=== PATIENT | male | born 1950 | race Caucasian/White ===

== ENCOUNTER 2017-03-27 16:22 | Outpatient (CLI) | payer MEDICARE, OTHER ==
--- NOTE | 2017-03-27 19:19 | MRI Report ---
EXAM: LEFT KNEE MRI WITHOUT CONTRAST EXAM DATE: 03/27/2017 06:14 PM. CLINICAL HISTORY: Left knee pain. COMPARISON: None. TECHNIQUE: Multiplanar, multisequence T1-weighted and fluid-sensitive sequences of the knee without c ontrast. Other: None. FINDINGS: Bones: Small foci of increased T2 signal seen subchondral lateral tibial plateau and also subchondral medial femoral condyle.. Marginal osteophytosis at the medial aspect of the patellofemoral joint. Articular Cartilage: Broad areas of multifocal grade 3-4 chondromalacia on both sides of the medial c ompartment. Lateral compartment also shows some grade 3-4, chondromalacia as well. Patellofemoral jaime nt shows some grade 1-2 chondromalacia at the trochlear groove. Medial Meniscus: Medial meniscus is truncated medially in the midportion. On the posterior aspect, th ere appears to be a focal fragment, which is flipped into the intercondylar notch. It is not a bucket -handle tear. Please see series 501 image 14, series 801 image 19. Lateral Meniscus: The lateral meniscus is intact. Cruciate Ligaments: The anterior and posterior cruciate ligaments are intact. Collateral Ligaments: Some edema around the MCL otherwise intact, LCL is normal. Tendons: The quadriceps, patellar, semimembranosus, and popliteus tendons are unremarkable. Musculature: No edema or fatty atrophy. Other: Trace joint effusion. Moderate multilobular popliteal cyst. No loose bodies. retinacula are i ntact, medial retinacula is somewhat swollen. No focal gaps. Subcutaneous soft tissue swelling and ed taylor seen anterior medially.. IMPRESSION: 1. Some foci of abnormal increased T2 signal subchondral lateral tibial plateau and subchondral media l femoral condyle, adjacent focal areas of grade 3-4 chondromalacia on both sides of the medial janelle rtment and some grade 3-4 chondromalacia on both sides of the lateral compartment. Patellofemoral jaime nt shows some grade 1-2 chondromalacia. 2. Medial meniscus is truncated in the midportion, posterior aspect appears to show a focal fragment flipped into the posterior intercondylar notch. This is not a bucket-handle tear. 3. Lateral meniscus, cruciates, and collaterals appear unremarkable. 4. Trace joint effusion. Moderate multilobular popliteal cyst. No loose bodies. Some subcutaneous sof t tissue swelling and edema anteromedially. [facility] MUSCULOSKELETAL RADIOLOGY SECTION Referring Provider Line: [phone] SITE ID: [id number]
== END 2017-03-27 16:23 | disposition home or self-care (01) ==
LOC: DI 16:22
PROVIDERS: ATTEND Orthopaedic Surgery
DX: M94.262 Chondromalacia, left knee (principal); M23.304 Other meniscus derangements, unspecified medial meniscus, left knee; M71.22 Synovial cyst of popliteal space [Baker], left knee; M25.462 Effusion, left knee

== ENCOUNTER 2017-04-20 10:30 | Outpatient (CLI) | payer MEDICARE, OTHER ==
[2017-04-20 10:46] LABS: BASOPHILS # (AUTO) 0.1 10^3/uL (0.0-0.1); BASOPHILS % (AUTO) 0.7 %; EOSINOPHILS # (AUTO) 0.7 10^3/uL (0.0-0.7); EOSINOPHILS % (AUTO) 8.6 %; HGB - HEMOGLOBIN 19.2 g/dL (14.0-18.0); LYMPHOCYTES # (AUTO) 1.6 10^3/uL (1.5-3.5); LYMPHOCYTES % (AUTO) 19.4 %; MEAN CORPUSCULAR HEMOGLOBIN 29.8 pg (27.0-31.0); MEAN CORPUSCULAR HGB CONC 34.2 g/dL (32.0-36.0); MEAN PLATELET VOLUME 8.7 fL (7.4-11.4); MONOCYTES # (AUTO) 0.7 10^3/uL (0.0-1.0); MONOCYTES % (AUTO) 8.9 %; NEUTROPHILS % (AUTO) 62.4 %; NUCLEATED RED BLOOD CELLS AUTO 0.2 /100WBC; RED BLOOD COUNT 6.43 10^6/uL (4.70-6.10); RED CELL DISTRIBUTION WIDTH 13.9 % (12.0-15.0); UNCORRECTED WHITE BLOOD COUNT 8.1 x10^3/uL; WHITE BLOOD COUNT 8.1 x10^3/uL (4.8-10.8)
== END 2017-04-20 10:31 | disposition home or self-care (01) ==
LOC: LAB 10:30
PROVIDERS: ATTEND Orthopaedic Surgery
DX: M17.12 Unilateral primary osteoarthritis, left knee (principal)
CPT/HCPCS: 36415; 85025; 87640

== ENCOUNTER 2017-04-28 07:59 | Inpatient (IN) | payer MEDICARE, OTHER ==
[~2017-04-28 07:59] MED LIST: ceFAZolin 2 GM/50 ML 50 ML IV ONE
[2017-04-28] MEDS ORDERED: LACTATED RINGERS 1,000 ML IV ONE ×3 (08:59→13:10)
[2017-04-28] MEDS ORDERED: MORPHINE PF 5 MG/10 ML AMP EP ONE (11:00)
[2017-04-28] MEDS ORDERED: MIDAZOLAM 2 MG/2 ML VIAL IVP ONE (11:00)
[2017-04-28] MEDS ORDERED: ACETAMINOPHEN 1,000 MG/100 ML 100 ML IV ONE (11:00)
[2017-04-28] MEDS ORDERED: ONDANSETRON 4 MG/2 ML VIAL IVP ONE (11:00)
[2017-04-28] MEDS ORDERED: KETOROLAC 30 MG/ML VIAL IVP ONE (11:00)
[2017-04-28] MEDS ORDERED: fentaNYL 100 MCG/2 ML VIAL IVP ONE (11:00)
[2017-04-28] MEDS ORDERED: PROPOFOL 200 MG/20 ML VIAL IVP ONE (11:00)
[2017-04-28] MEDS ORDERED: DEXAMETHASONE 4 MG/ML VIAL IVP ONE (11:00)
[2017-04-28] MEDS ORDERED: KETOROLAC 15 MG/ML VIAL IVP ONE (11:10)
[2017-04-28] MEDS ORDERED: MORPHINE PF 5 MG/10 ML AMP SUBQ ONE (11:10)
[2017-04-28] MEDS ORDERED: ROPIVACAINE 0.5% PF 20 ML AMPULE SUBQ ONE (11:10)
[2017-04-28] MEDS ORDERED: BUPIVACAINE 0.5% PF 30 ML VIAL SUBQ ONE (11:11)
[2017-04-28] MEDS ORDERED: EPINEPHrine 1 MG/ML AMP IVP ONE (11:11)
[2017-04-28] MEDS ORDERED: ZOLPIDEM 5 MG TABLET PO PRN (12:33)
[2017-04-28] MEDS ORDERED: [UNRECOGNIZED DRUG - OTHER] TOP PRN (12:33)
[2017-04-28] MEDS ORDERED: ACYCLOVIR TOP PRN (12:33)
[2017-04-28] MEDS ORDERED: CETIRIZINE 10 MG TABLET PO PRN (12:33)
[2017-04-28] MEDS ORDERED: ALUMINUM CHLORIDE TP PRN (12:33)
--- NOTE | 2017-04-28 12:33 | OPERATIVE REPORT ---
Operative Report - General Admit Date: 04/28/17 Procedure Date: 04/28/17 Planned Procedure: Left TKA Pre-Op Diagnosis: DJD Left knee Procedure Performed: Left TKA Post Op Diagnosis: same - Procedure Note Primary Surgeon: Zoila Anesthesia Provider: Caio Anesthesia Technique: Spinal Estimated Blood Loss (mL): 25 Drain/Tube Type: Hemovac
[2017-04-28] MEDS ORDERED: ONDANSETRON 4 MG/2 ML VIAL IVP PRN (12:35)
--- NOTE | 2017-04-28 14:23 | OPERATIVE REPORT ---
DATE OF SURGERY: 04/28/2017 00:00:00 PREOPERATIVE DIAGNOSIS: Left knee degenerative arthritis. POSTOPERATIVE DIAGNOSIS: Left knee degenerative arthritis. NAME OF PROCEDURE: Left total knee replacement arthroplasty. SURGEON: Stuart Cummings MD ANESTHESIA: Spinal by David Kearney. INDICATIONS FOR SURGERY: The patient is a 67-year-old male with progressive severe osteoarthritis of his knee. He has failed nonoperative management over a long period of time and has unremitting knee p ain not responsive to care. FINDINGS AT SURGERY: The patient's knee exam under anesthesia was 3 degrees to 120 degrees with good stability. At open surgery, he had osteophytes, effusion, areas of bare, exposed bone on both condyle s of the femur and mainly in the medial tibial compartment, the patient had some shredding of posteri or horns of the medial meniscus. DESCRIPTION OF OPERATIVE PROCEDURE: The patient was taken to the operating room, was given a spinal a nesthetic in a supine position, after which a tourniquet was placed on his thigh and his leg was ster ilely prepped and draped in standard fashion. Under tourniquet pressure of 300 mmHg and after adequat e timeout a medial incision was made on the left knee and a medial parapatellar incision. This approa ch was accomplished and the knee was able to be flexed with the patella off to the side. A rongeur wa s used to remove osteophytes and to resect the ACL and the anterior horns of the menisci were excised . With retractors in place, the intramedullary guide jeremy was placed stabilizing the distal femoral cu tting block on the femur. The cut was made, after which the distal femoral sizing was performed, sizi ng to a 10 and the appropriate 4 in 1 block obtained and inserted and the cuts made. Posterior osteop hytes on the femur were removed at this stage, including the posterior horns of the menisci. The tibi al external guide tower was applied and the cutting block at the appropriate height and slope for whi ch a proximal tibial cut was made and the bone surface sized for a tibial baseplate for a size G, the femur having sized to a 10. A trial reduction was performed and a 14 mm height poly seems to restore stability of the knee and medial and lateral planes and anterior and posterior. The patella was rese cted down to accomplish a medialized 35 mm diameter patellar for 9 mm thickness to restore anatomy. A slight lateral release was performed. The trial components were removed, and the knee was prepared f or cementing of implants utilizing Palacos with gentamicin for cementing and first cementing in the n atural tibia cemented 5-degree stemmed, size C implant followed by the size 10 cruciate retaining Per rashard femur and then inserting the 14 mm high medial congruent poly and finally inserting the 35 mm di ameter polyethylene all poly patella. Excess cement was removed. Cement was allowed to harden. A drai n was placed superior lateral. The knee was flushed thoroughly and then closed in sequential fashion, first with FiberWire closure of the medial retinaculum and 0 and 2-0 Vicryl of the subcutaneous tiss ues and Monocryl, 3-0 closure of the skin. Sterile dressings were applied. The patient was transporte d from the OR table to hospital bed and taken to recovery room in stable condition. ESTIMATED BLOOD LOSS: Minimal. COMPLICATIONS: None. SPONGE AND NEEDLE COUNTS: Correct. JOB #: [id number] EXT JOB #:[id number]
[2017-04-28] MEDS: ceFAZolin 2 GM/50 ML 50 ML IV SCH ×2 (15:19→23:59)
[2017-04-28] MEDS: SODIUM CHLORIDE FLUSH 0.9% 10 ML SYRINGE IVP SCH ×2 (15:19→21:02)
[2017-04-28] MEDS: SODIUM CHLORIDE 0.45% 1,000 ML IV SCH (15:19)
--- NOTE | 2017-04-28 18:15 | XRAY Report ---
TWO VIEW LEFT KNEE: 04/28/2017 CLINICAL INDICATION: Postop. Frontal and lateral views of the left knee demonstrate a knee replacement in place. Suprapatellar dr walden is seen. Subcutaneous gas is present. There is no evidence of acute fracture or immediate hardw are complication. IMPRESSION: EXPECTED POSTOPERATIVE APPEARANCE OF LEFT KNEE REPLACEMENT. 13:9:29 JOB #: [id number] EXT JOB #:[id number]
[2017-04-28] MEDS ORDERED: MORPHINE 2 MG/ML CARPUJECT IVP PRN (20:02)
[2017-04-28] MEDS ORDERED: oxyCODONE 5 MG TABLET PO PRN (20:04)
[2017-04-28] MEDS: ACETAMINOPHEN 325 MG TABLET PO PRN (21:00)
[2017-04-28] MEDS ORDERED: TRIAMCINOLONE 0.1% CREAM 15 GM TUBE TOP PRN (21:00)
[2017-04-28] MEDS: oxyCODONE 5 MG TABLET PO PRN (21:01)
[2017-04-29 05:44] LABS: HCT - HEMATOCRIT 44.8 % (42.0-52.0); HGB - HEMOGLOBIN 15.2 g/dL (14.0-18.0)
[2017-04-29 05:49] LABS: CALCIUM 7.8 mg/dL (8.5-10.3); CREATININE 1.2 mg/dL (0.6-1.2)
[2017-04-29] MEDS: oxyCODONE 5 MG TABLET PO PRN ×4 (06:54→19:34)
[2017-04-29] MEDS: SODIUM CHLORIDE FLUSH 0.9% 10 ML SYRINGE IVP SCH ×3 (06:59→20:09)
--- NOTE | 2017-04-29 07:43 | PROVIDER PROGRESS NOTE ---
Subjective - General Admit Date: 04/28/17 Procedure Date: 04/28/17 Post Op Days: 1 Procedure Performed: Left Total KNee Arthroplasty - Review of Systems Wound/Incisions: positive: Healing well Objective - Patient Data Reviewed Vital Signs: Yes Vital Signs: Vital Signs x48h Temp Pulse Resp BP Pulse Ox 04/29/17 06:48 36.8 C 71 18 114/60 96 04/29/17 00:58 37.0 C 78 18 116/65 94 Intake & Output: Intake and Output Totals x24h 04/27/17 04/28/17 04/29/17 23:59 23:59 23:59 Intake Total 3018 1000 Output Total 850 635 Balance 2168 365 - Lab Results Lab Results: 04/29/17 04:58 04/29/17 04:58 Other Lab Results: Lab Results x24hrs 04/29/17 04/29/17 Range/Units 04:58 04:58 Hgb 15.2 (14.0-18.0) g/dL Hct 44.8 (42.0-52.0) % Sodium 138 (135-145) mmol/L Potassium 4.0 (3.5-5.0) mmol/L Chloride 103 (101-111) mmol/L Carbon Dioxide 30 (21-32) mmol/L Anion Gap 5.0 L (6-13) BUN 18 (6-20) mg/dL Creatinine 1.2 (0.6-1.2) mg/dL Estimated GFR (MDRD) 60 L (>89) Glucose 119 H (70-100) mg/dL Calcium 7.8 L (8.5-10.3) mg/dL - Imaging Results Radiology Imaging: positive: EMP read indepedently - Current Medications Current Medications: Current Medications Generic Name Dose Route Start Last Admin Trade Name Freq PRN Reason Stop Dose Admin Acetaminophen 650 - 975 mg 04/28/17 12:35 04/28/17 21:00 Tylenol PO 650 mg Q4HR PRN Administration PAIN Sodium Chloride 1,000 mls @ 100 mls/hr 04/28/17 13:00 04/29/17 00:00 Normal Saline 0.45% IV 100 mls/hr .Q10H RASHAUN Administration Non-Formulary Medication 100 mg 04/29/17 09:00 04/29/17 07:38 Testosterone Cypionate [Depo-Testosterone] IM 04/29/17 09:01 Not Given UD [facility] Oxycodone HCl 10 mg 04/28/17 20:05 04/29/17 06:54 Roxicodone PO 10 mg Q4HR PRN Administration PAIN Sodium Chloride 10 ml 04/28/17 14:00 04/29/17 06:59 Normal Saline Flush 0.9% IVP Not Given Q8HR RASHAUN Impression/Plan - Problem List Problem List: POD #1
[2017-04-29] MEDS: THYROID 60 MG TABLET PO SCH (08:39)
[2017-04-29] MEDS: LISINOPRIL 20 MG TABLET PO SCH (08:39)
[2017-04-29] MEDS: OMEGA-3 ACID ETHYL ESTERS 1 GM CAPSULE PO SCH (08:39)
[2017-04-29] MEDS: PRAZOSIN 1 MG CAPSULE PO SCH (08:40)
[2017-04-29] MEDS ORDERED: SILDENAFIL CITRATE 100 MG PO PRN (09:00)
[2017-04-29] MEDS ORDERED: TESTOSTERONE CYPIONATE 100 MG IM SCH (09:00)
[2017-04-29] MEDS: SODIUM CHLORIDE 0.45% 1,000 ML IV SCH ×3 (11:01→23:01)
[2017-04-29] MEDS: ACETAMINOPHEN 325 MG TABLET PO PRN ×2 (12:14→20:56)
[2017-04-29] MEDS: MORPHINE 2 MG/ML SYRINGE IVP PRN ×3 (13:03→20:56)
[2017-04-29] MEDS: SODIUM CHLORIDE FLUSH 0.9% 10 ML SYRINGE IVP PRN (21:08)
[2017-04-29] MEDS: HYDROmorphone 1 MG/ML SYRINGE IVP PRN (23:04)
[2017-04-30] MEDS: HYDROmorphone 1 MG/ML SYRINGE IVP PRN ×7 (01:19→19:04)
[2017-04-30] MEDS: SODIUM CHLORIDE 0.45% 1,000 ML IV SCH ×2 (05:01→09:02)
[2017-04-30] MEDS: SODIUM CHLORIDE FLUSH 0.9% 10 ML SYRINGE IVP SCH ×3 (05:02→20:57)
[2017-04-30] MEDS: HYDROmorphone 2 MG TABLET PO PRN ×2 (05:53→11:36)
--- NOTE | 2017-04-30 07:51 | PROVIDER PROGRESS NOTE ---
Subjective - General Admit Date: 04/28/17 Procedure Date: 04/28/17 Post Op Days: 2 Procedure Performed: Left Total KNee Arthroplasty - Review of Systems Wound/Incisions: positive: Healing well General: positive: Fatigue Musculoskeletal: positive: Joint pain Objective - Patient Data Reviewed Vital Signs: Yes Vital Signs: Vital Signs x48h Temp Pulse Resp BP Pulse Ox 04/30/17 04:00 36.9 C 80 16 143/70 H 92 04/30/17 00:00 38.1 C H 79 16 138/61 H 96 Intake & Output: Intake and Output Totals x24h 04/28/17 04/29/17 04/30/17 23:59 23:59 23:59 Intake Total 3018 1760 693 Output Total 156 0243 3195 Balance 2168 -275 -782 - Lab Results Lab Results: 04/29/17 04:58 04/29/17 04:58 - Current Medications Current Medications: Current Medications Generic Name Dose Route Start Last Admin Trade Name Freq PRN Reason Stop Dose Admin Acetaminophen 650 - 975 mg 04/28/17 12:35 04/29/17 20:56 Tylenol PO 975 mg Q4HR PRN Administration PAIN Hydromorphone HCl 1 mg 04/29/17 21:47 04/30/17 07:41 Dilaudid Inj IVP 1 mg Q2HR PRN Administration moderate pain/Breakthrough black Hydromorphone HCl 2 mg 04/29/17 21:44 04/30/17 05:53 Dilaudid PO 2 mg Q6HR PRN Administration Severe Pain/Breakthrough pain Sodium Chloride 1,000 mls @ 100 mls/hr 04/28/17 13:00 04/30/17 05:01 Normal Saline 0.45% IV Not Given .Q10H RASHAUN Lisinopril 20 mg 04/29/17 09:00 04/29/17 08:39 Zestril PO 20 mg DAILY RASHAUN Administration [id number] Ethyl Esters 1 gm 04/29/17 09:00 04/29/17 08:39 Lovaza PO 1 gm DAILY RASHAUN Administration Oxycodone HCl 10 mg 04/28/17 20:05 04/29/17 19:34 Roxicodone PO 10 mg Q4HR PRN Administration PAIN Prazosin HCl 5 mg 04/29/17 09:00 04/29/17 08:40 Minipress PO 5 mg DAILY RASHAUN Administration Sodium Chloride 10 ml 04/28/17 12:35 04/29/17 21:08 Normal Saline Flush 0.9% IVP 10 ml PRN PRN Administration NEEDED PER PROVIDER ORDERS Sodium Chloride 10 ml 04/28/17 14:00 04/30/17 05:02 Normal Saline Flush 0.9% IVP Not Given Q8HR RASHAUN Thyroid 30 mg 04/29/17 09:00 04/29/17 08:39 [place] Thyroid PO 30 mg DAILY RASHAUN Administration - Physical Exam Wound/Incisions: positive: Dressing dry and intact Extremities: positive: Joint swelling Neurologic/Psychiatric: positive: Motor nml, Sensation nml, Mood/affect nml Impression/Plan - Problem List Problem List: POD#2 Continue with PT. Aim for D/C tomorrow
[2017-04-30] MEDS ORDERED: DOCUSATE SODIUM 250 MG CAPSULE PO SCH (09:00)
[2017-04-30] MEDS ORDERED: SENNA 8.6 MG TABLET PO SCH (09:00)
[2017-04-30] MEDS: PRAZOSIN 1 MG CAPSULE PO SCH (09:03)
[2017-04-30] MEDS: OMEGA-3 ACID ETHYL ESTERS 1 GM CAPSULE PO SCH (09:04)
[2017-04-30] MEDS: LISINOPRIL 20 MG TABLET PO SCH (09:04)
[2017-04-30] MEDS: POLYETHYLENE GLYCOL 3350 17 GM PACKET PO SCH (09:06)
[2017-04-30] MEDS: ENOXAPARIN 40 MG/0.4 ML SYRINGE SUBQ SCH ×2 (09:07→09:08)
[2017-04-30] MEDS: THYROID 60 MG TABLET PO SCH (10:58)
[2017-04-30] MEDS: ACETAMINOPHEN 325 MG TABLET PO PRN ×2 (11:36→15:56)
[2017-04-30] MEDS: SODIUM CHLORIDE FLUSH 0.9% 10 ML SYRINGE IVP PRN (19:04)
[2017-04-30] MEDS ORDERED: PRAZOSIN 1 MG CAPSULE PO SCH (21:00)
[2017-05-01] MEDS: SODIUM CHLORIDE FLUSH 0.9% 10 ML SYRINGE IVP PRN (00:25)
[2017-05-01] MEDS: HYDROmorphone 1 MG/ML SYRINGE IVP PRN (00:25)
[2017-05-01] MEDS: SODIUM CHLORIDE 0.45% 1,000 ML IV SCH (01:32)
[2017-05-01] MEDS ORDERED: MAGNESIUM HYDROXIDE 2,400 MG/30 ML UDC PO SCH (04:00)
[2017-05-01] MEDS: HYDROmorphone 2 MG TABLET PO PRN (05:57)
[2017-05-01] MEDS: SODIUM CHLORIDE FLUSH 0.9% 10 ML SYRINGE IVP SCH (05:59)
[2017-05-01] MEDS ORDERED: SENNA 8.6 MG TABLET PO SCH (06:00)
[2017-05-01 06:05] VITALS: BP 119/57
[2017-05-01 06:07] LABS: HCT - HEMATOCRIT 41.3 % (42.0-52.0); MEAN CORPUSCULAR HEMOGLOBIN 29.9 pg (27.0-31.0); MEAN CORPUSCULAR VOLUME 87.9 fL (80.0-94.0); MEAN PLATELET VOLUME 8.7 fL (7.4-11.4); RED BLOOD COUNT 4.69 10^6/uL (4.70-6.10); RED CELL DISTRIBUTION WIDTH 13.8 % (12.0-15.0); WHITE BLOOD COUNT 11.1 x10^3/uL (4.8-10.8)
[2017-05-01] MEDS: ACETAMINOPHEN 325 MG TABLET PO PRN (06:08)
--- NOTE | 2017-05-01 06:28 | Discharge Plan ---
Discharge Plan Disposition: 01 Home, Self Care Condition: Good Prescriptions: HYDROmorphone [Dilaudid] 2 mg PO Q4H PRN #40 tablet PRN Reason: Severe Pain/Breakthrough pain Enoxaparin [Lovenox] 40 mg SUBQ DAILY #10 syringe Senna [Senokot] 8.6 - 17.2 mg PO TID #30 tablet Walker 1 each MC DAILY #1 each Diet: Regular Activity Restrictions: Wt Bearing as Tolerated Shower Restrictions: Yes (cover left knee) Driving Restrictions: Yes (no driving) Assistance Devices: Walker Weight Bearing: Full Weight Follow-Up Care: Outpatient Rehab - PT No Smoking: If you smoke, Please STOP! Call for help. Follow-up with: Gilmar Morales DO [Primary Care Provider] - Stuart Cummings MD [Provider Admit Priv/Credential] -
--- NOTE | 2017-05-01 06:44 | PROVIDER PROGRESS NOTE ---
Subjective - General Admit Date: 04/28/17 Procedure Date: 04/28/17 Post Op Days: 3 Procedure Performed: Left Total KNee Arthroplasty - Review of Systems Wound/Incisions: positive: Dressing dry and intact General: positive: Fever (low grade fevers at night (38)) Musculoskeletal: positive: Joint pain Objective - Patient Data Reviewed Vital Signs: Yes Vital Signs: Vital Signs x48h Temp Pulse Resp BP Pulse Ox 05/01/17 06:12 38.0 C H 84 18 119/57 L 95 04/30/17 23:00 37.0 C 77 20 128/61 93 Intake & Output: Intake and Output Totals x24h 04/29/17 04/30/17 05/01/17 23:59 23:59 23:59 Intake Total 1760 2256 Output Total 2036 0351 800 Balance -575 -2259 -800 - Lab Results Lab Results: 05/01/17 05:38 04/29/17 04:58 Other Lab Results: Lab Results x24hrs 05/01/17 Range/Units 05:38 WBC 11.1 H (4.8-10.8) x10^3/uL RBC 4.69 L (4.70-6.10) 10^6/uL Hgb 14.0 (14.0-18.0) g/dL Hct 41.3 L (42.0-52.0) % MCV 87.9 (80.0-94.0) fL MCH 29.9 (27.0-31.0) pg MCHC 34.0 (32.0-36.0) g/dL RDW 13.8 (12.0-15.0) % Plt Count 144 (130-450) 10^3/uL MPV 8.7 (7.4-11.4) fL - Current Medications Current Medications: Current Medications Generic Name Dose Route Start Last Admin Trade Name Freq PRN Reason Stop Dose Admin Acetaminophen 650 - 975 mg 04/28/17 12:35 05/01/17 06:08 Tylenol PO 975 mg Q4HR PRN Administration PAIN Cetirizine HCl 5 mg 04/28/17 12:33 04/30/17 20:59 Zyrtec PO 5 mg DAILY PRN Administration Allergy Symptoms Enoxaparin Sodium 40 mg 04/30/17 08:00 04/30/17 09:08 Lovenox SUBQ 40 mg DAILY RASHAUN Administration Hydromorphone HCl 1 mg 04/29/17 21:47 05/01/17 00:25 Dilaudid Inj IVP 1 mg Q2HR PRN Administration moderate pain/Breakthrough black Hydromorphone HCl 2 mg 04/29/17 21:44 05/01/17 05:57 Dilaudid PO 2 mg Q6HR PRN Administration Severe Pain/Breakthrough pain Sodium Chloride 1,000 mls @ 100 mls/hr 04/28/17 13:00 05/01/17 01:32 Normal Saline 0.45% IV Not Given .Q10H RASHAUN Lisinopril 20 mg 04/29/17 09:00 04/30/17 09:04 Zestril PO 20 mg DAILY RASHAUN Administration [id number] Ethyl Esters 1 gm 04/29/17 09:00 04/30/17 09:04 Lovaza PO 1 gm DAILY RASHAUN Administration Oxycodone HCl 10 mg 04/28/17 20:05 04/29/17 19:34 Roxicodone PO 10 mg Q4HR PRN Administration PAIN Polyethylene Glycol 17 gm 04/30/17 09:00 04/30/17 09:06 Miralax PO 17 gm DAILY RASHAUN Administration Prazosin HCl 5 mg 04/30/17 21:00 04/30/17 20:59 Minipress PO 5 mg QPM RASHAUN Administration Senna 8.6 - 17.2 mg 05/01/17 06:00 05/01/17 06:01 Senokot PO 17.2 mg TID RASHAUN Administration Sodium Chloride 10 ml 04/28/17 12:35 05/01/17 00:25 Normal Saline Flush 0.9% IVP 10 ml PRN PRN Administration NEEDED PER PROVIDER ORDERS Sodium Chloride 10 ml 04/28/17 14:00 05/01/17 05:59 Normal Saline Flush 0.9% IVP 10 ml Q8HR RASHAUN Administration Thyroid 30 mg 04/29/17 09:00 04/30/17 10:58 [place] Thyroid PO 30 mg DAILY RASHAUN Administration Zolpidem Tartrate 2.5 mg 04/28/17 12:33 04/30/17 20:58 Ambien PO 2.5 mg HS PRN Administration Restlessness - Physical Exam Wound/Incisions: positive: Dressing dry and intact General Appearance: positive: No acute distress Extremities: positive: Joint swelling Neurologic/Psychiatric: positive: Motor nml, Sensation nml, Mood/affect nml Impression/Plan - Problem List Problem List: POD #3 pt is moving well and reasonably comfortable with PO pain meds. mild low grade fever at night. Plan to continue with meds. d/c to home, f/u next wk in clinic.
[2017-05-01] MEDS ORDERED: DOCUSATE SODIUM 250 MG CAPSULE PO SCH (09:00)
[2017-05-01] MEDS: LISINOPRIL 20 MG TABLET PO SCH (09:08)
[2017-05-01] MEDS: THYROID 60 MG TABLET PO SCH (09:08)
[2017-05-01] MEDS: OMEGA-3 ACID ETHYL ESTERS 1 GM CAPSULE PO SCH (09:09)
[2017-05-01] MEDS: ENOXAPARIN 40 MG/0.4 ML SYRINGE SUBQ SCH (09:09)
[2017-05-01] MEDS: POLYETHYLENE GLYCOL 3350 17 GM PACKET PO SCH (09:09)
--- NOTE | 2017-05-07 13:09 | DISCHARGE SUMMARY ---
DATE OF ADMISSION: 04/28/2017 DATE OF DISCHARGE: 05/01/2017 ADMISSION DIAGNOSIS: Left knee osteoarthritis. OPERATIVE PROCEDURE: Was 04/28/2017, a left total knee replacement arthroplasty. REASON FOR ADMISSION: This is a 67-year-old male with progressive severe osteoarthritis of his left k nee with increasing inability to control pain and loss of function. Recommendation was for elective t otal knee replacement arthroplasty. The patient's prior medical history is delineated in his admit no brittney. HOSPITAL COURSE: The patient was admitted. The patient underwent total knee arthroplasty, which was w ell tolerated. In the postoperative period, he was placed on the med/surg floor where he received sta ndard postoperative care after total knee replacement, including IV antibiotics, DVT prophylaxis, ear ly physical therapy and pain control. The patient did well in the following days and by 05/01/2017 hsieh d an uneventful wound healing, was tolerating p.o. pain medication and was ambulatory safely utilizin g a front-wheeled walker. At this point, he was discharged home and would have office followup in [address] [place] DISCHARGE MEDICATION To be his regular home medications, as well as 1. Dilaudid for pain. 2. Lovenox to be given as an injection for a 10 day period. JOB #: [id number] EXT JOB #:[id number]
== END 2017-05-01 10:00 | disposition home or self-care (01) | DRG 470 ==
LOC: MS3 07:59
PROVIDERS: ADMIT Orthopaedic Surgery; ATTEND Orthopaedic Surgery
PROC: 0SRD0J9 Replacement of Left Knee Joint with Synthetic Substitute, Cemented, Open Approach (ICD-10-PCS; principal; 2017-04-28 10:15)
DX: M17.12 Unilateral primary osteoarthritis, left knee (principal); G89.29 Other chronic pain; M54.9 Dorsalgia, unspecified; F32.9 Major depressive disorder, single episode, unspecified; E03.9 Hypothyroidism, unspecified; G47.30 Sleep apnea, unspecified; Z79.82 Long term (current) use of aspirin; Z79.899 Other long term (current) drug therapy
CPT/HCPCS: 36415; 80048; 85014; 85018

== ENCOUNTER 2017-05-06 14:41 | Outpatient (CLI) | payer MEDICARE, OTHER ==
--- NOTE | 2017-05-06 16:49 | Ultrasound Report ---
LEFT LEG VENOUS DUPLEX: 05/06/2017 CLINICAL INDICATION: Postop left knee replacement, pain. TECHNIQUE: Real-time sonographic vascular imaging was performed by the loan broker through the left l ower extremity utilizing both color flow and Doppler spectral analysis. Multiple corporate sales representative stati c images were saved for review. FINDINGS: A left lower extremity venous sonogram is performed revealing the common femoral, superfici al femoral, profunda femoris, and popliteal veins to be adequately visualized without intraluminal de fects. There is normal venous compression, augmentation, phasicity, and spontaneity of venous flow. I n the calf, the visualized more cephalad portions of posterior tibial and peroneal veins are grossly compressible, without filling defects. IMPRESSION: NO EVIDENCE OF DEEP VENOUS THROMBOSIS. JOB #: [id number] EXT JOB #:[id number]
== END 2017-05-06 14:42 | disposition home or self-care (01) ==
LOC: DI 14:41
PROVIDERS: ATTEND Orthopaedic Surgery
DX: M79.662 Pain in left lower leg (principal)

== ENCOUNTER 2017-05-09 16:26 | Emergency (ER) | payer MEDICARE, OTHER ==
[2017-05-09 16:43] VITALS: BP 144/80
--- NOTE | 2017-05-09 16:53 | ED Physician Documentation ---
PD HPI ABD PAIN - Stated complaint Stated Complaint: CONSTIPATED - Chief complaint Chief Complaint: Abd Pain - History obtained from History obtained from: Patient - History of Present Illness Timing - onset: Enter time PD PAST MEDICAL HISTORY - Past Medical History Past Medical History: Yes Cardiovascular: Hypertension Respiratory: Pneumonia Endocrine/Autoimmune: HyPOthyroidism GI: None : Benign prostate hypertrophy HEENT: Chronic vision loss, Chronic hearing loss, Other Psych: Post traumatic stress disorder, Other Musculoskeletal: Osteoarthritis Derm: Other - Past Surgical History Past Surgical History: Yes General: Other Ortho: Arthroscopic surgery HEENT: Tonsil/Adenoidectomy, Other - Present Medications Home Medications: Ambulatory Orders Medication Instructions Recorded Confirmed Cetirizine HCl [Zyrtec] 5 mg PO DAILY PRN 09/07/14 04/28/17 Lisinopril 20 mg PO DAILY 08/07/15 04/28/17 Thyroid,Pork [[place] Thyroid] 30 mg PO DAILY 08/07/15 04/28/17 Prazosin HCl 5 mg PO DAILY 04/20/17 04/28/17 Zolpidem [Ambien] 2.5 mg PO HS PRN 04/20/17 04/28/17 Acetaminophen [Tylenol] 650 - 975 mg PO Q4HR PRN #0 tablet 05/01/17 Enoxaparin [Lovenox] 40 mg SUBQ DAILY #10 syringe 05/01/17 HYDROmorphone [Dilaudid] 2 mg PO Q4H PRN #40 tablet 05/01/17 [place]-3 Acid Ethyl Esters [Lovaza] 1 gm PO DAILY capsule 05/01/17 Senna [Senokot] 8.6 - 17.2 mg PO TID #30 tablet 05/01/17 Walker 1 each MC DAILY #1 each 05/01/17 - Allergies Allergies/Adverse Reactions: Allergies Allergy/AdvReac Type Severity Reaction Status Date / Time amoxicillin trihydrate * AdvReac Unknown Verified 04/20/17 11:04 [From Augmentin] potassium clavulanate * AdvReac Unknown Verified 08/07/15 09:46 [From Augmentin] - Social History Does the pt smoke?: No Smoking Status: Never smoker Does the pt drink ETOH?: No Does the pt have substance abuse?: No - Immunizations Immunizations are current?: Yes - POLST Patient has POLST: No Results - Vitals Vitals: Vital Signs - 24 hr 05/09/17 16:38 Temperature 35.8 C L Heart Rate 101 H Respiratory 22 Rate Blood Pressure 144/80 H O2 Saturation 97 Oxygen O2 Source Room air
[2017-05-09] MEDS ORDERED: LORazepam 2 MG/ML SYRINGE IM STA (17:02)
--- NOTE | 2017-05-09 17:04 | ED Physician Documentation ---
PD HPI ABD PAIN - Stated complaint Stated Complaint: CONSTIPATED - Chief complaint Chief Complaint: Abd Pain - History obtained from History obtained from: Patient, Family - History of Present Illness Timing - onset: Other (He left the hospital about 8 days ago after left total knee replacement and has not had a bowel movt since, now has severe abdominal cramping despite taking laxatives.) Review of Systems Constitutional: denies: Fever, Chills GI: denies: Nausea, Vomiting, Diarrhea : denies: Dysuria, Frequency PD PAST MEDICAL HISTORY - Past Medical History Past Medical History: Yes Cardiovascular: Hypertension Respiratory: Pneumonia Endocrine/Autoimmune: HyPOthyroidism GI: None : Benign prostate hypertrophy HEENT: Chronic vision loss, Chronic hearing loss, Other Psych: Post traumatic stress disorder, Other Musculoskeletal: Osteoarthritis Derm: Other - Past Surgical History Past Surgical History: Yes General: Other Ortho: Arthroscopic surgery HEENT: Tonsil/Adenoidectomy, Other - Present Medications Home Medications: Ambulatory Orders Medication Instructions Recorded Confirmed Cetirizine HCl [Zyrtec] 5 mg PO DAILY PRN 09/07/14 04/28/17 Lisinopril 20 mg PO DAILY 08/07/15 04/28/17 Thyroid,Pork [[place] Thyroid] 30 mg PO DAILY 08/07/15 04/28/17 Prazosin HCl 5 mg PO DAILY 04/20/17 04/28/17 Zolpidem [Ambien] 2.5 mg PO HS PRN 04/20/17 04/28/17 Acetaminophen [Tylenol] 650 - 975 mg PO Q4HR PRN #0 tablet 05/01/17 Enoxaparin [Lovenox] 40 mg SUBQ DAILY #10 syringe 05/01/17 HYDROmorphone [Dilaudid] 2 mg PO Q4H PRN #40 tablet 05/01/17 [place]-3 Acid Ethyl Esters [Lovaza] 1 gm PO DAILY capsule 05/01/17 Senna [Senokot] 8.6 - 17.2 mg PO TID #30 tablet 05/01/17 Walker 1 each MC DAILY #1 each 05/01/17 Lorazepam [Ativan] 1 mg PO TID PRN #5 tablet 05/09/17 - Allergies Allergies/Adverse Reactions: Allergies Allergy/AdvReac Type Severity Reaction Status Date / Time amoxicillin trihydrate * AdvReac Unknown Verified 04/20/17 11:04 [From Augmentin] potassium clavulanate * AdvReac Unknown Verified 08/07/15 09:46 [From Augmentin] - Social History Does the pt smoke?: No Smoking Status: Never smoker Does the pt drink ETOH?: No Does the pt have substance abuse?: No - Immunizations Immunizations are current?: Yes - POLST Patient has POLST: No PD ED PE NORMAL - Vitals Vital signs reviewed: Yes - General General: Alert and oriented X 3, Other (Writhing in pain) - Abdomen Abdomen: Normal bowel sounds, Soft, Other (Mild lower abdominal tenderness) - Rectal Rectal: Other (Severe fecal impaction, an enema was placed and there was some disimpaction during the initial was in a lot of pain.) - Neuro Neuro: Alert and oriented X 3, Normal speech Results - Vitals Vitals: Vital Signs - 24 hr 05/09/17 16:38 Temperature 35.8 C L Heart Rate 101 H Respiratory 22 Rate Blood Pressure 144/80 H O2 Saturation 97 Oxygen O2 Source Room air PD MEDICAL DECISION MAKING - ED course ED course: After some manual disimpaction and a shot of Ativan and an enema he had a very large bowel movement and felt much better. Departure - Departure Disposition: 01 Home, Self Care Clinical Impression: Fecal impaction Condition: Critical Instructions: ED Impaction Fecal Treated Prescriptions: Lorazepam [Ativan] 1 mg PO TID PRN #5 tablet PRN Reason: Anxiety Comments: Continue the laxatives and drink plenty of liquids. As much as possible try to avoid the narcotic pain medication. Your blood pressure was elevated today on check into the emergency department. This does not mean that you have hypertension, it is a common phenomenon to come to the emergency department and have elevated blood pressure. I recommend that she see your primary care physician within the week to have it rechecked when you are feeling better.
[2017-05-09] MEDS ORDERED: LORazepam 2 MG/ML SYRINGE ONE (17:10)
[2017-05-09] MEDS ORDERED: MAGNESIUM CITRATE 296 ML BOTTLE PO STA ×2 (17:31→17:47)
[2017-05-09] MEDS ORDERED: MAGNESIUM CITRATE 296 ML BOTTLE ONE (17:47)
== END 2017-05-09 17:50 | disposition home or self-care (01) ==
LOC: ED 16:26
DX: K56.41 Fecal impaction (principal); I10 Essential (primary) hypertension; Z96.652 Presence of left artificial knee joint
CPT/HCPCS: 99283; A9270; J2060

== ENCOUNTER 2017-05-13 10:58 | Inpatient (IN) | payer MEDICARE, OTHER ==
[2017-05-13] MEDS ORDERED: SODIUM CHLORIDE 0.9% 1,000 ML IV ONE (11:50)
[2017-05-13] MEDS ORDERED: HYDROmorphone 1 MG/ML SYRINGE IVP STA ×2 (11:50→14:51)
[2017-05-13] MEDS ORDERED: ONDANSETRON 4 MG/2 ML VIAL IVP STA (11:50)
[2017-05-13 12:09] LABS: BASOPHILS % (AUTO) 0.2 %; EOSINOPHILS # (AUTO) 0.2 10^3/uL (0.0-0.7); EOSINOPHILS % (AUTO) 0.8 %; HCT - HEMATOCRIT 38.7 % (42.0-52.0); HGB - HEMOGLOBIN 13.1 g/dL (14.0-18.0); LYMPHOCYTES # (AUTO) 0.7 10^3/uL (1.5-3.5); LYMPHOCYTES % (AUTO) 3.9 %; MEAN CORPUSCULAR HGB CONC 33.8 g/dL (32.0-36.0); MEAN CORPUSCULAR VOLUME 85.9 fL (80.0-94.0); MEAN PLATELET VOLUME 8.5 fL (7.4-11.4); MONOCYTES # (AUTO) 1.1 10^3/uL (0.0-1.0); MONOCYTES % (AUTO) 5.7 %; NEUTROPHILS # (AUTO) 16.9 10^3/uL (1.5-6.6); NEUTROPHILS % (AUTO) 89.4 %; NUCLEATED RED BLOOD CELLS AUTO 0.1 /100WBC; RED BLOOD COUNT 4.51 10^6/uL (4.70-6.10); RED CELL DISTRIBUTION WIDTH 13.8 % (12.0-15.0); UNCORRECTED WHITE BLOOD COUNT 18.8 x10^3/uL; WHITE BLOOD COUNT 18.8 x10^3/uL (4.8-10.8)
[2017-05-13] MEDS ORDERED: HYDROmorphone 1 MG/ML SYRINGE ONE ×2 (12:21→15:02)
[2017-05-13] MEDS ORDERED: ONDANSETRON 4 MG/2 ML VIAL ONE (12:22)
--- NOTE | 2017-05-13 12:27 | ED Physician Documentation ---
History of Present Illness - Stated complaint Stated Complaint: ABD PX - Chief complaint Chief Complaint: Abd Pain - Additonal information Additional information: hx from pt 67 male s/p L total knee Apr 28 had post op constipation, seen in ED, had an enema felt better now having severe abd pain again no BM, seen in ortho office, low grade fever appeared ill and sent to ED also very SOA, denies CP, hx polycythemia vera and only got/took lovenox for 6/ ecommended 10 days post op arrives hypotensive tachypneic hypoxic ortho saw pt today and feels knee is healing well s infection Review of Systems Constitutional: reports: Fever, Chills Cardiac: denies: Chest pain / pressure Respiratory: reports: Dyspnea. denies: Cough GI: reports: Abdominal Pain, Constipation. denies: Diarrhea : denies: Dysuria Musculoskeletal: reports: Joint pain (post op L knee) Neurologic: reports: Generalized weakness Endocrine: denies: Easy bruising / bleeding (has polycythemia vera) Immunocompromised: denies: Immunocompromised PD PAST MEDICAL HISTORY - Past Medical History Past Medical History: Yes Cardiovascular: Hypertension Respiratory: Pneumonia Endocrine/Autoimmune: HyPOthyroidism GI: None : Benign prostate hypertrophy HEENT: Chronic vision loss, Chronic hearing loss, Other Psych: Post traumatic stress disorder, Other Musculoskeletal: Osteoarthritis Derm: Other - Past Surgical History Past Surgical History: Yes General: Other Ortho: Arthroscopic surgery HEENT: Tonsil/Adenoidectomy, Other - Present Medications Home Medications: Ambulatory Orders Medication Instructions Recorded Confirmed Cetirizine HCl [Zyrtec] 5 mg PO DAILY PRN 09/07/14 05/13/17 Lisinopril 20 mg PO DAILY 08/07/15 05/13/17 Thyroid,Pork [[place] Thyroid] 30 mg PO DAILY 08/07/15 05/13/17 Prazosin HCl 5 mg PO DAILY 04/20/17 05/13/17 Zolpidem [Ambien] 2.5 mg PO HS PRN 04/20/17 05/13/17 Acetaminophen [Tylenol] 650 - 975 mg PO Q4HR PRN #0 tablet 05/01/17 05/13/17 HYDROmorphone [Dilaudid] 2 mg PO Q4H PRN #40 tablet 05/01/17 05/13/17 [place]-3 Acid Ethyl Esters [Lovaza] 1 gm PO DAILY capsule 05/01/17 05/13/17 Senna [Senokot] 8.6 - 17.2 mg PO TID #30 tablet 05/01/17 05/13/17 Lorazepam [Ativan] 1 mg PO TID PRN #5 tablet 05/09/17 05/13/17 - Allergies Allergies/Adverse Reactions: Allergies Allergy/AdvReac Type Severity Reaction Status Date / Time amoxicillin trihydrate * AdvReac Unknown Verified 05/13/17 11:39 [From Augmentin] potassium clavulanate * AdvReac Unknown Verified 05/13/17 11:39 [From Augmentin] - Social History Does the pt smoke?: No Smoking Status: Never smoker Does the pt drink ETOH?: No Does the pt have substance abuse?: No - Immunizations Immunizations are current?: Yes - POLST Patient has POLST: No PD ED PE NORMAL - Vitals Vital signs reviewed: Yes - General General: Alert and oriented X 3 - HEENT HEENT: PERRL - Neck Neck: Supple, no meningeal sign - Cardiac Cardiac: RRR - Respiratory Respiratory: No respiratory distress, Clear bilaterally - Abdomen Abdomen: Soft, Other (severe diffuse TTP primaruily RUQ and suprapubic with some right sided distension) - Male Male : Referral Nurse present (nurse Tammi), Other (no hernia) - Rectal Rectal: Other ([employer] nurse Tammi, no mass, no impaction, occult blood neg QC passed) - Derm Derm: Other (warm to touch) - Extremities Extremities: Other (knee with mod edema, no sig erythema or warmth, fresh dressing applied by ortho and pt states ortho does not want it touched) Results - Vitals Vitals: Vital Signs - 24 hr 05/13/17 05/13/17 05/13/17 11:07 11:25 12:00 Temperature 37.1 C Heart Rate 102 H 88 90 Respiratory 20 20 20 Rate Blood Pressure 112/66 85/56 L 111/54 L O2 Saturation 97 92 93 05/13/17 05/13/17 12:22 13:50 Temperature 36.9 C Heart Rate 94 94 Respiratory 20 18 Rate Blood Pressure 110/55 L 100/64 O2 Saturation 94 95 Oxygen O2 Source Room air Oxygen Flow Rate 3 - EKG (time done) 1159 Rate: Rate (enter#) (92) Rhythm: NSR [place]: RAD Ischemia: Q waves (inferior). No: ST elevation c/w ischemia - Labs Labs: Laboratory Tests 05/13/17 05/13/17 05/13/17 11:30 11:30 11:30 WBC 18.8 H RBC 4.51 L Hgb 13.1 L Hct 38.7 L MCV 85.9 MCH 29.0 MCHC 33.8 RDW 13.8 Plt Count 420 MPV 8.5 Neut # 16.9 H Lymph # 0.7 L [place] # 1.1 H Eos # 0.2 Baso # 0.0 Absolute Nucleated RBC 0.01 Nucleated RBCs 0.1 Sodium 128 L Potassium 4.3 Chloride 89 L Carbon Dioxide 22 Anion Gap 17.0 H BUN 117 H* Creatinine 8.8 H* Estimated GFR (MDRD) 6 L Glucose 153 H Lactic Acid Calcium 8.1 L Magnesium Total Bilirubin 1.0 AST 39 ALT 35 Alkaline Phosphatase 54 Troponin I 0.07 Total Protein 7.2 Albumin 3.7 Globulin 3.5 Albumin/Globulin Ratio 1.1 Lipase 16 L Urine Color Urine Clarity Urine pH Ur Specific [place] Urine Protein Urine Glucose (UA) Urine Ketones Urine Occult Blood Urine Nitrite Urine Bilirubin Urine Urobilinogen Ur Leukocyte Esterase Ur Microscopic Review Urine Culture Comments 05/13/17 05/13/17 05/13/17 11:30 12:45 14:52 WBC RBC Hgb Hct MCV MCH MCHC RDW Plt Count MPV Neut # Lymph # [place] # Eos # Baso # Absolute Nucleated RBC Nucleated RBCs Sodium Potassium Chloride Carbon Dioxide Anion Gap BUN Creatinine Estimated GFR (MDRD) Glucose Lactic Acid 0.8 Calcium Magnesium 3.8 H Total Bilirubin AST ALT Alkaline Phosphatase Troponin I Total Protein Albumin Globulin Albumin/Globulin Ratio Lipase Urine Color DARK YELLOW Urine Clarity CLEAR Urine pH 5.5 Ur Specific [place] 1.025 Urine Protein NEGATIVE Urine Glucose (UA) NEGATIVE Urine Ketones NEGATIVE Urine Occult Blood NEGATIVE Urine Nitrite NEGATIVE Urine Bilirubin NEGATIVE Urine Urobilinogen 0.2 (NORMAL) Ur Leukocyte Esterase NEGATIVE Ur Microscopic Review NOT INDICATED Urine Culture Comments NOT INDICATED - Rads (name of study) CTPA Radiology: See rad report (poor contrast timing but pt has a R PE (verbal report , fax states titi PE), atelectasis) CT AP with IV con Radiology: See rad report (distended bladder and titi hydro R > L with stranding , no stones, dilated colon no transition ? ileus, gallstones s evidence of acute zoraida, no perf obstruction, AAA etc) PD MEDICAL DECISION MAKING - ED course ED course: pt had a nl creat 1.2 on 04/19 so ordered CTPA then creat came back > 8 so cancelled CTPA and changed to non con but the CT was done as an angio after all - poor contrast bolus timing but does show titi PE - gave lovenox no acute process seen on CT except distended bladder and titi hydro (which would explain lower abd pain and ARF) will place grijalva need admit if making urine and ARF is due to urinary retention (needed a grijalva post op and has been wearing a depends since then and not urinating normally) GFR should improved with drainage and hydration, if making urine and nl K feel pt can be admitted to [facility] but will d/w hospitalist stephanie as pt has now received IV contrast for CTA ( and then CT AP with residual contrast after CTPA) hospitalist agrees with plan for admit Departure - Departure Disposition: 66 [facility] DC/Xfer Clinical Impression: Urinary retention Pulmonary emboli Qualifiers: Pulmonary embolism type: other Chronicity: acute Acute cor pulmonale presence: without acute cor pulmonale Qualified Code(s): I26.99 - Other pulmonary embolism without acute cor pulmonale Hypotension Qualifiers: Hypotension type: other hypotension type Qualified Code(s): I95.89 - Other hypotension Acute renal failure Qualifiers: Acute renal failure type: unspecified Qualified Code(s): N17.9 - Acute kidney failure, unspecified Condition: Serious Discharge Date/Time: 05/13/17 15:39
[2017-05-13 12:36] LABS: ALBUMIN/GLOBULIN RATIO 1.1 (1.0-2.2); CALCIUM 8.1 mg/dL (8.5-10.3); POTASSIUM 4.3 mmol/L (3.5-5.0); TOTAL PROTEIN 7.2 g/dL (6.7-8.2)
[2017-05-13 12:41] LABS: CREATININE 8.8 mg/dL (0.6-1.2)
[2017-05-13] MEDS ORDERED: ENOXAPARIN 100 MG/ML SYRINGE SUBQ STA (12:43)
[2017-05-13] MEDS ORDERED: ENOXAPARIN 100 MG/ML SYRINGE SUBQ ONE (12:57)
[2017-05-13] MEDS ORDERED: LORazepam 2 MG/ML SYRINGE IVP STA (14:51)
[2017-05-13] MEDS ORDERED: ONDANSETRON ODT 4 MG TABLET TL PRN (15:03)
[2017-05-13] MEDS ORDERED: LORazepam 2 MG/ML SYRINGE ONE (15:03)
[2017-05-13] MEDS ORDERED: LIDOCAINE 2% URO-JET 5 ML SYRINGE UR ONE (15:03)
[2017-05-13] MEDS ORDERED: HYDROcod/ACETAM 5/325 MG TABLET PO PRN (15:03)
[2017-05-13] MEDS ORDERED: SODIUM CHLORIDE FLUSH 0.9% 10 ML SYRINGE IVP PRN (15:03)
--- NOTE | 2017-05-13 15:12 | HISTORY & PHYSICAL EXAMINATION ---
Chief Complaint - Chief Complaint Chief Complaint: short of breath, no BM and general weakness malaise History of Present Illness - Admitted From Admitted From:: ER - History Obtained From Records Reviewed: yes History obtained from: patient Exam Limitations: none - History of Present Illness HPI Comment/Other: Patient is a 67 year old male who presented to Dr Cummings office for follow up for post total knee replacement of left knee. Patient was feeling sick and thought he may have an infection when he presented at Dr Mcnulty office. Dr Cummings sent patient to the ER for further evaluation. Patient was seen in the [place] [id number], a creatinine of 8.8 and BUN of greater than 100. patient had not had a BM for a couple days. He had difficulty with urination and had severe abdominal pain and distention. He had fever and chills and was tachycardic. He had not had symptoms like this before and his pain was 9/10. He was pale and diaphoretic. He considers his symptoms to be severe. While in the ER a grijalva was placed and the patient had output of 2 liters dark yellow urine. A urinalysis was sent for analysis and no UTI present. He was febrile at home with chills. He took his usual pain medications for the pain. He has mild chest pain and shortness of breath. He admits to nausea and some vomiting. He had a CTA in the ER that showed a PE. Patient had a CTA per the ER provider even though his creatinine was 8.8. The ER provider did try to cancel this after learning of the kidney function. Patient was given several boluses of IVF NS for aggressive hydration. He has been admitted with urinary obstruction with bilateral hydronephrosis and acute kidney injury secondary to sepsis Review of Systems - Constitutional Constitutional: reports: Fatigue, Fever, Chills, Malaise, Weakness, Poor appetite - Cardiovascular Cariovascular: reports: Lightheadedness, Exertional dyspnea - Respiratory Respiratory: reports: SOB at rest, SOB with exertion - Gastrointestinal Gastrointestinal: reports: Abdominal pain, Abdominal distention, Constipation, Bloating - Genitourinary Genitourinary: reports: Hematuria, Other (unable to void) - Musculoskeletal Musculoskeletal: reports: Muscle pain, Muscle aches - Neurological Neurological: reports: General weakness, Dizziness - All Other Systems All Other Systems: reports: Reviewed and negative History - Past Medical History Cardiovascular: reports: Hypertension Respiratory: reports: Pneumonia Endocrine/Autoimmune: reports: HyPOthyroidism GI: reports: GERD : reports: Benign prostate hypertrophy HEENT: reports: Chronic vision loss, Chronic hearing loss, Other Psych: reports: Post traumatic stress disorder, Other Musculoskeletal: reports: Osteoarthritis Derm: reports: Other MRSA Hx?: No Other Past Medical History: low testosterone levels - Past Surgical History General: reports: Other Ortho: reports: Arthroscopic surgery HEENT: reports: Tonsil/Adenoidectomy, Other - Family & Social History Family History: Mother: (parents unknown ), Father: Family History Comment/Other: patient states his parents abadoned him when he was young and he grew up with his grandmother in [place] Living arrangement: At home Living Situation: With spouse/s.o. - Substance History Use: Uses substance without health or social issues: Alcohol Abuse: Recurrent use of substance despite neg consequences: NONE Dependence: Experiences withdrawal or developed tolerances: NONE - POLST Patient has POLST: No POLST Status: Full Code Meds/Allgy - Home Medications Home Medications: Ambulatory Orders Medication Instructions Recorded Confirmed Cetirizine HCl [Zyrtec] 5 mg PO DAILY PRN 09/07/14 05/13/17 Lisinopril 20 mg PO DAILY 08/07/15 05/13/17 Thyroid,Pork [[place] Thyroid] 30 mg PO DAILY 08/07/15 05/13/17 Prazosin HCl 5 mg PO DAILY 04/20/17 05/13/17 Zolpidem [Ambien] 2.5 mg PO HS PRN 04/20/17 05/13/17 Acetaminophen [Tylenol] 650 - 975 mg PO Q4HR PRN #0 tablet 05/01/17 05/13/17 HYDROmorphone [Dilaudid] 2 mg PO Q4H PRN #40 tablet 05/01/17 05/13/17 [place]-3 Acid Ethyl Esters [Lovaza] 1 gm PO DAILY capsule 05/01/17 05/13/17 Lorazepam [Ativan] 1 mg PO TID PRN #5 tablet 05/09/17 05/13/17 Aspirin [Aspir-Low] 81 mg PO DAILY 05/13/17 05/13/17 Celecoxib [Celecoxib] 200 mg PO DAILY 05/13/17 05/13/17 Testosterone Cypionate 200 mg IM UD 05/13/17 05/13/17 [Depo-Testosterone] - Allergies Allergies/Adverse Reactions: Allergies Allergy/AdvReac Type Severity Reaction Status Date / Time amoxicillin trihydrate * AdvReac Unknown Verified 05/13/17 11:39 [From Augmentin] potassium clavulanate * AdvReac Unknown Verified 05/13/17 11:39 [From Augmentin] Exam - Vital Signs Reviewed Vital Signs: Yes Vital Signs: Vital Signs x48h Temp Pulse Resp BP Pulse Ox 05/13/17 13:50 36.9 C 94 18 100/64 95 05/13/17 12:22 94 20 110/55 L 94 05/13/17 12:00 90 20 111/54 L 93 05/13/17 11:25 88 20 85/56 L 92 05/13/17 11:07 37.1 C 102 H 20 112/66 97 - Physical Exam General Appearance: positive: No acute distress, Alert Eyes Bilateral: positive: Normal inspection, PERRL, EOMI ENT: positive: ENT inspection nml, Pharynx nml, No signs of dehydration Neck: positive: Nml inspection, Thyroid nml, No JVD, Trachea midline Respiratory: positive: Chest non-tender, No respiratory distress, Breath sounds nml Cardiovascular: positive: Regular rate & rhythm, No murmur, No gallop Peripheral Pulses: positive: 2+ Abdomen: positive: Tenderness, Guarding, Other (distention and pain with palpation to pelvic region. grijalva draining blood tinged urine). negative: Hepatomegaly, Splenomegaly Back: positive: Nml inspection, CVA tenderness (R), CVA tenderness (L) Skin: positive: Color nml, No rash, Warm, Dry Extremities: positive: Non-tender, Full ROM, No pedal edema, Pedal edema, Other (left knee with post total knee sx) Neurologic/Psychiatric: positive: Oriented x3, CN's nml (2-12), Motor nml, Sensation nml, Mood/affect nml Conclusion/Plan - Problem List (1) Sepsis with acute organ dysfunction Conclusion/Plan: acute. with acute kidney injury from bilateral hydronephrosis. IVF for aggressive hydration and grijalva to gravity with 2 liters output at this time. Tylenol for fever. blood cultures obtained and urine culture ordered. continue with IV pain medications. ultrasound of the bladder ordered. continue on flomax. continue to monitor kidney function and CBC daily with morning labs (2) Pulmonary embolism without acute cor pulmonale Conclusion/Plan: acute. Patient has bilateral pulmonary embolism after left total knee arthroplasty started on Lovenox 100mg. supplemental oxygen 2 liters NC with RT support Qualifiers: Pulmonary embolism type: septic Chronicity: acute Qualified Code(s): I26.90 - Septic pulmonary embolism without acute cor pulmonale (3) Acute kidney injury (nontraumatic) Conclusion/Plan: acute with bilateral hydronephorsis with perinephric stranding. grijalva to gravity and repeat kidney function testing and monitor output (4) Hypermagnesemia Conclusion/Plan: continue to hydrate patient with NS and recheck electrolytes with morning labs (5) S/P left knee arthroscopy Conclusion/Plan: acute. Dr Cummings and Nate on consult and saw patient in office and sent to the ER. No formal consult in place but have seen patient to monitor for left knee replacement. will continue with physical therapy as scheduled from knee replacement - Lab Results Lab results reviewed: Yes Fish Bones: 05/16/17 05:23 05/16/17 05:23 Other Lab Results: Abnormal Lab Results 05/13/17 05/13/17 11:30 11:30 WBC 18.8 x10^3/uL H x10^3/uL (4.8-10.8) RBC 4.51 10^6/uL L 10^6/uL (4.70-6.10) Hgb 13.1 g/dL L g/dL (14.0-18.0) Hct 38.7 % L % (42.0-52.0) Neut # 16.9 10^3/uL H 10^3/uL (1.5-6.6) Lymph # 0.7 10^3/uL L 10^3/uL (1.5-3.5) [place] # 1.1 10^3/uL H 10^3/uL (0.0-1.0) Sodium 128 mmol/L L mmol/L (135-145) Chloride 89 mmol/L L mmol/L (101-111) Anion Gap 17.0 H (6-13) BUN 117 mg/dL H* mg/dL (6-20) Creatinine 8.8 mg/dL H* mg/dL (0.6-1.2) Estimated GFR (MDRD) 6 L (>89) Glucose 153 mg/dL H mg/dL (70-100) Calcium 8.1 mg/dL L mg/dL (8.5-10.3) Lipase 16 U/L L U/L (22-51) - Diagnostic Imaging Results Diagnostic Imaging Results: positive: Prelim report reviewed Diagnostic Imaging Results Comments: CT of Abdomen and Pelvis showed bilateral hydronephrosis and possible ileus - EKG Results EKG Interpreted Independently: No EKG Comparison: Unchanged from prior EKG EKG Findings: sinus rate and rhythm Issues/Core Measures - Anticipated LOS Anticipated Stay Length: 2 or more midnights - Issues Hospital Issues and Management Plan: Time spent with patient at admission was 45 minutes for planning and assessment. - DVT/VTE - Prophylaxis VTE/DVT Device ordered at admit?: Yes VTE/DVT Prophylaxis med ordered at admit?: Yes - Stroke - Rehab Assessment Rehab services assessment to be ordered?: No - AMI - Statin at Admit Aspirin Prescribed on Admit: No
[2017-05-13 15:28] LABS: BILIRUBIN,URINE NEGATIVE (NEGATIVE); PH,URINE 5.5 PH (5.0-7.5)
[2017-05-13 15:37] LABS: UA CHARGE (STRIP ONLY) YES; UR CULTURE IF IND NOT INDICATED
[2017-05-13] MEDS ORDERED: HYDROmorphone 1 MG/ML SYRINGE IVP ONE (16:30)
[2017-05-13] MEDS: SODIUM CHLORIDE 0.9% 1,000 ML IV SCH ×2 (16:59→20:35)
[2017-05-13] MEDS: PANTOPRAZOLE 40 MG TABLET PO SCH (17:13)
[2017-05-13] MEDS: SODIUM CHLORIDE FLUSH 0.9% 10 ML SYRINGE IVP SCH (17:15)
[2017-05-13 17:26] LABS: TROPONIN I 0.09 ng/mL (<0.49)
[2017-05-13 17:28] LABS: CREATINE KINASE MB 11.5 ng/mL (0.6-6.3)
[2017-05-13 17:42] LABS: CALCIUM 7.5 mg/dL (8.5-10.3); MAGNESIUM 3.6 mg/dL (1.7-2.8); PHOSPHORUS 6.5 mg/dL (2.5-4.6); POTASSIUM 4.2 mmol/L (3.5-5.0); TOTAL PROTEIN 6.5 g/dL (6.7-8.2)
[2017-05-13] MEDS ORDERED: SODIUM CHLORIDE 0.9% 500 ML IV ONE (17:55)
[2017-05-13 18:03] LABS: FREE T3 2.71 pg/mL (2.5-3.9)
[2017-05-13 18:04] LABS: CREATININE 7.3 mg/dL (0.6-1.2)
[2017-05-13 18:21] LABS: THYROID STIMULATING HORMONE 1.27 uIU/mL (0.34-5.60)
[2017-05-13 18:30] LABS: INR 1.2 (0.8-1.2)
[2017-05-13] MEDS ORDERED: BISACODYL 10 MG SUPP PR PRN (19:15)
[2017-05-13] MEDS ORDERED: LORazepam 2 MG/ML VIAL IVP PRN (19:16)
[2017-05-13] MEDS ORDERED: HYDROmorphone 1 MG/ML SYRINGE IVP PRN (19:16)
[2017-05-13] MEDS: TAMSULOSIN 0.4 MG CAPSULE PO SCH (20:25)
[2017-05-13] MEDS: GABAPENTIN 300 MG CAPSULE PO SCH (20:25)
[2017-05-13 23:10] LABS: TROPONIN I 0.07 ng/mL (<0.49)
[2017-05-13 23:12] LABS: CREATINE KINASE MB 9.6 ng/mL (0.6-6.3)
[2017-05-14] MEDS: SODIUM CHLORIDE FLUSH 0.9% 10 ML SYRINGE IVP SCH ×3 (05:38→21:41)
[2017-05-14] MEDS: PANTOPRAZOLE 40 MG TABLET PO SCH (05:43)
[2017-05-14] MEDS: SENNA 8.6 MG TABLET PO SCH ×3 (05:43→21:40)
[2017-05-14] MEDS ORDERED: SENNA 8.6 MG TABLET ONE (05:46)
[2017-05-14] MEDS: SODIUM CHLORIDE 0.9% 1,000 ML IV SCH ×4 (05:47→22:41)
[2017-05-14 06:00] LABS: BASOPHILS # (AUTO) 0.1 10^3/uL (0.0-0.1); BASOPHILS % (AUTO) 0.9 %; EOSINOPHILS # (AUTO) 0.5 10^3/uL (0.0-0.7); EOSINOPHILS % (AUTO) 4.2 %; HCT - HEMATOCRIT 38.2 % (42.0-52.0); HGB - HEMOGLOBIN 12.7 g/dL (14.0-18.0); LYMPHOCYTES % (AUTO) 8.7 %; MEAN CORPUSCULAR HEMOGLOBIN 29.1 pg (27.0-31.0); MEAN CORPUSCULAR HGB CONC 33.3 g/dL (32.0-36.0); MEAN CORPUSCULAR VOLUME 87.3 fL (80.0-94.0); MEAN PLATELET VOLUME 8.3 fL (7.4-11.4); MONOCYTES # (AUTO) 0.8 10^3/uL (0.0-1.0); MONOCYTES % (AUTO) 6.8 %; NEUTROPHILS % (AUTO) 79.4 %; RED BLOOD COUNT 4.37 10^6/uL (4.70-6.10); RED CELL DISTRIBUTION WIDTH 13.9 % (12.0-15.0); UNCORRECTED WHITE BLOOD COUNT 11.4 x10^3/uL; WHITE BLOOD COUNT 11.4 x10^3/uL (4.8-10.8)
[2017-05-14 06:06] LABS: ALBUMIN/GLOBULIN RATIO 0.9 (1.0-2.2); BILIRUBIN,TOTAL 1.4 mg/dL (0.2-1.0); CALCIUM 7.8 mg/dL (8.5-10.3); CREATININE 3.2 mg/dL (0.6-1.2); POTASSIUM 4.4 mmol/L (3.5-5.0); TOTAL PROTEIN 6.4 g/dL (6.7-8.2)
[2017-05-14] MEDS ORDERED: LORazepam 2 MG/ML SYRINGE IVP PRN (06:58)
--- NOTE | 2017-05-14 08:36 | PROVIDER PROGRESS NOTE ---
Assessment/Plan - Problem List (1) Pulmonary embolism without acute cor pulmonale Qualifiers: Chronicity: acute Assessment/Plan: acute. patient is receiving Lovenox SQ renal dosage. his kidney function is improving and he should now be on BID. He will need to continue on outpatient anticoagulation therapy probably with coumadin or xarelto. He is on supplemental oxygen NC with RT asssistance as needed. monitor kidney function and for SOB (2) Acute kidney injury (nontraumatic) Assessment/Plan: acute but improving. Creatinine today has improved to 3.3 from 8.[address] draining yellow urine. he has good output. He continues to receive IVF NS at 250ml/hr and will continue to monitor kidney function with daily lab draws and avoid nephrotoxic medications (3) Urinary retention Assessment/Plan: improving with grijalva in place. patient does have enlarged prostate and will continue on flomax. will need to have referral to urologist outpatient. (4) Hyperphosphatemia Assessment/Plan: improving. continue with IVF and monitor levels with daily lab draws. was 6.5 (5) Hypermagnesemia Assessment/Plan: improving. now at 3.3 from 4.8. patient is still receiving IVF for hydration and will continue to monitor with daily lab draws - Current Meds Current Meds: Current Medications Generic Name Dose Route Start Last Admin Trade Name Freq PRN Reason Stop Dose Admin Bisacodyl 10 mg 05/13/17 19:15 05/13/17 20:33 Dulcolax Supp [place] 10 mg DAILY PRN Administration Constipation Gabapentin 300 mg 05/13/17 21:00 05/13/17 20:25 Neurontin PO 300 mg QPM RASHAUN Administration Hydromorphone HCl 1 mg 05/13/17 19:16 05/13/17 23:46 Dilaudid Inj IVP 1 mg Q2HR PRN Administration PAIN Sodium Chloride 1,000 mls @ 100 mls/hr 05/13/17 16:00 05/14/17 05:47 Normal Saline 0.9% IV 100 mls/hr .Q10H RASHAUN Administration Pantoprazole Sodium 40 mg 05/13/17 16:00 05/14/17 05:43 Protonix PO 40 mg QDAC RASHAUN Administration Senna 8.6 - 17.2 mg 05/14/17 06:00 05/14/17 05:43 Senokot PO 8.6 mg TID RASHAUN Administration Sodium Chloride 10 ml 05/13/17 22:00 05/14/17 05:38 Normal Saline Flush 0.9% IVP Not Given Q8HR RASHAUN Tamsulosin HCl 0.4 mg 05/13/17 19:19 05/13/17 20:25 Flomax PO 0.4 mg DAILY RASHAUN Administration - Lab Result Lab results reviewed: Yes Fish Bone Diagrams: 05/14/17 05:15 05/14/17 05:15 Other Lab Results: Abnormal Lab Results 05/13/17 05/13/17 05/13/17 11:30 11:30 11:30 WBC 18.8 x10^3/uL H x10^3/uL (4.8-10.8) RBC 4.51 10^6/uL L 10^6/uL (4.70-6.10) Hgb 13.1 g/dL L g/dL (14.0-18.0) Hct 38.7 % L % (42.0-52.0) Neut # 16.9 10^3/uL H 10^3/uL (1.5-6.6) Lymph # 0.7 10^3/uL L 10^3/uL (1.5-3.5) [place] # 1.1 10^3/uL H 10^3/uL (0.0-1.0) PT Sodium 128 mmol/L L mmol/L (135-145) Chloride 89 mmol/L L mmol/L (101-111) Carbon Dioxide Anion Gap 17.0 H (6-13) BUN 117 mg/dL H* mg/dL (6-20) Creatinine 8.8 mg/dL H* mg/dL (0.6-1.2) Estimated GFR (MDRD) 6 L (>89) Glucose 153 mg/dL H mg/dL (70-100) Calcium 8.1 mg/dL L mg/dL (8.5-10.3) Phosphorus Magnesium 3.8 mg/dL H mg/dL (1.7-2.8) Total Bilirubin Total Creatine Kinase CK-MB (CK-2) Total Protein Albumin Albumin/Globulin Ratio Lipase 16 U/L L U/L (22-51) Total Testosterone 05/13/17 05/13/17 05/13/17 11:34 16:55 16:55 WBC RBC Hgb Hct Neut # Lymph # [place] # PT 14.0 secs H secs (9.9-12.6) Sodium 128 mmol/L L mmol/L (135-145) Chloride 95 mmol/L L mmol/L (101-111) Carbon Dioxide 20 mmol/L L mmol/L (21-32) Anion Gap BUN 113 mg/dL H* mg/dL (6-20) Creatinine 7.3 mg/dL H* mg/dL (0.6-1.2) Estimated GFR (MDRD) 8 L (>89) Glucose 168 mg/dL H mg/dL (70-100) Calcium 7.5 mg/dL L mg/dL (8.5-10.3) Phosphorus 6.5 mg/dL H mg/dL (2.5-4.6) Magnesium 3.6 mg/dL H mg/dL (1.7-2.8) Total Bilirubin Total Creatine Kinase 387 IU/L H IU/L (22-269) CK-MB (CK-2) Total Protein 6.5 g/dL L g/dL (6.7-8.2) Albumin Albumin/Globulin Ratio Lipase Total Testosterone 05/13/17 05/13/17 05/13/17 16:55 16:55 22:45 WBC RBC Hgb Hct Neut # Lymph # [place] # PT Sodium Chloride Carbon Dioxide Anion Gap BUN Creatinine Estimated GFR (MDRD) Glucose Calcium Phosphorus Magnesium Total Bilirubin Total Creatine Kinase 371 IU/L H IU/L (22-269) CK-MB (CK-2) 11.5 ng/mL H ng/mL (0.6-6.3) Total Protein Albumin Albumin/Globulin Ratio Lipase Total Testosterone 271 ng/dL L ng/dL (350-720) 05/13/17 05/14/17 05/14/17 22:45 05:15 05:15 WBC 11.4 x10^3/uL H x10^3/uL (4.8-10.8) RBC 4.37 10^6/uL L 10^6/uL (4.70-6.10) Hgb 12.7 g/dL L g/dL (14.0-18.0) Hct 38.2 % L % (42.0-52.0) Neut # 9.0 10^3/uL H 10^3/uL (1.5-6.6) Lymph # 1.0 10^3/uL L 10^3/uL (1.5-3.5) [place] # PT Sodium Chloride Carbon Dioxide Anion Gap BUN 77 mg/dL H mg/dL (6-20) Creatinine 3.2 mg/dL H mg/dL (0.6-1.2) Estimated GFR (MDRD) 19 L (>89) Glucose 106 mg/dL H mg/dL (70-100) Calcium 7.8 mg/dL L mg/dL (8.5-10.3) Phosphorus Magnesium Total Bilirubin 1.4 mg/dL H mg/dL (0.2-1.0) Total Creatine Kinase CK-MB (CK-2) 9.6 ng/mL H ng/mL (0.6-6.3) Total Protein 6.4 g/dL L g/dL (6.7-8.2) Albumin 3.1 g/dL L g/dL (3.2-5.5) Albumin/Globulin Ratio 0.9 L (1.0-2.2) Lipase Total Testosterone - EKG Results EKG Interpreted Independently: Yes EKG Comparison: Unchanged from prior EKG (Patient will need another 24-48 hours inpatient for treatment due to needing additional IV medications and further diagnostics) - Diagnostic Imaging Results Diagnostic Imaging Results: Final report reviewed - Additional Planning Condition/Complexity: Improved My Orders: My Active Orders 05/13/17 17:55 Enema [RC] .ONCE 05/13/17 19:15 Bisacodyl Supp [Dulcolax Supp] 10 mg [place] DAILY PRN 05/13/17 19:16 HYDROmorphone INJ [Dilaudid Inj] 1 mg IVP Q2HR PRN 05/13/17 19:19 Tamsulosin [Flomax] 0.4 mg PO DAILY 05/13/17 21:00 Gabapentin [Neurontin] 300 mg PO QPM 05/14/17 PHOSPHORUS [CHEM] Stat 05/14/17 06:00 Senna [Senokot] 8.6 - 17.2 mg PO TID 05/14/17 06:58 LORazepam INJ [Ativan Inj] 1 mg IVP Q2H PRN 05/14/17 08:31 CK- CREATINE KINASE [CHEM] Stat MAGNESIUM [CHEM] Stat 05/14/17 09:00 Docusate Sodium 250Mg Capsule [Colace 250Mg Capsule] 250 - 500 mg PO DAILY Enoxaparin [Lovenox] 100 mg SUBQ DAILY [place]-3 Acid Ethyl Esters [Lovaza] 1 gm PO DAILY Thyroid [[place] Thyroid] 30 mg PO DAILY 05/14/17 Breakfast Clear Liquid Diet [DIET] 05/15/17 05:00 CBC - COMP BLD CT W/AUTO DIFF [HEME] DAILYLAB CMP [COMPREHENSIVE METABOLIC PANEL] [CHEM] DAILYLAB Consult/Specialty: OT, PT, Surgery Plan Discussed with:: Patient, Spouse Time Spent: 31-60 minutes Subjective - Subjective Patient Reports: Feeling Better, Resting Comfortably, No Complaints, Constipation (resolving. patient had large BM last night. he feels better and not as bloated today.) Nursing Reports: No Complaints Objective Vital Signs: Vital Signs - 24 hr 05/13/17 05/13/17 05/13/17 15:19 15:56 20:03 Temperature 36.5 C 36.9 C Heart Rate 81 Heart Rate [ 89 85 Brachial] Respiratory 18 16 20 Rate Blood Pressure 111/59 L Blood Pressure 118/59 L [Left Brachial artery] Blood Pressure 123/57 L [Right Brachial artery] O2 Saturation 92 95 94 05/13/17 05/14/17 05/14/17 23:30 04:34 07:43 Temperature 36.9 C 36.8 C 36.6 C Heart Rate Heart Rate [ 78 82 83 Brachial] Respiratory 18 20 17 Rate Blood Pressure Blood Pressure 138/69 H [Left Brachial artery] Blood Pressure 113/50 L 128/63 [Right Brachial artery] O2 Saturation 93 92 95 Oxygen O2 Source Nasal cannula I&O (Last 24 Hrs): Intake and Output Totals x24h 05/12/17 05/13/17 05/14/17 23:59 23:59 23:59 Intake Total 1036 910 Output Total 4100 2950 Balance -3064 -2040 General: Alert, Oriented x3, Cooperative HEENT: Atraumatic, PERRLA, EOMI, Mucous membr. moist/pink Neck: Supple, No JVD, No thyromegaly Lymphatic: no adenopathy Neuro: Alert, Disoriented, CN 2-12 Grossly Intact, Oriented Times 3 Cardiovascular: Regular rate, Normal S1, Normal S2, No murmurs Respiratory: Chest non-tender, No respiratory distress, Breath sounds nml Abdomen: Normal bowel sounds, Soft, No hepatospenomegaly, No masses Genitourinary: Normal Inspection Extremities: No clubbing, No cyanosis, No edema, No tenderness/swelling Skin: No rashes, No breakdown, No significant lesion - Results Results: Laboratory Results WBC 11.4 x10^3/uL (4.8-10.8) H 05/14/17 05:15 RBC 4.37 10^6/uL (4.70-6.10) L 05/14/17 05:15 Hgb 12.7 g/dL (14.0-18.0) L 05/14/17 05:15 Hct 38.2 % (42.0-52.0) L 05/14/17 05:15 MCV 87.3 fL (80.0-94.0) 05/14/17 05:15 MCH 29.1 pg (27.0-31.0) 05/14/17 05:15 MCHC 33.3 g/dL (32.0-36.0) 05/14/17 05:15 RDW 13.9 % (12.0-15.0) 05/14/17 05:15 Plt Count 365 10^3/uL (130-450) 05/14/17 05:15 MPV 8.3 fL (7.4-11.4) 05/14/17 05:15 Neut # 9.0 10^3/uL (1.5-6.6) H 05/14/17 05:15 Lymph # 1.0 10^3/uL (1.5-3.5) L 05/14/17 05:15 [place] # 0.8 10^3/uL (0.0-1.0) 05/14/17 05:15 Eos # 0.5 10^3/uL (0.0-0.7) 05/14/17 05:15 Baso # 0.1 10^3/uL (0.0-0.1) 05/14/17 05:15 Absolute Nucleated RBC 0.00 x10^3/uL 05/14/17 05:15 Nucleated RBCs 0.0 /100WBC 05/14/17 05:15 PT 14.0 secs (9.9-12.6) H 05/13/17 11:34 INR 1.2 (0.8-1.2) 05/13/17 11:34 Sodium 137 mmol/L (135-145) 05/14/17 05:15 Potassium 4.4 mmol/L (3.5-5.0) 05/14/17 05:15 Chloride 106 mmol/L (101-111) 05/14/17 05:15 Carbon Dioxide 23 mmol/L (21-32) 05/14/17 05:15 Anion Gap 8.0 (6-13) 05/14/17 05:15 BUN 77 mg/dL (6-20) H 05/14/17 05:15 Creatinine 3.2 mg/dL (0.6-1.2) H 05/14/17 05:15 Estimated GFR (MDRD) 19 (>89) L 05/14/17 05:15 Glucose 106 mg/dL (70-100) H 05/14/17 05:15 Lactic Acid 0.8 mmol/L (0.5-2.2) 05/13/17 12:45 Calcium 7.8 mg/dL (8.5-10.3) L 05/14/17 05:15 Phosphorus 6.5 mg/dL (2.5-4.6) H 05/13/17 16:55 Magnesium 3.6 mg/dL (1.7-2.8) H 05/13/17 16:55 Total Bilirubin 1.4 mg/dL (0.2-1.0) H 05/14/17 05:15 AST 35 IU/L (10-42) 05/14/17 05:15 ALT 33 IU/L (10-60) 05/14/17 05:15 Alkaline Phosphatase 46 IU/L (42-121) 05/14/17 05:15 Total Creatine Kinase 371 IU/L (22-269) H 05/13/17 22:45 CK-MB (CK-2) 9.6 ng/mL (0.6-6.3) H 05/13/17 22:45 Troponin I 0.07 ng/mL (<0.49) 05/13/17 22:45 Total Protein 6.4 g/dL (6.7-8.2) L 05/14/17 05:15 Albumin 3.1 g/dL (3.2-5.5) L 05/14/17 05:15 Globulin 3.3 g/dL (2.1-4.2) 05/14/17 05:15 Albumin/Globulin Ratio 0.9 (1.0-2.2) L 05/14/17 05:15 Lipase 16 U/L (22-51) L 05/13/17 11:30 TSH 1.27 uIU/mL (0.34-5.60) 05/13/17 16:55 Free T4 0.85 ng/dL (0.58-1.64) 05/13/17 16:55 Free T3 pg/mL 2.71 pg/mL (2.5-3.9) 05/13/17 16:55 Total Testosterone 271 ng/dL (350-720) L 05/13/17 16:55 Urine Color DARK YELLOW 05/13/17 14:52 Urine Clarity CLEAR (CLEAR) 05/13/17 14:52 Urine pH 5.5 PH (5.0-7.5) 05/13/17 14:52 Ur Specific [place] 1.025 (1.002-1.030) 05/13/17 14:52 Urine Protein NEGATIVE mg/dL (NEGATIVE) 05/13/17 14:52 Urine Glucose (UA) NEGATIVE mg/dL (NEGATIVE) 05/13/17 14:52 Urine Ketones NEGATIVE mg/dL (NEGATIVE) 05/13/17 14:52 Urine Occult Blood NEGATIVE (NEGATIVE) 05/13/17 14:52 Urine Nitrite NEGATIVE (NEGATIVE) 05/13/17 14:52 Urine Bilirubin NEGATIVE (NEGATIVE) 05/13/17 14:52 Urine Urobilinogen 0.2 (NORMAL) E.U./dL (NORMAL) 05/13/17 14:52 Ur Leukocyte Esterase NEGATIVE (NEGATIVE) 05/13/17 14:52 Ur Microscopic Review NOT INDICATED 05/13/17 14:52 Urine Culture Comments NOT INDICATED 05/13/17 14:52 - Procedures Procedures: Procedures REPLACE OF L KNEE JT WITH SYNTH SUB, CEMENT, OPEN APPROACH (04/28/17)
[2017-05-14] MEDS ORDERED: ENOXAPARIN 100 MG/ML SYRINGE SUBQ SCH (09:00)
[2017-05-14 09:26] LABS: MAGNESIUM 3.3 mg/dL (1.7-2.8)
--- NOTE | 2017-05-14 09:53 | CT Report ---
CT ABDOMEN AND PELVIS WITHOUT CONTRAST: 05/13/2017 CLINICAL INDICATION: Abdominal pain, fever, postop. TECHNIQUE: Axial CT images of the abdomen and pelvis were inadvertently obtained with 100 mL Isovue- [address] is available for comparison. FINDINGS: ABDOMEN: The liver, spleen, pancreas and adrenal glands appear unremarkable. There is moderate bila teral hydronephrosis and hydroureter, with left perinephric and periureteric stranding. No renal daja culi are appreciated. Cholelithiasis is present. There is moderate dilatation of the colon, without evidence of small bowel dilatation, likely representing postoperative ileus. No free intraperitonea l gas or fluid is seen. No abdominal adenopathy is appreciated. Trace right paracolic fluid is note d. PELVIS: The urinary bladder is distended. No pelvic adenopathy or free fluid is seen. No definite colonic mass is identified. Osseous structures demonstrate degenerative changes. IMPRESSION: 1. BILATERAL HYDRONEPHROSIS, WITH LEFT PERINEPHRIC AND PERIURETERIC STRANDING. THIS MAY BE SECONDAR Y TO BLADDER OUTLET OBSTRUCTION. NO DEFINITE NEPHROLITHIASIS IS SEEN. 2. CHOLELITHIASIS. 3. MODERATELY DILATED COLON, WITHOUT EVIDENCE OF DEFINITE OBSTRUCTING MASS OR TRANSITION POINT. THI S MAY BE POSTOPERATIVE IN ETIOLOGY. In accordance with CT protocol optimization, one or more of the following dose reduction techniques w ere utilized for this exam: automated exposure control, adjustment of mA and/or KV based on patient size, or use of iterative reconstructive technique. JOB #: [id number] EXT JOB #:
--- NOTE | 2017-05-14 09:53 | CT Report ---
CT CHEST WITHOUT CONTRAST: 05/13/2017 CLINICAL INDICATION: Postop shortness of breath. TECHNIQUE: Axial CT images of the chest were inadvertently obtained with 100 mL Isovue-300 intraveno usly. Sagittal and coronal 3D reconstructions were performed. FINDINGS: Contrast bolus timing for pulmonary artery opacification is suboptimal. Despite this, the re are multiple large filling defects seen in right upper and lower lobe pulmonary arteries, compatib le with PE. Smaller filling defects are likely present on the left side, especially in the left lowe r lobe. No hilar or mediastinal lymphadenopathy is present. Bibasilar atelectasis is present. No e ffusion or pneumothorax is present. Osseous structures demonstrate degenerative changes. IMPRESSION: WIDESPREAD FILLING DEFECTS, COMPATIBLE WITH PULMONARY EMBOLI. CRITICAL RESULT: Results and inadvertent contrast administration discussed with Dr. Garcia on 2016 at 1:30 p.m. JOB #: [id number] EXT JOB #:
[2017-05-14] MEDS: OMEGA-3 ACID ETHYL ESTERS 1 GM CAPSULE PO SCH (10:09)
[2017-05-14] MEDS: TAMSULOSIN 0.4 MG CAPSULE PO SCH (10:09)
[2017-05-14] MEDS: DOCUSATE SODIUM 250 MG CAPSULE PO SCH (10:09)
[2017-05-14] MEDS: THYROID 60 MG TABLET PO SCH (10:10)
[2017-05-14] MEDS: POLYETHYLENE GLYCOL 3350 17 GM PACKET PO SCH (10:10)
--- NOTE | 2017-05-14 10:53 | PROVIDER PROGRESS NOTE ---
Subjective - General Admit Date: 05/13/17 Procedure Date: 04/28/17 Post Op Days: 16 - Review of Systems Wound/Incisions: positive: Healing well HEENT: positive: No symptoms Musculoskeletal: positive: Joint pain All Other Systems: positive: Reviewed and negative Objective - Patient Data Reviewed Vital Signs: Yes Vital Signs: Vital Signs x48h Temp Pulse Resp BP BP Pulse Ox 05/14/17 07:43 36.6 C 83 17 128/63 95 05/14/17 04:34 36.8 C 82 20 138/69 H 92 Weight: Weight 05/12/17 05/13/17 05/14/17 23:59 23:59 23:59 Weight (kg) 95.254 kg Intake & Output: Intake and Output Totals x24h 05/12/17 05/13/17 05/14/17 23:59 23:59 23:59 Intake Total 1036 910 Output Total 4100 3600 Balance -3064 -9550 - Lab Results Lab Results: 05/14/17 05:15 05/14/17 05:15 Other Lab Results: Lab Results x24hrs 05/14/17 05/14/17 05/14/17 Range/Units 05:15 05:15 05:15 WBC (4.8-10.8) x10^3/uL RBC (4.70-6.10) 10^6/uL Hgb (14.0-18.0) g/dL Hct (42.0-52.0) % MCV (80.0-94.0) fL MCH (27.0-31.0) pg MCHC (32.0-36.0) g/dL RDW (12.0-15.0) % Plt Count (130-450) 10^3/uL MPV (7.4-11.4) fL Neut # (1.5-6.6) 10^3/uL Lymph # (1.5-3.5) 10^3/uL [place] # (0.0-1.0) 10^3/uL Eos # (0.0-0.7) 10^3/uL Baso # (0.0-0.1) 10^3/uL Absolute Nucleated RBC x10^3/uL Nucleated RBCs /100WBC Sodium 137 (135-145) mmol/L Potassium 4.4 (3.5-5.0) mmol/L Chloride 106 (101-111) mmol/L Carbon Dioxide 23 (21-32) mmol/L Anion Gap 8.0 (6-13) BUN 77 H (6-20) mg/dL Creatinine 3.2 H (0.6-1.2) mg/dL Estimated GFR (MDRD) 19 L (>89) Glucose 106 H (70-100) mg/dL Calcium 7.8 L (8.5-10.3) mg/dL Phosphorus 3.7 (2.5-4.6) mg/dL Magnesium 3.3 H (1.7-2.8) mg/dL Total Bilirubin 1.4 H (0.2-1.0) mg/dL AST 35 (10-42) IU/L ALT 33 (10-60) IU/L Alkaline Phosphatase 46 (42-121) IU/L Total Creatine Kinase 305 H (22-269) IU/L CK-MB (CK-2) (0.6-6.3) ng/mL Troponin I (<0.49) ng/mL Total Protein 6.4 L (6.7-8.2) g/dL Albumin 3.1 L (3.2-5.5) g/dL Globulin 3.3 (2.1-4.2) g/dL Albumin/Globulin Ratio 0.9 L (1.0-2.2) TSH (0.34-5.60) uIU/mL Free T4 (0.58-1.64) ng/dL Free T3 pg/mL (2.5-3.9) pg/mL Total Testosterone (350-720) ng/dL 05/14/17 05/13/17 05/13/17 Range/Units 05:15 22:45 22:45 WBC 11.4 H (4.8-10.8) x10^3/uL RBC 4.37 L (4.70-6.10) 10^6/uL Hgb 12.7 L (14.0-18.0) g/dL Hct 38.2 L (42.0-52.0) % MCV 87.3 (80.0-94.0) fL MCH 29.1 (27.0-31.0) pg MCHC 33.3 (32.0-36.0) g/dL RDW 13.9 (12.0-15.0) % Plt Count 365 (130-450) 10^3/uL MPV 8.3 (7.4-11.4) fL Neut # 9.0 H (1.5-6.6) 10^3/uL Lymph # 1.0 L (1.5-3.5) 10^3/uL [place] # 0.8 (0.0-1.0) 10^3/uL Eos # 0.5 (0.0-0.7) 10^3/uL Baso # 0.1 (0.0-0.1) 10^3/uL Absolute Nucleated RBC 0.00 x10^3/uL Nucleated RBCs 0.0 /100WBC Sodium (135-145) mmol/L Potassium (3.5-5.0) mmol/L Chloride (101-111) mmol/L Carbon Dioxide (21-32) mmol/L Anion Gap (6-13) BUN (6-20) mg/dL Creatinine (0.6-1.2) mg/dL Estimated GFR (MDRD) (>89) Glucose (70-100) mg/dL Calcium (8.5-10.3) mg/dL Phosphorus (2.5-4.6) mg/dL Magnesium (1.7-2.8) mg/dL Total Bilirubin (0.2-1.0) mg/dL AST (10-42) IU/L ALT (10-60) IU/L Alkaline Phosphatase (42-121) IU/L Total Creatine Kinase 371 H (22-269) IU/L CK-MB (CK-2) 9.6 H (0.6-6.3) ng/mL Troponin I 0.07 (<0.49) ng/mL Total Protein (6.7-8.2) g/dL Albumin (3.2-5.5) g/dL Globulin (2.1-4.2) g/dL Albumin/Globulin Ratio (1.0-2.2) TSH (0.34-5.60) uIU/mL Free T4 (0.58-1.64) ng/dL Free T3 pg/mL (2.5-3.9) pg/mL Total Testosterone (350-720) ng/dL 05/13/17 05/13/17 05/13/17 Range/Units 16:55 16:55 16:55 WBC (4.8-10.8) x10^3/uL RBC (4.70-6.10) 10^6/uL Hgb (14.0-18.0) g/dL Hct (42.0-52.0) % MCV (80.0-94.0) fL MCH (27.0-31.0) pg MCHC (32.0-36.0) g/dL RDW (12.0-15.0) % Plt Count (130-450) 10^3/uL MPV (7.4-11.4) fL Neut # (1.5-6.6) 10^3/uL Lymph # (1.5-3.5) 10^3/uL [place] # (0.0-1.0) 10^3/uL Eos # (0.0-0.7) 10^3/uL Baso # (0.0-0.1) 10^3/uL Absolute Nucleated RBC x10^3/uL Nucleated RBCs /100WBC Sodium (135-145) mmol/L Potassium (3.5-5.0) mmol/L Chloride (101-111) mmol/L Carbon Dioxide (21-32) mmol/L Anion Gap (6-13) BUN (6-20) mg/dL Creatinine (0.6-1.2) mg/dL Estimated GFR (MDRD) (>89) Glucose (70-100) mg/dL Calcium (8.5-10.3) mg/dL Phosphorus (2.5-4.6) mg/dL Magnesium (1.7-2.8) mg/dL Total Bilirubin (0.2-1.0) mg/dL AST (10-42) IU/L ALT (10-60) IU/L Alkaline Phosphatase (42-121) IU/L Total Creatine Kinase (22-269) IU/L CK-MB (CK-2) 11.5 H (0.6-6.3) ng/mL Troponin I 0.09 (<0.49) ng/mL Total Protein (6.7-8.2) g/dL Albumin (3.2-5.5) g/dL Globulin (2.1-4.2) g/dL Albumin/Globulin Ratio (1.0-2.2) TSH 1.27 (0.34-5.60) uIU/mL Free T4 0.85 (0.58-1.64) ng/dL Free T3 pg/mL 2.71 (2.5-3.9) pg/mL Total Testosterone 271 L (350-720) ng/dL 05/13/17 05/13/17 Range/Units 16:55 16:55 WBC (4.8-10.8) x10^3/uL RBC (4.70-6.10) 10^6/uL Hgb (14.0-18.0) g/dL Hct (42.0-52.0) % MCV (80.0-94.0) fL MCH (27.0-31.0) pg MCHC (32.0-36.0) g/dL RDW (12.0-15.0) % Plt Count (130-450) 10^3/uL MPV (7.4-11.4) fL Neut # (1.5-6.6) 10^3/uL Lymph # (1.5-3.5) 10^3/uL [place] # (0.0-1.0) 10^3/uL Eos # (0.0-0.7) 10^3/uL Baso # (0.0-0.1) 10^3/uL Absolute Nucleated RBC x10^3/uL Nucleated RBCs /100WBC Sodium 128 L (135-145) mmol/L Potassium 4.2 (3.5-5.0) mmol/L Chloride 95 L (101-111) mmol/L Carbon Dioxide 20 L (21-32) mmol/L Anion Gap 13.0 (6-13) BUN 113 H* (6-20) mg/dL Creatinine 7.3 H* (0.6-1.2) mg/dL Estimated GFR (MDRD) 8 L (>89) Glucose 168 H (70-100) mg/dL Calcium 7.5 L (8.5-10.3) mg/dL Phosphorus 6.5 H (2.5-4.6) mg/dL Magnesium 3.6 H (1.7-2.8) mg/dL Total Bilirubin 1.0 (0.2-1.0) mg/dL AST 33 (10-42) IU/L ALT 33 (10-60) IU/L Alkaline Phosphatase 44 (42-121) IU/L Total Creatine Kinase 387 H (22-269) IU/L CK-MB (CK-2) (0.6-6.3) ng/mL Troponin I (<0.49) ng/mL Total Protein 6.5 L (6.7-8.2) g/dL Albumin 3.2 (3.2-5.5) g/dL Globulin 3.3 (2.1-4.2) g/dL Albumin/Globulin Ratio 1.0 (1.0-2.2) TSH (0.34-5.60) uIU/mL Free T4 (0.58-1.64) ng/dL Free T3 pg/mL (2.5-3.9) pg/mL Total Testosterone (350-720) ng/dL - Current Medications Current Medications: Current Medications Generic Name Dose Route Start Last Admin Trade Name Fre PRN Reason Stop Dose Admin Bisacodyl 10 mg 05/13/17 19:15 05/13/17 20:33 Dulcolax Supp CO 10 mg DAILY PRN Administration Constipation Docusate Sodium 250 - 500 mg 05/14/17 09:00 05/14/17 10:09 Colace 250mg Capsule PO 250 mg DAILY RASHAUN Administration Enoxaparin Sodium 100 mg 05/14/17 09:00 05/14/17 10:09 Lovenox SUBQ 100 mg DAILY RASHAUN Administration Gabapentin 300 mg 05/13/17 21:00 05/13/17 20:25 Neurontin PO 300 mg QPM RASHAUN Administration Hydromorphone HCl 1 mg 05/13/17 19:16 05/13/17 23:46 Dilaudid Inj IVP 1 mg Q2HR PRN Administration PAIN Sodium Chloride 1,000 mls @ 100 mls/hr 05/13/17 16:00 05/14/17 05:47 Normal Saline 0.9% IV 100 mls/hr .Q10H RASHAUN Administration Dembe-3-Hliu Ethyl Esters 1 gm 05/14/17 09:00 05/14/17 10:09 Lovaza PO 1 gm DAILY RASHAUN Administration Pantoprazole Sodium 40 mg 05/13/17 16:00 05/14/17 05:43 Protonix PO 40 mg QDAC RASHAUN Administration Polyethylene Glycol 17 gm 05/14/17 09:00 05/14/17 10:10 Miralax PO 17 gm DAILY RASHAUN Administration Senna 8.6 - 17.2 mg 05/14/17 06:00 05/14/17 05:43 Senokot PO 8.6 mg TID RASHAUN Administration Sodium Chloride 10 ml 05/13/17 22:00 05/14/17 05:38 Normal Saline Flush 0.9% IVP Not Given Q8HR RASHAUN Tamsulosin HCl 0.4 mg 05/13/17 19:19 05/14/17 10:09 Flomax PO 0.4 mg DAILY RASHAUN Administration Thyroid 30 mg 05/14/17 09:00 05/14/17 10:10 [place] Thyroid PO 30 mg DAILY RASHAUN Administration - Physical Exam Wound/Incisions: positive: Healing well General Appearance: positive: No acute distress Abdomen: positive: Nml bowel sounds Extremities: positive: Joint swelling Neurologic/Psychiatric: positive: Motor nml, Sensation nml, Mood/affect nml Impression/Plan - Problem List Problem List: Pt is doing well in regards to the TKA His general condition is improving and he is much more comfortable. Abdominal pain is resolving.
[2017-05-14] MEDS ORDERED: ACETAMINOPHEN 325 MG TABLET PO PRN (11:21)
[2017-05-14] MEDS ORDERED: MAGNESIUM CITRATE 296 ML BOTTLE PO PRN (13:31)
[2017-05-14] MEDS: traMADol 50 MG TABLET PO PRN ×3 (13:35→23:52)
[2017-05-14] MEDS: ENOXAPARIN 100 MG/ML SYRINGE SUBQ SCH (21:39)
[2017-05-14] MEDS: GABAPENTIN 300 MG CAPSULE PO SCH (21:39)
[2017-05-14] MEDS ORDERED: ZOLPIDEM 5 MG TABLET PO PRN (22:50)
[2017-05-14] MEDS: ZOLPIDEM 5 MG TABLET PO PRN (23:52)
[2017-05-14] MEDS: PRAZOSIN 1 MG CAPSULE PO SCH (23:53)
[2017-05-15] MEDS: SODIUM CHLORIDE 0.9% 1,000 ML IV SCH ×5 (03:10→23:43)
[2017-05-15] MEDS: SODIUM CHLORIDE FLUSH 0.9% 10 ML SYRINGE IVP SCH ×3 (05:08→21:37)
[2017-05-15 05:53] LABS: BASOPHILS # (AUTO) 0.1 10^3/uL (0.0-0.1); BASOPHILS % (AUTO) 1.1 %; EOSINOPHILS # (AUTO) 0.6 10^3/uL (0.0-0.7); EOSINOPHILS % (AUTO) 7.4 %; LYMPHOCYTES # (AUTO) 1.4 10^3/uL (1.5-3.5); LYMPHOCYTES % (AUTO) 17.6 %; MEAN CORPUSCULAR HGB CONC 34.3 g/dL (32.0-36.0); MEAN CORPUSCULAR VOLUME 87.3 fL (80.0-94.0); MEAN PLATELET VOLUME 8.3 fL (7.4-11.4); MONOCYTES # (AUTO) 0.8 10^3/uL (0.0-1.0); MONOCYTES % (AUTO) 9.7 %; NEUTROPHILS # (AUTO) 5.2 10^3/uL (1.5-6.6); NEUTROPHILS % (AUTO) 64.2 %; RED BLOOD COUNT 4.01 10^6/uL (4.70-6.10); RED CELL DISTRIBUTION WIDTH 13.6 % (12.0-15.0); UNCORRECTED WHITE BLOOD COUNT 8.2 x10^3/uL; WHITE BLOOD COUNT 8.2 x10^3/uL (4.8-10.8)
[2017-05-15] MEDS: PANTOPRAZOLE 40 MG TABLET PO SCH (05:56)
[2017-05-15] MEDS: SENNA 8.6 MG TABLET PO SCH ×3 (05:56→21:36)
[2017-05-15] MEDS ORDERED: SENNA 8.6 MG TABLET PO SCH (06:00)
[2017-05-15 06:05] LABS: ALBUMIN/GLOBULIN RATIO 0.9 (1.0-2.2); CALCIUM 7.7 mg/dL (8.5-10.3); CREATININE 1.3 mg/dL (0.6-1.2); MAGNESIUM 2.5 mg/dL (1.7-2.8); PHOSPHORUS 2.7 mg/dL (2.5-4.6); POTASSIUM 4.5 mmol/L (3.5-5.0); TOTAL PROTEIN 5.7 g/dL (6.7-8.2)
--- NOTE | 2017-05-15 08:49 | PROVIDER PROGRESS NOTE ---
Subjective - General Admit Date: 05/13/17 Procedure Date: 04/28/17 Post Op Days: 17 - Review of Systems Wound/Incisions: positive: Healing well General: positive: Fatigue Musculoskeletal: positive: Joint pain All Other Systems: positive: Reviewed and negative Objective - Patient Data Reviewed Vital Signs: Yes Vital Signs: Vital Signs x48h Temp Pulse Resp BP Pulse Ox 05/15/17 08:22 35.9 C L 83 18 137/66 H 94 05/15/17 05:08 36.8 C 81 18 117/51 L 95 Weight: Weight 05/13/17 05/14/17 05/15/17 23:59 23:59 23:59 Weight (kg) 95.254 kg Intake & Output: Intake and Output Totals x24h 05/13/17 05/14/17 05/15/17 23:59 23:59 23:59 Intake Total 1036 3954 1527 Output Total 4105 5463 1450 Balance -3064 -1521 77 - Lab Results Lab Results: 05/15/17 05:13 05/15/17 05:13 Other Lab Results: Lab Results x24hrs 05/15/17 05/15/17 05/14/17 Range/Units 05:13 05:13 05:15 WBC 8.2 (4.8-10.8) x10^3/uL RBC 4.01 L (4.70-6.10) 10^6/uL Hgb 12.0 L (14.0-18.0) g/dL Hct 35.0 L (42.0-52.0) % MCV 87.3 (80.0-94.0) fL MCH 30.0 (27.0-31.0) pg MCHC 34.3 (32.0-36.0) g/dL RDW 13.6 (12.0-15.0) % Plt Count 405 (130-450) 10^3/uL MPV 8.3 (7.4-11.4) fL Neut # 5.2 (1.5-6.6) 10^3/uL Lymph # 1.4 L (1.5-3.5) 10^3/uL [place] # 0.8 (0.0-1.0) 10^3/uL Eos # 0.6 (0.0-0.7) 10^3/uL Baso # 0.1 (0.0-0.1) 10^3/uL Absolute Nucleated RBC 0.00 x10^3/uL Nucleated RBCs 0.0 /100WBC Sodium 140 (135-145) mmol/L Potassium 4.5 (3.5-5.0) mmol/L Chloride 107 (101-111) mmol/L Carbon Dioxide 25 (21-32) mmol/L Anion Gap 8.0 (6-13) BUN 38 H (6-20) mg/dL Creatinine 1.3 H (0.6-1.2) mg/dL Estimated GFR (MDRD) 55 L (>89) Glucose 100 (70-100) mg/dL Calcium 7.7 L (8.5-10.3) mg/dL Phosphorus 2.7 3.7 (2.5-4.6) mg/dL Magnesium 2.5 (1.7-2.8) mg/dL Total Bilirubin 1.0 (0.2-1.0) mg/dL AST 79 H (10-42) IU/L ALT 86 H (10-60) IU/L Alkaline Phosphatase 38 L (42-121) IU/L Total Creatine Kinase (22-269) IU/L Total Protein 5.7 L (6.7-8.2) g/dL Albumin 2.7 L (3.2-5.5) g/dL Globulin 3.0 (2.1-4.2) g/dL Albumin/Globulin Ratio 0.9 L (1.0-2.2) 05/14/17 Range/Units 05:15 WBC (4.8-10.8) x10^3/uL RBC (4.70-6.10) 10^6/uL Hgb (14.0-18.0) g/dL Hct (42.0-52.0) % MCV (80.0-94.0) fL MCH (27.0-31.0) pg MCHC (32.0-36.0) g/dL RDW (12.0-15.0) % Plt Count (130-450) 10^3/uL MPV (7.4-11.4) fL Neut # (1.5-6.6) 10^3/uL Lymph # (1.5-3.5) 10^3/uL [place] # (0.0-1.0) 10^3/uL Eos # (0.0-0.7) 10^3/uL Baso # (0.0-0.1) 10^3/uL Absolute Nucleated RBC x10^3/uL Nucleated RBCs /100WBC Sodium (135-145) mmol/L Potassium (3.5-5.0) mmol/L Chloride (101-111) mmol/L Carbon Dioxide (21-32) mmol/L Anion Gap (6-13) BUN (6-20) mg/dL Creatinine (0.6-1.2) mg/dL Estimated GFR (MDRD) (>89) Glucose (70-100) mg/dL Calcium (8.5-10.3) mg/dL Phosphorus (2.5-4.6) mg/dL Magnesium 3.3 H (1.7-2.8) mg/dL Total Bilirubin (0.2-1.0) mg/dL AST (10-42) IU/L ALT (10-60) IU/L Alkaline Phosphatase (42-121) IU/L Total Creatine Kinase 305 H (22-269) IU/L Total Protein (6.7-8.2) g/dL Albumin (3.2-5.5) g/dL Globulin (2.1-4.2) g/dL Albumin/Globulin Ratio (1.0-2.2) - Current Medications Current Medications: Current Medications Generic Name Dose Route Start Last Admin Trade Name Freq PRN Reason Stop Dose Admin Acetaminophen 650 mg 05/14/17 11:21 05/14/17 20:27 Tylenol PO 650 mg Q4HR PRN Administration Pain or Fever > 38C (100.4F) Bisacodyl 10 mg 05/13/17 19:15 05/13/17 20:33 Dulcolax Supp [place] 10 mg DAILY PRN Administration Constipation Docusate Sodium 250 - 500 mg 05/14/17 09:00 05/14/17 10:09 Colace 250mg Capsule PO 250 mg DAILY RASHAUN Administration Enoxaparin Sodium 100 mg 05/14/17 21:00 05/14/17 21:39 Lovenox SUBQ 100 mg BID RASHAUN Administration Gabapentin 300 mg 05/13/17 21:00 05/14/17 21:39 Neurontin PO 300 mg QPM RASHAUN Administration Sodium Chloride 1,000 mls @ 200 mls/hr 05/14/17 11:23 05/15/17 03:10 Normal Saline 0.9% IV 200 mls/hr .Q5H RASHAUN Administration Lorazepam 1 mg 05/14/17 06:58 05/14/17 20:27 Ativan Inj IVP 1 mg Q2H PRN Administration Anxiety Zkhyy-6-Vfmc Ethyl Esters 1 gm 05/14/17 09:00 05/14/17 10:09 Lovaza PO 1 gm DAILY RASHAUN Administration Pantoprazole Sodium 40 mg 05/13/17 16:00 05/15/17 05:56 Protonix PO 40 mg QDAC RASHAUN Administration Polyethylene Glycol 17 gm 05/14/17 09:00 05/14/17 10:10 Miralax PO 17 gm DAILY RASHAUN Administration Prazosin HCl 5 mg 05/14/17 23:34 05/14/17 23:53 Minipress PO 5 mg DAILY RASHAUN Administration Senna 8.6 - 17.2 mg 05/14/17 06:00 05/15/17 05:56 Senokot PO 8.6 mg TID RASHAUN Administration Sodium Chloride 10 ml 05/13/17 22:00 05/15/17 05:08 Normal Saline Flush 0.9% IVP Not Given Q8HR RASHAUN Tamsulosin HCl 0.4 mg 05/13/17 19:19 05/14/17 10:09 Flomax PO 0.4 mg DAILY RASHAUN Administration Thyroid 30 mg 05/14/17 09:00 05/14/17 10:10 [place] Thyroid PO 30 mg DAILY RASHAUN Administration Tramadol HCl 50 mg 05/14/17 11:22 05/14/17 23:52 Ultram PO 50 mg Q4HR PRN Administration PAIN Zolpidem Tartrate 2.5 mg 05/14/17 22:50 05/14/17 23:52 Ambien PO 2.5 mg HS PRN Administration Restlessness - Physical Exam Wound/Incisions: positive: Healing well General Appearance: positive: No acute distress Extremities: positive: Joint swelling Neurologic/Psychiatric: positive: Motor nml, Sensation nml, Mood/affect nml Impression/Plan - Problem List Problem List: Pt is progressing and improving to resume ambulation and PT for left TKA. To have office F/u within one week of discharge.
[2017-05-15] MEDS ORDERED: PRAZOSIN 1 MG CAPSULE PO SCH (09:00)
[2017-05-15] MEDS: PRAZOSIN 1 MG CAPSULE PO SCH ×2 (09:15→21:36)
[2017-05-15] MEDS: TAMSULOSIN 0.4 MG CAPSULE PO SCH ×2 (09:15→21:36)
[2017-05-15] MEDS: OMEGA-3 ACID ETHYL ESTERS 1 GM CAPSULE PO SCH (09:15)
[2017-05-15] MEDS: ENOXAPARIN 100 MG/ML SYRINGE SUBQ SCH ×2 (09:15→21:36)
[2017-05-15] MEDS: THYROID 60 MG TABLET PO SCH (09:15)
[2017-05-15] MEDS: DOCUSATE SODIUM 250 MG CAPSULE PO SCH (09:15)
[2017-05-15] MEDS: ASPIRIN EC 81 MG TABLET PO SCH (09:15)
[2017-05-15] MEDS: POLYETHYLENE GLYCOL 3350 17 GM PACKET PO SCH (09:16)
[2017-05-15] MEDS ORDERED: IOPAMIDOL-300 50 ML VIAL ONE (10:01)
--- NOTE | 2017-05-15 12:35 | CT Report ---
CT ABDOMEN AND PELVIS WITHOUT CONTRAST: 05/15/2017 CLINICAL INDICATION: Followup ileus. COMPARISON: 05/13/2017 TECHNIQUE: Axial CT images of the abdomen and pelvis were obtained with oral contrast only. In accordance with CT protocol optimization, one or more of the following dose reduction techniques w ere utilized for this exam: automated exposure control, adjustment of mA and/or KV based on patient size, or use of iterative reconstructive technique. FINDINGS: Limited evaluation of the lung bases demonstrates bibasilar atelectasis. Abdomen: Allowing for the lack of intravenous contrast enhancement, the liver, spleen, pancreas, and adrenal glands appear unremarkable. Cholelithiasis is again noted. Right hydronephrosis is improvi ng. The left hydronephrosis and perinephric stranding persist. Trace ascites is again noted. No ab dominal adenopathy or free gas is seen. Pelvis: Distention of the urinary bladder has decreased. The left ureter remains mildly dilated to the bladder base. No free fluid or pelvic adenopathy is seen. Osseous structures demonstrate degenerative changes. IMPRESSION: INTERVAL DECREASE IN PROMINENCE OF THE COLON. NO EVIDENCE OF SMALL BOWEL OBSTRUCTION. DECREASE IN URINARY BLADDER DISTENTION. IMPROVING RIGHT HYDRONEPHROSIS. PERSISTENT LEFT HYDRONEPHRO SIS WITH PERINEPHRIC STRANDING, SUGGESTIVE OF PYELONEPHRITIS. JOB #: [id number] EXT JOB #:[id number]
--- NOTE | 2017-05-15 12:35 | Ultrasound Report ---
BLADDER ULTRASOUND: 05/15/2017 CLINICAL INDICATION: Bladder outlet obstruction. TECHNIQUE: Real-time scanning was performed with [employer] representative static images obtained. FINDINGS: Prevoid, the bladder measures 10.2 x 7.6 x 7.5 cm, yielding a volume of 306 mL. Bilateral ureteral jets are visualized. No focal bladder wall mass is appreciated. The patient was unable to void at this volume. IMPRESSION: UNREMARKABLE BLADDER ULTRASOUND. PATIENT WAS UNABLE TO VOID AT 306 ML VOLUME. JOB #: [id number] EXT JOB #:[id number]
[2017-05-15] MEDS: traMADol 50 MG TABLET PO PRN ×2 (13:05→21:41)
--- NOTE | 2017-05-15 14:43 | PROVIDER PROGRESS NOTE ---
Subjective - Prog Note Date Prog Note Date: 05/15/17 Prog Note Time: 14:41 - Subjective Pt reports feeling: Improved Subjective: Patient states he is feeling better and his creatinine is improving. he is up and ambulating to the restroom.He had a large bowel movement last night. His abdomen is not as distended and he has no nausea or vomiting. no chest pain or shortness of breath Current Medications - Current Medications Current Medications: Active Medications Generic Name Dose Route Start Last Admin Trade Name Freq PRN Reason Stop Dose Admin Acetaminophen 650 mg 05/14/17 11:21 05/14/17 20:27 Tylenol PO 650 mg Q4HR PRN Administration Pain or Fever > 38C (100.4F) Aspirin 81 mg 05/15/17 09:00 05/16/17 08:31 Ecotrin PO 81 mg DAILY RASHAUN Administration Bisacodyl 10 mg 05/13/17 19:15 05/13/17 20:33 Dulcolax Supp [place] 10 mg DAILY PRN Administration Constipation Docusate Sodium 250 - 500 mg 05/14/17 09:00 05/16/17 08:30 Colace 250mg Capsule PO Not Given DAILY RASHAUN Gabapentin 300 mg 05/13/17 21:00 05/15/17 21:36 Neurontin PO 300 mg QPM RASHAUN Administration Ketorolac Tromethamine 30 mg 05/15/17 16:49 05/16/17 18:02 Toradol Inj IVP 05/20/17 16:48 30 mg Q6HR PRN Administration PAIN Lisinopril 10 mg 05/16/17 16:59 05/16/17 18:02 Zestril PO 05/16/17 23:59 10 mg ONCE RASHAUN Administration Lorazepam 1 mg 05/14/17 06:58 05/14/17 20:27 Ativan Inj IVP 1 mg Q2H PRN Administration Anxiety Regkf-1-Jnbx Ethyl Esters 1 gm 05/14/17 09:00 05/16/17 08:31 Lovaza PO 1 gm DAILY RASHAUN Administration Ondansetron HCl 4 mg 05/13/17 15:03 Zofran Odt TL Q6HR PRN Nausea / Vomiting Pantoprazole Sodium 40 mg 05/13/17 16:00 05/16/17 06:24 Protonix PO 40 mg QDAC RASHAUN Administration Polyethylene Glycol 17 gm 05/14/17 09:00 05/16/17 08:30 Miralax PO Not Given DAILY RASHAUN Prazosin HCl 5 mg 05/15/17 21:00 05/15/17 21:36 Minipress PO 5 mg 2100 RASHAUN Administration Rivaroxaban 15 mg 05/16/17 17:00 05/16/17 17:24 Xarelto PO 15 mg BID RASHAUN Administration Senna 8.6 - 17.2 mg 05/14/17 06:00 05/16/17 13:28 Senokot PO Not Given TID RASHAUN Sodium Chloride 10 ml 05/13/17 15:03 05/16/17 18:02 Normal Saline Flush 0.9% IVP 10 ml PRN PRN Administration NEEDED PER PROVIDER ORDERS Sodium Chloride 10 ml 05/13/17 22:00 05/16/17 18:02 Normal Saline Flush 0.9% IVP 10 ml Q8HR RASHAUN Administration Tamsulosin HCl 0.4 mg 05/15/17 21:00 05/16/17 08:31 Flomax PO 0.4 mg BID RASHAUN Administration Thyroid 30 mg 05/14/17 09:00 05/16/17 08:31 [place] Thyroid PO 30 mg DAILY RASHAUN Administration Tramadol HCl 50 mg 05/14/17 11:22 05/15/17 21:41 Ultram PO 50 mg Q4HR PRN Administration PAIN Zolpidem Tartrate 2.5 mg 05/14/17 22:50 05/14/17 23:52 Ambien PO 2.5 mg HS PRN Administration Restlessness Cetirizine HCl [Zyrtec] 5 mg PO DAILY PRN 09/07/14 Lisinopril 20 mg PO DAILY 08/07/15 Thyroid,Pork [[place] Thyroid] 30 mg PO DAILY 08/07/15 Prazosin HCl 5 mg PO DAILY 04/20/17 Zolpidem [Ambien] 2.5 mg PO HS PRN 04/20/17 Aspirin [Aspir-Low] 81 mg PO DAILY 05/13/17 Celecoxib [Celecoxib] 200 mg PO DAILY 05/13/17 Testosterone Cypionate [Depo-Testosterone] 200 mg IM UD 05/13/17 Objective - Vital Signs/Intake & Output Vital Signs: Vital Signs x48h Temp Pulse Resp BP Pulse Ox 05/15/17 13:02 36.7 C 65 18 123/52 L 93 05/15/17 08:22 35.9 C L 83 18 137/66 H 94 Intake & Output: Intake & Output 05/12/17 05/13/17 05/14/17 05/15/17 23:59 23:59 23:59 23:59 Intake Total 1036 3954 1927 Output Total 1631 4158 2500 Balance -3064 -1521 -573 - Objective General Appearance: positive: No acute distress, Alert Eyes Bilateral: positive: Normal inspection, PERRL, EOMI ENT: positive: ENT inspection nml, Pharynx nml, No signs of dehydration Neck: positive: Nml inspection, Thyroid nml, No JVD, Trachea midline Respiratory: positive: Chest non-tender, No respiratory distress, Breath sounds nml Cardiovascular: positive: Regular rate & rhythm, No murmur, No gallop Abdomen: positive: No organomegaly, Tenderness (pelvic region but improving). negative: Guarding, Rebound Rectal: positive: Stool - heme NEG Back: positive: Nml inspection. negative: CVA tenderness (R), CVA tenderness (L ) Skin: positive: Color nml, No rash, Warm, Dry Extremities: positive: Non-tender, Full ROM, Nml appearance, No pedal edema, Other (healing incision to left knee) Neurologic/Psychiatric: positive: Oriented x3, CN's nml (2-12), Motor nml, Sensation nml, Mood/affect nml - Lab Results Fish Bones: 05/16/17 05:23 05/16/17 05:23 Other Labs: Lab Results x24hrs 05/15/17 05/15/17 Range/Units 05:13 05:13 WBC 8.2 (4.8-10.8) x10^3/uL RBC 4.01 L (4.70-6.10) 10^6/uL Hgb 12.0 L (14.0-18.0) g/dL Hct 35.0 L (42.0-52.0) % MCV 87.3 (80.0-94.0) fL MCH 30.0 (27.0-31.0) pg MCHC 34.3 (32.0-36.0) g/dL RDW 13.6 (12.0-15.0) % Plt Count 405 (130-450) 10^3/uL MPV 8.3 (7.4-11.4) fL Neut # 5.2 (1.5-6.6) 10^3/uL Lymph # 1.4 L (1.5-3.5) 10^3/uL [place] # 0.8 (0.0-1.0) 10^3/uL Eos # 0.6 (0.0-0.7) 10^3/uL Baso # 0.1 (0.0-0.1) 10^3/uL Absolute Nucleated RBC 0.00 x10^3/uL Nucleated RBCs 0.0 /100WBC Sodium 140 (135-145) mmol/L Potassium 4.5 (3.5-5.0) mmol/L Chloride 107 (101-111) mmol/L Carbon Dioxide 25 (21-32) mmol/L Anion Gap 8.0 (6-13) BUN 38 H (6-20) mg/dL Creatinine 1.3 H (0.6-1.2) mg/dL Estimated GFR (MDRD) 55 L (>89) Glucose 100 (70-100) mg/dL Calcium 7.7 L (8.5-10.3) mg/dL Phosphorus 2.7 (2.5-4.6) mg/dL Magnesium 2.5 (1.7-2.8) mg/dL Total Bilirubin 1.0 (0.2-1.0) mg/dL AST 79 H (10-42) IU/L ALT 86 H (10-60) IU/L Alkaline Phosphatase 38 L (42-121) IU/L Total Protein 5.7 L (6.7-8.2) g/dL Albumin 2.7 L (3.2-5.5) g/dL Globulin 3.0 (2.1-4.2) g/dL Albumin/Globulin Ratio 0.9 L (1.0-2.2) - Diagnostic Imaging Diagnostic Imaging Results: positive: Final report reviewed Assessment/Plan - Problem List (1) Sepsis with acute organ dysfunction Impression: acute and improving. continue with IV fluid hydration and with monitoring of kidney function and output. grijalva draining clear yellow urine. creatinine down to 1.3. tylenol for fever and continue on pain medications and add toradol since opiods were constipating him (2) Pulmonary embolism without acute cor pulmonale Impression: acute and improving. continue on Lovenox SQ BID injections and will transition tomorrow to Xarelto. continue on supplemental oxygen and RT treatments Qualifiers: Pulmonary embolism type: septic Chronicity: acute Qualified Code(s): I26.90 - Septic pulmonary embolism without acute cor pulmonale (3) Acute kidney injury (nontraumatic) Impression: improving. continue to monitor DAVINA with daily lab values. avoid nephrotixic meads and hold lisinopril daily. grijalva to gravity. (4) Urinary retention Impression: improving with grijalva. trial with removal of grijalva and patient was not able to void and was retaining over 900ml of urine on bladder scan. patient was in severe pain. replaced grijalva and patient pain decreased and he voided over a liter of urine. will retry tomorrow to remove grijalva (5) Hyperphosphatemia Impression: acute and related to the kidney failure. will monitor with daily labs. aggressive hydration IV (6) Hypermagnesemia Impression: acute. with kidney failure and will aggressively hydrate and recheck lab values daily (7) S/P left knee arthroscopy Impression: acute and will have physical therapy assess and Dr Cummings and Nate monitoring patient if needed
[2017-05-15] MEDS: KETOROLAC 30 MG/ML VIAL IVP PRN (19:50)
[2017-05-15] MEDS: GABAPENTIN 300 MG CAPSULE PO SCH (21:36)
[2017-05-16] MEDS: SODIUM CHLORIDE 0.9% 1,000 ML IV SCH ×2 (04:15→09:08)
[2017-05-16 05:50] LABS: BASOPHILS # (AUTO) 0.1 10^3/uL (0.0-0.1); BASOPHILS % (AUTO) 1.3 %; EOSINOPHILS # (AUTO) 0.7 10^3/uL (0.0-0.7); EOSINOPHILS % (AUTO) 9.4 %; HCT - HEMATOCRIT 36.9 % (42.0-52.0); HGB - HEMOGLOBIN 12.4 g/dL (14.0-18.0); LYMPHOCYTES # (AUTO) 1.6 10^3/uL (1.5-3.5); LYMPHOCYTES % (AUTO) 19.9 %; MEAN CORPUSCULAR HEMOGLOBIN 29.3 pg (27.0-31.0); MEAN CORPUSCULAR HGB CONC 33.6 g/dL (32.0-36.0); MEAN CORPUSCULAR VOLUME 87.3 fL (80.0-94.0); MONOCYTES # (AUTO) 0.9 10^3/uL (0.0-1.0); MONOCYTES % (AUTO) 10.9 %; NEUTROPHILS # (AUTO) 4.6 10^3/uL (1.5-6.6); NEUTROPHILS % (AUTO) 58.5 %; RED BLOOD COUNT 4.23 10^6/uL (4.70-6.10); RED CELL DISTRIBUTION WIDTH 13.5 % (12.0-15.0); UNCORRECTED WHITE BLOOD COUNT 7.9 x10^3/uL; WHITE BLOOD COUNT 7.9 x10^3/uL (4.8-10.8)
[2017-05-16 06:00] LABS: CALCIUM 7.8 mg/dL (8.5-10.3); CREATININE 1.2 mg/dL (0.6-1.2); POTASSIUM 5.2 mmol/L (3.5-5.0); TOTAL PROTEIN 5.5 g/dL (6.7-8.2)
[2017-05-16] MEDS: PANTOPRAZOLE 40 MG TABLET PO SCH (06:24)
[2017-05-16] MEDS: SENNA 8.6 MG TABLET PO SCH ×3 (06:25→20:58)
[2017-05-16] MEDS: SODIUM CHLORIDE FLUSH 0.9% 10 ML SYRINGE IVP SCH ×3 (06:29→18:02)
[2017-05-16] MEDS: DOCUSATE SODIUM 250 MG CAPSULE PO SCH (08:30)
[2017-05-16] MEDS: POLYETHYLENE GLYCOL 3350 17 GM PACKET PO SCH (08:30)
[2017-05-16] MEDS: THYROID 60 MG TABLET PO SCH (08:31)
[2017-05-16] MEDS: ASPIRIN EC 81 MG TABLET PO SCH (08:31)
[2017-05-16] MEDS: TAMSULOSIN 0.4 MG CAPSULE PO SCH ×2 (08:31→21:02)
[2017-05-16] MEDS: OMEGA-3 ACID ETHYL ESTERS 1 GM CAPSULE PO SCH (08:31)
[2017-05-16] MEDS: ENOXAPARIN 100 MG/ML SYRINGE SUBQ SCH (08:32)
--- NOTE | 2017-05-16 13:20 | PROVIDER PROGRESS NOTE ---
Subjective - Prog Note Date Prog Note Date: 05/16/17 Prog Note Time: 12:59 - Subjective Pt reports feeling: Improved Subjective: Patient states he did not sleep at all last night. He was up with the nursing staff taking vital signs and turning the lights on in the room. He states he has been walking around the room. He still has the grijalva and it is draining clear yellow urine. kidney function has improved. No chest pain or shortness of breath. He has family at the bedside. He has no nausea and has had a bowel movement this morning. constipation has resolved. Current Medications - Current Medications Current Medications: Active Medications Generic Name Dose Route Start Last Admin Trade Name Freq PRN Reason Stop Dose Admin Acetaminophen 650 mg 05/14/17 11:21 05/14/17 20:27 Tylenol PO 650 mg Q4HR PRN Administration Pain or Fever > 38C (100.4F) Aspirin 81 mg 05/15/17 09:00 05/16/17 08:31 Ecotrin PO 81 mg DAILY RASHAUN Administration Bisacodyl 10 mg 05/13/17 19:15 05/13/17 20:33 Dulcolax Supp [place] 10 mg DAILY PRN Administration Constipation Docusate Sodium 250 - 500 mg 05/14/17 09:00 05/16/17 08:30 Colace 250mg Capsule PO Not Given DAILY RASHAUN Gabapentin 300 mg 05/13/17 21:00 05/15/17 21:36 Neurontin PO 300 mg QPM RASHAUN Administration Sodium Chloride 1,000 mls @ 200 mls/hr 05/14/17 11:23 05/16/17 09:08 Normal Saline 0.9% IV 200 mls/hr .Q5H RASHAUN Administration Ketorolac Tromethamine 30 mg 05/15/17 16:49 05/15/17 19:50 Toradol Inj IVP 05/20/17 16:48 30 mg Q6HR PRN Administration PAIN Lorazepam 1 mg 05/14/17 06:58 05/14/17 20:27 Ativan Inj IVP 1 mg Q2H PRN Administration Anxiety Xaqgd-7-Wkyh Ethyl Esters 1 gm 05/14/17 09:00 05/16/17 08:31 Lovaza PO 1 gm DAILY RASHAUN Administration Ondansetron HCl 4 mg 05/13/17 15:03 Zofran Odt TL Q6HR PRN Nausea / Vomiting Pantoprazole Sodium 40 mg 05/13/17 16:00 05/16/17 06:24 Protonix PO 40 mg QDAC RASHAUN Administration Polyethylene Glycol 17 gm 05/14/17 09:00 05/16/17 08:30 Miralax PO Not Given DAILY RASHAUN Prazosin HCl 5 mg 05/15/17 21:00 05/15/17 21:36 Minipress PO 5 mg 2100 RASHAUN Administration Rivaroxaban 15 mg 05/16/17 17:00 Xarelto PO BID RASHAUN Senna 8.6 - 17.2 mg 05/14/17 06:00 05/16/17 06:25 Senokot PO 17.2 mg TID RASHAUN Administration Sodium Chloride 10 ml 05/13/17 15:03 Normal Saline Flush 0.9% IVP PRN PRN NEEDED PER PROVIDER ORDERS Sodium Chloride 10 ml 05/13/17 22:00 05/16/17 06:29 Normal Saline Flush 0.9% IVP Not Given Q8HR RASHAUN Tamsulosin HCl 0.4 mg 05/15/17 21:00 05/16/17 08:31 Flomax PO 0.4 mg BID RASHAUN Administration Thyroid 30 mg 05/14/17 09:00 05/16/17 08:31 [place] Thyroid PO 30 mg DAILY RASHAUN Administration Tramadol HCl 50 mg 05/14/17 11:22 05/15/17 21:41 Ultram PO 50 mg Q4HR PRN Administration PAIN Zolpidem Tartrate 2.5 mg 05/14/17 22:50 05/14/17 23:52 Ambien PO 2.5 mg HS PRN Administration Restlessness Cetirizine HCl [Zyrtec] 5 mg PO DAILY PRN 09/07/14 Lisinopril 20 mg PO DAILY 08/07/15 Thyroid,Pork [[place] Thyroid] 30 mg PO DAILY 08/07/15 Prazosin HCl 5 mg PO DAILY 04/20/17 Zolpidem [Ambien] 2.5 mg PO HS PRN 04/20/17 Aspirin [Aspir-Low] 81 mg PO DAILY 05/13/17 Celecoxib [Celecoxib] 200 mg PO DAILY 05/13/17 Testosterone Cypionate [Depo-Testosterone] 200 mg IM UD 05/13/17 Objective - Vital Signs/Intake & Output Reviewed Vital Signs: Yes Vital Signs: Vital Signs x48h Temp Pulse Resp BP Pulse Ox 05/16/17 12:06 36.9 C 66 20 144/72 H 98 05/16/17 07:46 36.7 C 65 22 143/80 H 95 05/16/17 05:15 36.9 C 70 16 128/70 93 Intake & Output: Intake & Output 05/13/17 05/14/17 05/15/17 05/16/17 23:59 23:59 23:59 23:59 Intake Total 1036 3954 3535 2500 Output Total 4100 5475 4300 975 Balance -3064 -1521 -765 1525 - Objective General Appearance: positive: No acute distress, Alert Eyes Bilateral: positive: Normal inspection, PERRL, EOMI ENT: positive: ENT inspection nml, Pharynx nml, No signs of dehydration Neck: positive: Nml inspection, Thyroid nml, No JVD, Trachea midline Respiratory: positive: Chest non-tender, No respiratory distress, Breath sounds nml Cardiovascular: positive: Regular rate & rhythm, No murmur, No gallop. negative : JVD present Abdomen: positive: Non-tender, No organomegaly, Nml bowel sounds, No distention , Tenderness (still in lower pelvic region). negative: Guarding, Rebound Back: positive: Nml inspection. negative: CVA tenderness (R), CVA tenderness (L ) Skin: positive: Color nml, No rash, Warm, Dry Extremities: positive: Non-tender, Full ROM, Nml appearance, Other (left knee still with healing incision after total knee surgery. mild erythema) Neurologic/Psychiatric: positive: Oriented x3, CN's nml (2-12), Motor nml, Sensation nml, Mood/affect nml - Lab Results Fish Bones: 05/16/17 05:23 05/16/17 05:23 Other Labs: Lab Results x24hrs 05/16/17 05/16/17 Range/Units 05:23 05:23 WBC 7.9 (4.8-10.8) x10^3/uL RBC 4.23 L (4.70-6.10) 10^6/uL Hgb 12.4 L (14.0-18.0) g/dL Hct 36.9 L (42.0-52.0) % MCV 87.3 (80.0-94.0) fL MCH 29.3 (27.0-31.0) pg MCHC 33.6 (32.0-36.0) g/dL RDW 13.5 (12.0-15.0) % Plt Count 356 (130-450) 10^3/uL MPV 8.0 (7.4-11.4) fL Neut # 4.6 (1.5-6.6) 10^3/uL Lymph # 1.6 (1.5-3.5) 10^3/uL [place] # 0.9 (0.0-1.0) 10^3/uL Eos # 0.7 (0.0-0.7) 10^3/uL Baso # 0.1 (0.0-0.1) 10^3/uL Absolute Nucleated RBC 0.00 x10^3/uL Nucleated RBCs 0.0 /100WBC Sodium 138 (135-145) mmol/L Potassium 5.2 H (3.5-5.0) mmol/L Chloride 109 (101-111) mmol/L Carbon Dioxide 24 (21-32) mmol/L Anion Gap 5.0 L (6-13) BUN 24 H (6-20) mg/dL Creatinine 1.2 (0.6-1.2) mg/dL Estimated GFR (MDRD) 60 L (>89) Glucose 92 (70-100) mg/dL Calcium 7.8 L (8.5-10.3) mg/dL Total Bilirubin 1.0 (0.2-1.0) mg/dL AST 49 H (10-42) IU/L ALT 73 H (10-60) IU/L Alkaline Phosphatase 38 L (42-121) IU/L Total Protein 5.5 L (6.7-8.2) g/dL Albumin 2.7 L (3.2-5.5) g/dL Globulin 2.8 (2.1-4.2) g/dL Albumin/Globulin Ratio 1.0 (1.0-2.2) - Diagnostic Imaging Diagnostic Imaging Results: positive: Prelim report reviewed Diagnostic Imaging Comments: Bladder ultrasound shows no bladder mass or obstruction. CT of abdomen pelvis shows no obstruction and improving left hydronephritis and no right sided hydronephritis. Assessment/Plan - Problem List (1) Sepsis with acute organ dysfunction Impression: resolved. continue to monitor white count that has now resolved from [id number]. patient is not febrile or tachycardic (2) Pulmonary embolism without acute cor pulmonale Impression: acute and improving. patient is still on Lovenox and will transition to Xarelto today evening. he will receive 15mg PO tonight and then twice a day for 21 days and then 20mg PO daily. kidney function improved with creatinine of 1.2 Qualifiers: Pulmonary embolism type: septic Chronicity: acute Qualified Code(s): I26.90 - Septic pulmonary embolism without acute cor pulmonale (3) Acute kidney injury (nontraumatic) Impression: resolved. patients kidney function has resolved and now in normal limits. patient still has a grijalva and will be pulled in the morning. He is up and ambulating with difficulty. will continue to monitor eith daily lab draws. (4) Urinary retention Impression: ongoing. patient was unable to void without grijalva but will try to take out tomorrow and try to void on own again. yellow clear urine in grijalva, no hematuria. continue with flomax and increased to 4mg BID (5) Hyperphosphatemia Impression: resolving and will continue to monitor daily labs (6) Hypermagnesemia Impression: resolving. and will monitor with daily lab draws.
[2017-05-16] MEDS ORDERED: LISINOPRIL 5 MG TABLET PO SCH (16:59)
[2017-05-16] MEDS ORDERED: RIVAROXABAN 15 MG TABLET PO SCH (17:00)
[2017-05-16] MEDS: RIVAROXABAN 15 MG TABLET PO SCH (17:24)
[2017-05-16] MEDS: KETOROLAC 30 MG/ML VIAL IVP PRN (18:02)
[2017-05-16] MEDS: GABAPENTIN 300 MG CAPSULE PO SCH (21:02)
[2017-05-16] MEDS: PRAZOSIN 1 MG CAPSULE PO SCH (21:03)
[2017-05-16] MEDS: ZOLPIDEM 5 MG TABLET PO PRN (21:11)
[2017-05-16] MEDS: traMADol 50 MG TABLET PO PRN (21:48)
[2017-05-17] MEDS: SENNA 8.6 MG TABLET PO SCH (06:45)
[2017-05-17] MEDS: SODIUM CHLORIDE FLUSH 0.9% 10 ML SYRINGE IVP SCH ×3 (07:44→21:31)
[2017-05-17] MEDS: PANTOPRAZOLE 40 MG TABLET PO SCH (07:45)
[2017-05-17 08:15] LABS: HGB - HEMOGLOBIN 12.8 g/dL (14.0-18.0); MONOCYTES % (AUTO) 9.2 %; RED CELL DISTRIBUTION WIDTH 13.5 % (12.0-15.0); UNCORRECTED WHITE BLOOD COUNT 8.5 x10^3/uL; WHITE BLOOD COUNT 8.5 x10^3/uL (4.8-10.8)
[2017-05-17 08:20] LABS: BASOPHILS % (AUTO) 0.8 %; EOSINOPHILS % (AUTO) 8.4 %; HCT - HEMATOCRIT 37.1 % (42.0-52.0); LYMPHOCYTES % (AUTO) 17.5 %; MEAN CORPUSCULAR HEMOGLOBIN 29.5 pg (27.0-31.0); MEAN CORPUSCULAR HGB CONC 34.4 g/dL (32.0-36.0); MEAN CORPUSCULAR VOLUME 85.8 fL (80.0-94.0); MEAN PLATELET VOLUME 7.8 fL (7.4-11.4); NEUTROPHILS % (AUTO) 64.1 %; RED BLOOD COUNT 4.33 10^6/uL (4.70-6.10)
[2017-05-17 08:28] LABS: ALBUMIN/GLOBULIN RATIO 0.9 (1.0-2.2); BILIRUBIN,TOTAL 0.9 mg/dL (0.2-1.0); CALCIUM 8.1 mg/dL (8.5-10.3); CREATININE 1.2 mg/dL (0.6-1.2); MAGNESIUM 1.7 mg/dL (1.7-2.8); POTASSIUM 4.5 mmol/L (3.5-5.0)
[2017-05-17 08:44] LABS: BAND NEUTROPHILS % (MANUAL) 1 %; BASOPHILS % (MANUAL) 1 %; EOSINOPHILS % (MANUAL) 8 %; LYMPHOCYTES % (MANUAL) 11 %; NEUTROPHILS % (MANUAL) 58 %; TOTAL CELLS COUNTED 100
[2017-05-17 08:45] LABS: NP AUTO DIFFERENTIAL? YES; NP MAN DIFFERENTIAL? NO
--- NOTE | 2017-05-17 08:58 | PROVIDER PROGRESS NOTE ---
Subjective - Prog Note Date Prog Note Date: 05/17/17 Prog Note Time: 08:44 - Subjective Pt reports feeling: Improved (t) Subjective: Patient seen at bedside for followup for kidney failure with obstruction. now resolving. He was upset for not sleeping well last night. patient was woken up several times by nursing. He states he is tired today. He has been ambulating in the hallway and will have grijalva out today again for trial of urination on his own. He has no fever or chills. He is moving well. He has mild pain to left knee but manageable. He has had a bowel movement yesterday and eating well. 1200- grijalva out and patient now has 650ml of urine and unable to void. gave bethanocol and put grijalva back in per patient wishes. Patient is reluctant to self cath himself. He is wanting to know if he can be discharged to urology in the morning. explained that he would have to go home with grijalva and then followup with urology as an outpatient. his urine has some blood tinged color and will have nursing flush catheter to avoid clotting. Current Medications - Current Medications Current Medications: Active Medications Generic Name Dose Route Start Last Admin Trade Name Freq PRN Reason Stop Dose Admin Acetaminophen 650 mg 05/14/17 11:21 05/14/17 20:27 Tylenol PO 650 mg Q4HR PRN Administration Pain or Fever > 38C (100.4F) Aspirin 81 mg 05/15/17 09:00 05/17/17 09:49 Ecotrin PO 81 mg DAILY RASHAUN Administration Bisacodyl 10 mg 05/13/17 19:15 05/13/17 20:33 Dulcolax Supp [place] 10 mg DAILY PRN Administration Constipation Docusate Sodium 250 - 500 mg 05/14/17 09:00 05/17/17 11:36 Colace 250mg Capsule PO Not Given DAILY RASHAUN Gabapentin 300 mg 05/13/17 21:00 05/16/17 21:02 Neurontin PO 300 mg QPM RASHAUN Administration Ketorolac Tromethamine 30 mg 05/15/17 16:49 05/16/17 18:02 Toradol Inj IVP 05/20/17 16:48 30 mg Q6HR PRN Administration PAIN Lorazepam 1 mg 05/14/17 06:58 05/14/17 20:27 Ativan Inj IVP 1 mg Q2H PRN Administration Anxiety Omqjj-[id number] Ethyl Esters 1 gm 05/14/17 09:00 05/17/17 09:49 Lovaza PO 1 gm DAILY RASHAUN Administration Ondansetron HCl 4 mg 05/13/17 15:03 Zofran Odt TL Q6HR PRN Nausea / Vomiting Pantoprazole Sodium 40 mg 05/13/17 16:00 05/17/17 07:45 Protonix PO Not Given QDAC RASHAUN Polyethylene Glycol 17 gm 05/14/17 09:00 05/17/17 11:36 Miralax PO Not Given DAILY RASHAUN Prazosin HCl 5 mg 05/15/17 21:00 05/16/17 21:03 Minipress PO 5 mg 2100 RASHAUN Administration Rivaroxaban 15 mg 05/16/17 17:00 05/17/17 09:51 Xarelto PO 15 mg BID RASHAUN Administration Sodium Chloride 10 ml 05/13/17 15:03 05/16/17 18:02 Normal Saline Flush 0.9% IVP 10 ml PRN PRN Administration NEEDED PER PROVIDER ORDERS Sodium Chloride 10 ml 05/13/17 22:00 05/17/17 07:44 Normal Saline Flush 0.9% IVP Not Given Q8HR RASHAUN Tamsulosin HCl 0.4 mg 05/15/17 21:00 05/17/17 09:49 Flomax PO 0.4 mg BID RASHAUN Administration Thyroid 30 mg 05/14/17 09:00 05/17/17 09:49 [place] Thyroid PO 30 mg DAILY RASHAUN Administration Tramadol HCl 50 mg 05/14/17 11:22 05/16/17 21:48 Ultram PO 50 mg Q4HR PRN Administration PAIN Zolpidem Tartrate 2.5 mg 05/14/17 22:50 05/16/17 21:11 Ambien PO 2.5 mg HS PRN Administration Restlessness Cetirizine HCl [Zyrtec] 5 mg PO DAILY PRN 09/07/14 Lisinopril 20 mg PO DAILY 08/07/15 Thyroid,Pork [[place] Thyroid] 30 mg PO DAILY 08/07/15 Prazosin HCl 5 mg PO DAILY 04/20/17 Zolpidem [Ambien] 2.5 mg PO HS PRN 04/20/17 Aspirin [Aspir-Low] 81 mg PO DAILY 05/13/17 Celecoxib [Celecoxib] 200 mg PO DAILY 05/13/17 Testosterone Cypionate [Depo-Testosterone] 200 mg IM UD 05/13/17 Objective - Vital Signs/Intake & Output Reviewed Vital Signs: Yes Vital Signs: Last Vital Signs Temp 36.7 C 05/17/17 09:02 Pulse 65 05/17/17 09:02 Resp 20 05/17/17 09:02 BP 150/70 H 05/17/17 09:02 Pulse Ox 95 05/17/17 09:02 Intake & Output: Intake & Output 05/14/17 05/15/17 05/16/17 05/17/17 23:59 23:59 23:59 23:59 Intake Total 3957 4686 5838 Output Total 2365 8289 5934 176 Balance -1521 -585 9283 900 - Objective General Appearance: positive: No acute distress, Alert Eyes Bilateral: positive: Normal inspection, PERRL ENT: positive: ENT inspection nml, Pharynx nml, No signs of dehydration Neck: positive: Nml inspection, Thyroid nml, No JVD, Trachea midline Respiratory: positive: Chest non-tender, No respiratory distress, Breath sounds nml Cardiovascular: positive: Regular rate & rhythm, No murmur, No gallop. negative : JVD present, Gallop/S4 Abdomen: positive: Non-tender, No organomegaly, Nml bowel sounds, No distention. negative: Guarding, Rebound Skin: positive: Color nml, No rash, Warm, Dry Extremities: positive: Non-tender, Full ROM, Nml appearance, No pedal edema Neurologic/Psychiatric: positive: Oriented x3, CN's nml (2-12), Motor nml, Sensation nml, Mood/affect nml (Pending discharge in the morning if patient can have grijalva out and urinating on his own.) - Lab Results Fish Bones: 05/17/17 07:56 05/17/17 07:56 Other Labs: Lab Results x24hrs 05/17/17 05/17/17 Range/Units 07:56 07:56 WBC 8.5 (4.8-10.8) x10^3/uL RBC 4.33 L (4.70-6.10) 10^6/uL Hgb 12.8 L (14.0-18.0) g/dL Hct 37.1 L (42.0-52.0) % MCV 85.8 (80.0-94.0) fL MCH 29.5 (27.0-31.0) pg MCHC 34.4 (32.0-36.0) g/dL RDW 13.5 (12.0-15.0) % Plt Count 371 (130-450) 10^3/uL MPV 7.8 (7.4-11.4) fL Manual Slide Review Indicated Sodium 136 (135-145) mmol/L Potassium 4.5 (3.5-5.0) mmol/L Chloride 106 (101-111) mmol/L Carbon Dioxide 24 (21-32) mmol/L Anion Gap 6.0 (6-13) BUN 18 (6-20) mg/dL Creatinine 1.2 (0.6-1.2) mg/dL Estimated GFR (MDRD) 60 L (>89) Glucose 98 (70-100) mg/dL Calcium 8.1 L (8.5-10.3) mg/dL Magnesium 1.7 (1.7-2.8) mg/dL Total Bilirubin 0.9 (0.2-1.0) mg/dL AST 63 H (10-42) IU/L ALT 90 H (10-60) IU/L Alkaline Phosphatase 40 L (42-121) IU/L Total Protein 6.0 L (6.7-8.2) g/dL Albumin 2.9 L (3.2-5.5) g/dL Globulin 3.1 (2.1-4.2) g/dL Albumin/Globulin Ratio 0.9 L (1.0-2.2) - Other Results/Comments Other Results/Comments: Time spent with patient was 40 minutes for planning and assessment Assessment/Plan - Problem List (1) Urinary retention Impression: ongoing. Grijalva taken out. increased flomax BID. walking in hallways. (2) Sepsis with acute organ dysfunction Impression: resolved. continue to monitor CBC with daily labs. patient has no fever. kidney function has improved. monitor output once grijalva is out. (3) Pulmonary embolism without acute cor pulmonale Impression: improving. patient was taken off Lovenox last night and transitioned to Xarelto BID. He is tolerating well. oxygen supplemental NC if needed Qualifiers: Pulmonary embolism type: septic Chronicity: acute Qualified Code(s): I26.90 - Septic pulmonary embolism without acute cor pulmonale (4) Acute kidney injury (nontraumatic) Impression: resolved. continue to monitor output and kidney function with daily labs. pending output with urination on his own. If not will have to replace grijalva at discharge with urology followup (5) Hyperphosphatemia Impression: resolved. (6) Hypermagnesemia Impression: resolved
[2017-05-17] MEDS: ASPIRIN EC 81 MG TABLET PO SCH (09:49)
[2017-05-17] MEDS: THYROID 60 MG TABLET PO SCH (09:49)
[2017-05-17] MEDS: OMEGA-3 ACID ETHYL ESTERS 1 GM CAPSULE PO SCH (09:49)
[2017-05-17] MEDS: TAMSULOSIN 0.4 MG CAPSULE PO SCH ×2 (09:49→21:31)
[2017-05-17] MEDS: RIVAROXABAN 15 MG TABLET PO SCH ×2 (09:51→21:30)
[2017-05-17] MEDS: DOCUSATE SODIUM 250 MG CAPSULE PO SCH (11:36)
[2017-05-17] MEDS: POLYETHYLENE GLYCOL 3350 17 GM PACKET PO SCH (11:36)
[2017-05-17] MEDS ORDERED: BETHANECHOL 10 MG TABLET PO SCH (15:00)
[2017-05-17] MEDS ORDERED: ALPRAZolam 0.25 MG TABLET PO PRN (15:16)
[2017-05-17] MEDS: traMADol 50 MG TABLET PO PRN ×2 (18:14→22:17)
[2017-05-17] MEDS: BETHANECHOL 10 MG TABLET PO SCH ×2 (18:14→21:30)
[2017-05-17] MEDS: PRAZOSIN 1 MG CAPSULE PO SCH (21:30)
[2017-05-17] MEDS: GABAPENTIN 300 MG CAPSULE PO SCH (21:31)
[2017-05-18] MEDS ORDERED: ZOLPIDEM 5 MG TABLET PO PRN (02:01)
[2017-05-18] MEDS: SODIUM CHLORIDE FLUSH 0.9% 10 ML SYRINGE IVP SCH (06:12)
[2017-05-18 07:32] VITALS: BP 152/77
[2017-05-18 07:54] LABS: ALBUMIN/GLOBULIN RATIO 0.9 (1.0-2.2); BILIRUBIN,TOTAL 0.9 mg/dL (0.2-1.0); CALCIUM 8.2 mg/dL (8.5-10.3); CREATININE 1.1 mg/dL (0.6-1.2); POTASSIUM 4.2 mmol/L (3.5-5.0); TOTAL PROTEIN 6.5 g/dL (6.7-8.2)
[2017-05-18 07:58] LABS: BASOPHILS # (AUTO) 0.1 10^3/uL (0.0-0.1); BASOPHILS % (AUTO) 0.9 %; EOSINOPHILS # (AUTO) 0.7 10^3/uL (0.0-0.7); EOSINOPHILS % (AUTO) 6.5 %; HCT - HEMATOCRIT 38.6 % (42.0-52.0); HGB - HEMOGLOBIN 13.1 g/dL (14.0-18.0); LYMPHOCYTES # (AUTO) 1.9 10^3/uL (1.5-3.5); LYMPHOCYTES % (AUTO) 16.3 %; MEAN CORPUSCULAR HEMOGLOBIN 29.2 pg (27.0-31.0); MEAN CORPUSCULAR HGB CONC 33.9 g/dL (32.0-36.0); MEAN CORPUSCULAR VOLUME 86.1 fL (80.0-94.0); MEAN PLATELET VOLUME 7.8 fL (7.4-11.4); MONOCYTES # (AUTO) 0.8 10^3/uL (0.0-1.0); MONOCYTES % (AUTO) 7.4 %; NEUTROPHILS # (AUTO) 7.9 10^3/uL (1.5-6.6); NEUTROPHILS % (AUTO) 68.9 %; RED BLOOD COUNT 4.49 10^6/uL (4.70-6.10); RED CELL DISTRIBUTION WIDTH 13.8 % (12.0-15.0); UNCORRECTED WHITE BLOOD COUNT 11.4 x10^3/uL; WHITE BLOOD COUNT 11.4 x10^3/uL (4.8-10.8)
[2017-05-18] MEDS ORDERED: cefTRIAXone 2 GM VIAL ONE (08:34)
[2017-05-18] MEDS ORDERED: SODIUM CHLORIDE FLUSH 0.9% 10 ML SYRINGE IVP ONE (08:36)
[2017-05-18] MEDS: cefTRIAXone 2 GM in SODIUM CHLORIDE 0.9% MINIBAG 100 ML IV SCH ×2 (08:39→10:09)
[2017-05-18 08:44] LABS: PLATELET ESTIMATE, MANUAL NORMAL (130-450,000) (NORMAL); PLATELET MORPHOLOGY NORMAL APPEARANCE (NORMAL); WBC MORPHOLOGY (MULTIPLE) 2+ REACTIVE LYMPHS (NORMAL)
[2017-05-18] MEDS: TAMSULOSIN 0.4 MG CAPSULE PO SCH (10:07)
[2017-05-18] MEDS: BETHANECHOL 10 MG TABLET PO SCH (10:07)
[2017-05-18] MEDS: POLYETHYLENE GLYCOL 3350 17 GM PACKET PO SCH (10:08)
[2017-05-18] MEDS: RIVAROXABAN 15 MG TABLET PO SCH (10:08)
[2017-05-18] MEDS: OMEGA-3 ACID ETHYL ESTERS 1 GM CAPSULE PO SCH (10:08)
[2017-05-18] MEDS: ASPIRIN EC 81 MG TABLET PO SCH (10:08)
[2017-05-18] MEDS: THYROID 60 MG TABLET PO SCH (10:09)
--- NOTE | 2017-05-18 10:54 | Discharge Plan ---
Discharge Plan Disposition: Home, Self Care Condition: Stable Prescriptions: traMADol [Ultram] 50 mg PO Q4HR PRN #30 tablet PRN Reason: Pain Tamsulosin [Flomax] 0.4 mg PO BID #20 capsule Rivaroxaban [Xarelto] 15 mg PO BID #40 tablet Diet: Cardiac Activity Restrictions: Activity as Tolerated Shower Restrictions: No Driving Restrictions: No Assistance Devices: Cane Weight Bearing: Full Weight Instruction Topics: Bethanechol tablets, Catheter Bag Urinary Empty Clean, ED Catheter Care Jones Additional Instructions or Follow Up instructions: PLEASE SEE THE UROLOGIST IN [facility] ON AT 12:45PM WITH [facility]- DR TOPETE [facility] (click on location for a map, directions and more information) [address] [place] [id number] Hours: Thursday - Thursday 8 a.m. - 5 p.m. BRING ANY DISCHARGE PAPERS YOU HAVE WITH YOU CONTINUE WITH JONES CARE AND DO NOT REMOVE UNTIL SEEN IN THE UROLOGY CLINIC. CONTINUE HOME MEDICATIONS THAT YOU HAVE BEEN TAKING WITH THE EXCEPTIONS ON THE DISCHARGE SUMMARY. YOU HAVE BEEN GIVEN PRESCRIPTION FOR FLOMAX AND FOR TRAMADOL FOR PAIN. DRINK PLENTY OF WATER AND MONITOR YOUR URINE OUTPUT. IF YOU SEE EXCESSIVE CLOTS OF BLOOD IN THE BAG RETURN TO THE ER FOR EVALUATION. IF YOU HAVE CHEST PAIN OR SHORTNESS OF BREATH, RETURN TO THE ER OR CALL 911. CONTINUE TO EAT A HEART HEALTHY DIET AND AVOID ALL ALCOHOL. YOU HAVE BEEN PUT ON XARELTO FOR THE BLOOD CLOTS IN THE LUNGS TAKE THE XARELTO PRESCRIBED AND YOU WILL NEED TO STAY ON IT TWICE A DAY FOR ANOTHER 20 DAYS. FINISH THE PRESCRIPTION. YOU WILL NEED TO SEE YOUR PRIMARY CARE PROVIDER FOR REFILL FOR THE NEXT MONTHS DOSAGE. YOU WILL THEN BE TAKING XARELTO 20MG INSTEAD AFTER THE FIRST 21 DAYS. YOU NEED TO MAKE SURE THE UROLOGIST IS AWARE YOU HAD A PULMONARY EMBOLISM AND ARE ON XARELTO PRIOR TO ANY PROCEDURES AND MONITOR FOR BLEEDING. IF YOU HAVE FURTHER QUESTIONS REGARDING YOUR APPOINTMENT TOMORROW CALL [phone] (HOSPITAL MEDICINE OFFICE) OR CALL YOUR PRIMARY CARE PROVIDER Follow-Up Care: Outpatient Rehab - PT (PLEASE CHANGE JONES TO LEGBAG PRIOR TO LEAVING. PRESCRIPTIONS IN OFFICE) No Smoking: If you smoke, Please STOP! Call for help. Follow-up with: Gilmar Morales, [Primary Care Provider] -
--- NOTE | 2017-05-18 11:14 | DISCHARGE SUMMARY ---
Discharge Summary Admit Date: 05/13/17 Discharge Date: 05/18/17 Discharging Provider: MITCH SEQUEIRA APRN Primary Care Provider: FIGUEROA MENDOZA Code Status: Attempt Resuscitation Condition at Discharge: Good Discharge Disposition: 01 Home, Self Care Discharge Facility Name: HOME - ALLERGIES Allergies/Adverse Reactions: Allergies Allergy/AdvReac Type Severity Reaction Status Date / Time amoxicillin trihydrate * AdvReac Unknown Verified 05/13/17 11:39 [From Augmentin] potassium clavulanate * AdvReac Unknown Verified 05/13/17 11:39 [From Augmentin] - MEDICATIONS Home Medications: Ambulatory Orders Medication Instructions Recorded Confirmed Lisinopril 20 mg PO DAILY 08/07/15 05/13/17 Thyroid,Pork [[place] Thyroid] 30 mg PO DAILY 08/07/15 05/13/17 Prazosin HCl 5 mg PO DAILY 04/20/17 05/13/17 Zolpidem [Ambien] 2.5 mg PO HS PRN 04/20/17 05/13/17 Acetaminophen [Tylenol] 650 - 975 mg PO Q4HR PRN #0 tablet 05/01/17 05/13/17 [place]-3 Acid Ethyl Esters [Lovaza] 1 gm PO DAILY capsule 05/01/17 05/13/17 Lorazepam [Ativan] 1 mg PO TID PRN #5 tablet 05/09/17 05/13/17 Aspirin [Aspir-Low] 81 mg PO DAILY 05/13/17 05/13/17 Testosterone Cypionate 200 mg IM UD 05/13/17 05/13/17 [Depo-Testosterone] Rivaroxaban [Xarelto] 15 mg PO BID #40 tablet 05/18/17 Tamsulosin [Flomax] 0.4 mg PO BID #20 capsule 05/18/17 traMADol [Ultram] 50 mg PO Q4HR PRN #30 tablet 05/18/17 - PHYSICAL EXAM AT DISCHARGE General Appearance: positive: No acute distress, Alert Eyes Bilateral: positive: Normal inspection, PERRL, No lid inflammation ENT: positive: ENT inspection nml, Pharynx nml, No signs of dehydration Neck: positive: Nml inspection, Thyroid nml, No JVD, Trachea midline Respiratory: positive: Chest non-tender, No respiratory distress, Breath sounds nml Cardiovascular: positive: Regular rate & rhythm, No murmur, No gallop. negative : JVD present Peripheral Pulses: positive: 2+ Abdomen: positive: Non-tender, No organomegaly, Nml bowel sounds, No distention. negative: Guarding, Rebound Back: positive: Nml inspection. negative: CVA tenderness (R), CVA tenderness (L ) Skin: positive: Color nml, No rash, Warm, Dry Extremities: positive: Non-tender, Full ROM, Nml appearance Neurologic/Psychiatric: positive: Oriented x3, CN's nml (2-12), Motor nml, Sensation nml, Mood/affect nml Physical Exam Other/Comments: PATIENT HAS JONES TO GRAVITY DRAINING YELLOW URINE - LABS Result Diagrams: 05/18/17 07:27 05/18/17 07:27 Other Lab Results: Abnormal Lab Results 05/17/17 05/17/17 05/18/17 07:56 07:56 07:27 WBC 11.4 x10^3/uL H x10^3/uL (4.8-10.8) RBC 4.33 10^6/uL L 10^6/uL 4.49 10^6/uL L 10^6/uL (4.70-6.10) (4.70-6.10) Hgb 12.8 g/dL L g/dL 13.1 g/dL L g/dL (14.0-18.0) (14.0-18.0) Hct 37.1 % L % 38.6 % L % (42.0-52.0) (42.0-52.0) Neut # 7.9 10^3/uL H 10^3/uL (1.5-6.6) Myelocytes % 2 % H % ( - 0) Estimated GFR (MDRD) 60 L (>89) Glucose Calcium 8.1 mg/dL L mg/dL (8.5-10.3) AST 63 IU/L H IU/L (10-42) ALT 90 IU/L H IU/L (10-60) Alkaline Phosphatase 40 IU/L L IU/L (42-121) Total Protein 6.0 g/dL L g/dL (6.7-8.2) Albumin 2.9 g/dL L g/dL (3.2-5.5) Albumin/Globulin Ratio 0.9 L (1.0-2.2) 05/18/17 07:27 WBC RBC Hgb Hct Neut # Myelocytes % Estimated GFR (MDRD) 67 L (>89) Glucose 103 mg/dL H mg/dL (70-100) Calcium 8.2 mg/dL L mg/dL (8.5-10.3) AST 58 IU/L H IU/L (10-42) ALT 96 IU/L H IU/L (10-60) Alkaline Phosphatase Total Protein 6.5 g/dL L g/dL (6.7-8.2) Albumin 3.1 g/dL L g/dL (3.2-5.5) Albumin/Globulin Ratio 0.9 L (1.0-2.2) - DIAGNOSTIC IMAGING Diagnostic Imaging Results: Final report reviewed - FOLLOW UP Follow Up: PLEASE SEE NOTE FOR UROLOGY AND PATIENT WAS INSTRUCTED TO FOLLOWUP WITH PRIMARY CARE PROVIDER AND [facility] WITH DR TOPETE THE NEXT DAY. WENT HOME WITH JONES AND LEG BAG VERBALLY UNDERSTOOD ALL INSTRUCTIONS GIVEN - TIME SPENT Time Spent in Discharge (Minutes): 40 (PLANNING AND ASSESSMENT)
[2017-05-18 13:28] LABS: BILIRUBIN,URINE NEGATIVE (NEGATIVE)
[2017-05-18 13:39] LABS: UR CULTURE IF IND INDICATED
--- NOTE | 2017-05-18 17:38 | DISCHARGE SUMMARY ---
DATE OF ADMISSION: 05/13/2017 DATE OF DISCHARGE: 05/18/2017 ADMITTING DIAGNOSES: 1. Sepsis with acute kidney injury secondary to bilateral hydronephrosis, with stranding. 2. Chronic osteoarthritis, with left total knee arthroscopy. 3. Acute pulmonary emboli, without acute cor pulmonale, status post left total knee arthroplasty. 4. Acute hypotension secondary to sepsis. 5. Hypermagnesemia. 6. Hyperphosphatemia. DISCHARGE DIAGNOSES: 1. Acute sepsis secondary to acute renal failure, with bilateral hydronephrosis. 2. Acute pulmonary emboli, status post left total knee arthroplasty. 3. Acute hypermagnesemia and hyperphosphatemia, with other electrolyte imbalances secondary to sepsis . 4. Leukocytosis. 5. Hyponatremia secondary to sepsis. 6. Acute urinary retention, with chronic benign prostatic hypertrophy. 7. Acute hypotension, with sepsis. HOSPITAL COURSE AND TREATMENT: The patient is a 67-year-old gentleman who presented through the ER, s tatus post total left knee replacement by Drs. Cummings and Nate, who came in reporting chest pain, fatigue, weakness, inability to urinate, fever, and chills to the ER, sent over by Dr. Cummings's offi ce. The patient states that he had had significant shortness of breath, general malaise and weakness, and had a fever with sweating and chills. While in the ER, he was worked up and found to have a crea tinine of 8.8, a white blood count of 19,000, hyponatremia at 128, an elevated magnesium at 4.5, and an elevated phosphorus. The patient was found to be in acute renal failure and dehydrated, with sepsi s. CT and ultrasound were performed of the bladder, abdomen, and pelvis. It was noted that he had on the CT a distended bladder and bilateral hydronephrosis. A Aguillon was placed in the ER, and the patien t was admitted as inpatient status. The patient immediately put out 2 liters of dark yellow urine. Ur inalysis was completed and negative for a UTI. The patient was given IV fluid boluses x2 in the ER an d was continued on aggressive hydration with normal saline at 200 mL an hour once he was moved to the floor. The patient also underwent a CTA of the chest and was found to have bilateral pulmonary embol i. At the time of the operation for the total left knee surgery, the patient was discharged home on L ovenox and on an anticoagulant from Orthopedics. However, the pharmacy only gave the patient enough f or 6 days, and the patient was unable to complete the course of treatment. The patient then remained un-anticoagulated for several days after the total knee procedure. The patient continued to have pain in the left knee along with chest pain at that time, and he continued to take the Dilaudid medicatio n that was given to him by Orthopedics for his knee. Unfortunately, this caused the patient to become distended and constipated. While inpatient, he received a tap water enema, Dulcolax, and magnesium c itrate, and the patient was able to finally have a bowel movement, which helped to relieve a signific ant amount of abdominal pressure and help him to urinate easier. The patient continued to have the Fo edna in place over the course of his inpatient stay. Two days prior to discharge, the Aguillon was remove d with a trial of voiding. After 2 hours, the patient was still not able to void. A bladder scan was performed and found to have 900 mL of urine in it. The Aguillon was placed back in since the patient did not want a straight cath at that time, and the patient urinated 650 mL out. His pain medication was transitioned from Dilaudid over to tramadol, which is less constipating. The patient's electrolytes w ere monitored, and his white count was monitored. The day before discharge, his creatinine was down t o 0.9, and his white count was at 8.5. The patient was not complaining of a fever or chills. He was u p and ambulating at that time. The day before discharge, another trial run of voiding was performed, and the Aguillon catheter was then removed again. Two hours later, the patient was still unable to void. A bladder scan was done, and the patient had over 600 mL again in the bladder. So, the Aguillon was rep laced, and the patient was to go home with the Aguillon, to follow up with Urology at [facility] the next da y. On the day of discharge, an appointment was made with [facility] for the patient to see Dr. Mitchell celaya at 12:45 on May 20 for urinary retention and BPH. The patient was given instructions to go home with a leg bag, and the patient was counseled on Aguillon care by not only the hospitalist staff, but by nursing. The patient verbally understood these instructions that were given to him. For his pu lmonary embolism, the patient was started on Xarelto at 15 mg b.i.d. for 21 days. He was then to orona sition to 20 mg daily. This was explained in full detail to the patient, and he verbally understood. He was given a prescription for Xarelto for 20 additional days at 15 mg b.i.d. The patient understood that the prescription for the next dosage of Xarelto was to be given to him by his primary care prov ider. The patient understood that he was to be closely monitored since he was on anticoagulation ther apy. The patient was also seen by Orthopedics on consult for evaluation of the left total knee and fo r healing. Physical and Occupational Therapy did consult with the patient to work with him status pos t knee surgery. The patient was at baseline at the time of discharge as far as Physical Therapy was c oncerned. The patient did continue on his home medications while inpatient, with the exception of the testosterone, Zyrtec, and lisinopril. He did restart on lisinopril the day before discharge since hi s kidney function had improved. The patient also was started on Rocephin since he did have a slight b ump in his white count and with replacement of a Aguillon catheter twice, the patient had an increased p ossibility for obtaining a UTI. The patient did have cloudy urine. A urinalysis was sent at discharge . The patient was sent home on Ceftin for empiric treatment. PHYSICAL EXAMINATION: CONSTITUTIONAL: The patient was alert and in no acute distress. EYES: Pupils were equal, round, and reactive to light and accommodation. Conjunctivae and sclerae wer e nonicteric and not injected. ENT: Nares were patent. No nasal discharge. OROPHARYNX: With no masses, exudates, or lesions. Mucous membranes were moist. NECK: Supple. No thyromegaly. CARDIOVASCULAR: S1 and S2 were noted. No gallops, murmurs, or rubs. RESPIRATORY: Breath sounds were clear and equal bilaterally to auscultation and percussion. No retrac tions or nasal flaring. GASTROINTESTINAL: The abdomen was soft and nontender. Bowel sounds were hypoactive. No guarding or re bound. The patient did still have mild tenderness to the pelvic region. A Aguillon was in place draining clear yellow urine. SKIN: Warm, dry, and intact. Normal turgor. No evidence of rash, lesions, or cellulitis noted. Dylan daniel left knee incision, status post total knee arthroscopy. PSYCHIATRIC: Appeared appropriate. Normal affect. Pleasant mood. HEMATOLOGIC: No active bleeding. The patient was hemodynamically stable. LYMPHATICS: No cervical, axillary, or supraclavicular lymphadenopathy was noted. VITAL SIGNS: Blood pressure was 112/66, respirations 20, heart rate 102, and temperature 37.1. NEUROLOGIC: The patient was alert and in no acute distress. GCS 15. Cranial nerves 2 through 12 were grossly intact. Sensory was intact. DISCHARGE INSTRUCTIONS: 1. Activity: Continue activity as tolerated. Walking is best. Try to get exercise daily. 2. Diet: Continue to eat a heart-healthy, low-cholesterol diet. Drink plenty of fluids throughout the day. Avoid soda. 3. Medications: Please continue to take your home medications as prescribed. You have been given an a ntibiotic, Ceftin, Tramadol for pain, [place]-3 for cholesterol, and Flomax for urinary retention. 4. The patient was given instructions for followup with Dr. Mccann at [facility] with an appointmen t on May 19 at 12:45 p.m. The patient verbally understood that he is to take his prescription s with him and the referral. 5. The patient was instructed to see his primary care provider within 1-2 days status post discharge. MEDICATIONS AT DISCHARGE: 1. Zyrtec 5 mg p.o. daily. 2. Lisinopril 20 mg p.o. daily. 3. [place] Thyroid 30 mg p.o. daily. 4. Ambien 2.5 mg p.o. at night. 5. Tylenol 650 mg p.o. as needed. 6. [place]-3 2 grams p.o. daily. 7. Senna t.i.d. as needed. 8. Ativan 1 mg p.o. t.i.d. as needed. 9. Prazosin HCL 5 mg p.o. daily. 10. Flomax 0.4 mg p.o. b.i.d. 11. Ceftin 500 mg q.12h. x7. 12. Tramadol 50 mg p.o., 1 tablet q.6h. p.r.n. for pain. CONSULTATIONS: Surgery and Physical Therapy. PROCEDURES: 1. EKG showed a normal sinus rhythm and inferior Q-waves, with no ST elevation or ischemia. 2. Bladder ultrasound which showed right and left hydronephrosis. 3. CT of abdomen and pelvis with IV contrast. The impression showed a distended bladder, bilateral hy dronephrosis, right greater than left, with stranding of stones, dilated colon, no transition, questi onable ileus, gallstones without evidence of acute cholecystitis. No perforation or obstruction. CODE STATUS: The patient was to remain a FULL CODE STATUS. Time spent on discharge was 45 minutes for planning, assessment, and education. The patient was given all information regarding referral to Urology. He was sent home with a leg bag and Aguillon catheter. Sammie foy was sent home with prescriptions and instructions for followup with both Urology and his primary ca re. JOB #: [id number] EXT JOB #:[id number]
== END 2017-05-18 13:22 | disposition home or self-care (01) | DRG 871 ==
LOC: ED 10:58 → MS2 15:03
PROVIDERS: ADMIT Nurse Practitioner; ATTEND Nurse Practitioner
DX: A41.9 Sepsis, unspecified organism (principal); I95.9 Hypotension, unspecified; I26.99 Other pulmonary embolism without acute cor pulmonale; N17.9 Acute kidney failure, unspecified; N13.30 Unspecified hydronephrosis; T81.718A Complication of other artery following a procedure, not elsewhere classified, initial encounter; N40.0 Benign prostatic hyperplasia without lower urinary tract symptoms; E87.1 Hypo-osmolality and hyponatremia; T83.518A Infection and inflammatory reaction due to other urinary catheter, initial encounter; R65.20 Severe sepsis without septic shock; M19.90 Unspecified osteoarthritis, unspecified site; Z79.891 Long term (current) use of opiate analgesic; Z79.899 Other long term (current) drug therapy; E83.41 Hypermagnesemia; E83.39 Other disorders of phosphorus metabolism; N40.1 Benign prostatic hyperplasia with lower urinary tract symptoms; R33.8 Other retention of urine; I95.89 Other hypotension; K59.03 Drug induced constipation; T40.2X5A Adverse effect of other opioids, initial encounter; I10 Essential (primary) hypertension; E03.9 Hypothyroidism, unspecified; K21.9 Gastro-esophageal reflux disease without esophagitis; H54.7 Unspecified visual loss; H91.90 Unspecified hearing loss, unspecified ear; F43.10 Post-traumatic stress disorder, unspecified; Z87.01 Personal history of pneumonia (recurrent); Z96.652 Presence of left artificial knee joint
CPT/HCPCS: 36415; 51700; 51702; 71250; 74176; 76857; 80048; 80053; 81001; 81003; 82550; 82553; 83605; 83690; 83735; 84100; 84403; 84439; 84443; 84481; 84484; 85025; 85610; 87040; 87086; 93005; 96372; 96374; 96375; 96376; 99284

== ENCOUNTER 2017-06-06 02:34 | Emergency (ER) | payer MEDICARE, OTHER ==
[2017-06-06 02:42] VITALS: BP 114/73
--- NOTE | 2017-06-06 02:49 | ED Physician Documentation ---
PD HPI MALE - Stated complaint Stated Complaint: MALE - Chief complaint Chief Complaint: Abd Pain - History obtained from History obtained from: Patient - History of Present Illness Timing - onset: Last night Timing - duration: Hours Timing - details: Gradual onset Pain level now: 8 Associated symptoms: Unable to urinate, Hematuria, Grijalva problem Recently seen: Emergency Dept (last week (SV)) - Additional information Additional information: patient had left TKR 04/28 and has required ongoing grijalva catheter since then due to recurrent urinary retention; most recent catheter change was last week in [facility] due to obstruction of the catheter. He developed gross hematuria earlier this week and contacted his urologist, has upcoming appointment. For the past several hours, he has had increasing urge to urinate despite no UO into grijalva bag. Review of Systems Constitutional: denies: Fever GI: reports: Abdominal Pain (suprapubic) : reports: Unable to Void, Hematuria, Grijalva Problem PD PAST MEDICAL HISTORY - Past Medical History Past Medical History: Yes Cardiovascular: Hypertension Respiratory: Pneumonia Endocrine/Autoimmune: HyPOthyroidism GI: GERD : Benign prostate hypertrophy HEENT: Chronic vision loss, Chronic hearing loss, Other Psych: Post traumatic stress disorder, Other Musculoskeletal: Osteoarthritis Derm: Other - Past Surgical History Past Surgical History: Yes General: Other Ortho: Arthroscopic surgery HEENT: Tonsil/Adenoidectomy, Other - Present Medications Home Medications: Ambulatory Orders Medication Instructions Recorded Confirmed Lisinopril 20 mg PO DAILY 08/07/15 05/13/17 Thyroid,Pork [[place] Thyroid] 30 mg PO DAILY 08/07/15 05/13/17 Prazosin HCl 5 mg PO DAILY 04/20/17 05/13/17 Zolpidem [Ambien] 2.5 mg PO HS PRN 04/20/17 05/13/17 Acetaminophen [Tylenol] 650 - 975 mg PO Q4HR PRN #0 tablet 05/01/17 05/13/17 [place]-3 Acid Ethyl Esters [Lovaza] 1 gm PO DAILY capsule 05/01/17 05/13/17 Lorazepam [Ativan] 1 mg PO TID PRN #5 tablet 05/09/17 05/13/17 Aspirin [Aspir-Low] 81 mg PO DAILY 05/13/17 05/13/17 Testosterone Cypionate 200 mg IM UD 05/13/17 05/13/17 [Depo-Testosterone] Cefuroxime Axetil [Ceftin] 500 mg PO Q12H #20 tablet 05/18/17 Rivaroxaban [Xarelto] 15 mg PO BID #40 tablet 05/18/17 Saccharomyces Boulardii [Florastor] 250 mg PO BID #20 capsule 05/18/17 Tamsulosin [Flomax] 0.4 mg PO BID #20 capsule 05/18/17 traMADol [Ultram] 50 mg PO Q4HR PRN #30 tablet 05/18/17 - Allergies Allergies/Adverse Reactions: Allergies Allergy/AdvReac Type Severity Reaction Status Date / Time amoxicillin trihydrate * AdvReac Unknown Verified 06/06/17 02:38 [From Augmentin] potassium clavulanate * AdvReac Unknown Verified 06/06/17 02:38 [From Augmentin] - Social History Does the pt smoke?: No Smoking Status: Never smoker Does the pt drink ETOH?: No Does the pt have substance abuse?: No - Immunizations Immunizations are current?: Yes - POLST Patient has POLST: No POLST Status: Full Code PD ED PE NORMAL - Vitals Vital signs reviewed: Yes - General General: Alert and oriented X 3, Well developed/nourished, Other (appears uncomfortable) - Abdomen Abdomen: Soft, Non distended, Other (suprapubic tenderness; rgijalva catheter in place, no urine in leg bag) - Back Back: No CVA TTP Results - Vitals Vitals: Vital Signs - 24 hr 06/06/17 06/06/17 02:38 04:10 Temperature 36.5 C Heart Rate 91 82 Respiratory 16 17 Rate Blood Pressure 114/73 O2 Saturation 96 97 Oxygen O2 Source Room air PD MEDICAL DECISION MAKING - ED course Complexity details: re-evaluated patient, considered differential, d/w patient ED course: RN was able to flush the catheter and there was immediate output of 600-700 CC of grossly bloody urine and resolution of symptoms. He was observed in ED for another hour and continued to have good UO and no recurrence of symptoms. Departure - Departure Disposition: 01 Home, Self Care Clinical Impression: Urinary retention Condition: Good Instructions: ED Catheter Care [place], ELSY Retention Urinary Male Discharge Date/Time: 06/06/17 04:15
== END 2017-06-06 04:15 | disposition home or self-care (01) ==
LOC: ED 02:34
DX: R33.9 Retention of urine, unspecified (principal); I10 Essential (primary) hypertension; E03.9 Hypothyroidism, unspecified
CPT/HCPCS: 99282; 99283

== ENCOUNTER 2017-06-16 09:29 | Outpatient (CLI) | payer MEDICARE, OTHER | END 2017-06-16 09:30 | disposition home or self-care (01) | LOC: SC 09:29 | PROVIDERS: ATTEND Internal Medicine Pulmonary Disease | DX: G47.33 Obstructive sleep apnea (adult) (pediatric) (principal) | CPT/HCPCS: 99203; G0463; 99212 ==

== ENCOUNTER 2017-08-01 04:16 | Emergency (ER) | payer MEDICARE, OTHER ==
[2017-08-01 04:58] LABS: BILIRUBIN,URINE NEGATIVE (NEGATIVE)
[2017-08-01 05:21] LABS: UA w/ MICROSCOPIC CHARGE YES
[2017-08-01 05:22] LABS: UR CULTURE IF IND INDICATED
--- NOTE | 2017-08-01 06:15 | ED Physician Documentation ---
PD HPI MALE - Stated complaint Stated Complaint: MALE - Chief complaint Chief Complaint: Abd Pain - History obtained from History obtained from: Patient - History of Present Illness Timing - onset: Enter time (3 PM), Today Timing - duration: Hours Timing - details: Gradual onset Pain level max: 8 Pain level now: 1 (after grijalva placement in ED) Associated symptoms: Unable to urinate Recently seen: Clinic, Emergency Dept - Additional information Additional information: patient has had grijalva catheter in place for majority of the time since knee surgery several months ago. he recurrently would have retention soon after grijalva was removed, requiring reinsertion as well as ED visits for clogged catheters. yesteday at 3 PM, patient coughed and felt movement of grijalva, and he found that with minimal traction, the grijalva came out with balloon deflated (he was not trying to remove the catheter per se, but he knew that the catheter was functioning properly, it should not come out with such gentle traction). He called his urologists office, but they were getting ready to close. They encouraged him to drink lots of fluids, to call Thursday and they can see him then , and to go to ED if he goes into urinary retention. While he has been able to urinate since the catheter came out, it has been decreasing amounts despite increasing urge to urinate and increasing suprapubic pain. Review of Systems Constitutional: denies: Fever GI: reports: Abdominal Pain. denies: Nausea, Vomiting : reports: Unable to Void, Grijalva Problem. denies: Dysuria PD PAST MEDICAL HISTORY - Past Medical History Past Medical History: Yes Cardiovascular: Hypertension Respiratory: Pneumonia Endocrine/Autoimmune: HyPOthyroidism GI: GERD : Benign prostate hypertrophy HEENT: Chronic vision loss, Chronic hearing loss, Other Psych: Post traumatic stress disorder, Other Musculoskeletal: Osteoarthritis Derm: Other - Past Surgical History Past Surgical History: Yes General: Other Ortho: Arthroscopic surgery HEENT: Tonsil/Adenoidectomy, Other - Present Medications Home Medications: Ambulatory Orders Medication Instructions Recorded Confirmed Lisinopril 20 mg PO DAILY 08/07/15 05/13/17 Thyroid,Pork [[place] Thyroid] 30 mg PO DAILY 08/07/15 05/13/17 Prazosin HCl 5 mg PO DAILY 04/20/17 05/13/17 Zolpidem [Ambien] 2.5 mg PO HS PRN 04/20/17 05/13/17 Acetaminophen [Tylenol] 650 - 975 mg PO Q4HR PRN #0 tablet 05/01/17 05/13/17 [place]-3 Acid Ethyl Esters [Lovaza] 1 gm PO DAILY capsule 05/01/17 05/13/17 Lorazepam [Ativan] 1 mg PO TID PRN #5 tablet 05/09/17 05/13/17 Aspirin [Aspir-Low] 81 mg PO DAILY 05/13/17 05/13/17 Testosterone Cypionate 200 mg IM UD 05/13/17 05/13/17 [Depo-Testosterone] Rivaroxaban [Xarelto] 15 mg PO BID #40 tablet 05/18/17 Saccharomyces Boulardii [Florastor] 250 mg PO BID #20 capsule 05/18/17 Tamsulosin [Flomax] 0.4 mg PO BID #20 capsule 05/18/17 cefUROXime axetil [Ceftin] 500 mg PO Q12H #20 tablet 05/18/17 traMADol [Ultram] 50 mg PO Q4HR PRN #30 tablet 05/18/17 - Allergies Allergies/Adverse Reactions: Allergies Allergy/AdvReac Type Severity Reaction Status Date / Time amoxicillin trihydrate * AdvReac Unknown Verified 08/01/17 04:27 [From Augmentin] potassium clavulanate * AdvReac Unknown Verified 08/01/17 04:27 [From Augmentin] - Social History Does the pt smoke?: No Smoking Status: Never smoker Does the pt drink ETOH?: No Does the pt have substance abuse?: No - Immunizations Immunizations are current?: Yes - POLST Patient has POLST: No POLST Status: Full Code PD ED PE NORMAL - Vitals Vital signs reviewed: Yes - General General: Alert and oriented X 3, No acute distress (was in significant painful distress on arrival, but NAD after insertion of grijalva catheter), Well developed/ nourished - Abdomen Abdomen: Soft, Non tender, Non distended - Back Back: No CVA TTP Results - Vitals Vitals: Vital Signs - 24 hr 08/01/17 08/01/17 08/01/17 04:22 05:20 06:35 Temperature 36.7 C 36.3 C L Heart Rate 93 76 90 Respiratory 19 14 16 Rate Blood Pressure 159/93 H 130/74 138/75 H O2 Saturation 98 96 100 Oxygen O2 Source Room air - Labs Labs: Microbiology 08/01/17 04:35 Urine Culture - Preliminary Urine,Catheterized Laboratory Tests 08/01/17 04:35 Urine Color YELLOW Urine Clarity HAZY Urine pH 7.0 Ur Specific [place] 1.020 Urine Protein NEGATIVE Urine Glucose (UA) NEGATIVE Urine Ketones NEGATIVE Urine Occult Blood MODERATE H Urine Nitrite POSITIVE H Urine Bilirubin NEGATIVE Urine Urobilinogen 0.2 (NORMAL) Ur Leukocyte Esterase SMALL H Urine RBC 11-25 H Urine WBC 6-10 H Ur Squamous Epith Cells NONE SEEN Urine Bacteria Moderate H Ur Microscopic Review INDICATED Urine Culture Comments INDICATED PD MEDICAL DECISION MAKING - ED course Complexity details: reviewed old records, re-evaluated patient, considered differential, d/w patient ED course: RN inserted grijalva catheter without resistance or difficulty, over 500 cc blood- tinged urine returned that was increasingly clear during output, and associated with resolution of symptoms Departure - Departure Disposition: 01 Home, Self Care Clinical Impression: Urinary retention Condition: Good Instructions: ED Catheter Care Grijalva, ED Retention Urinary Male Comments: Follow up with your urologist; call Thursday to arrange for next available appointment Discharge Date/Time: 08/01/17 06:41
[2017-08-01 06:39] VITALS: BP 138/75
== END 2017-08-01 06:41 | disposition home or self-care (01) ==
LOC: ED 04:16
DX: R33.9 Retention of urine, unspecified (principal); I10 Essential (primary) hypertension; E03.9 Hypothyroidism, unspecified; K21.9 Gastro-esophageal reflux disease without esophagitis; N40.0 Benign prostatic hyperplasia without lower urinary tract symptoms; M19.90 Unspecified osteoarthritis, unspecified site; Z79.82 Long term (current) use of aspirin
CPT/HCPCS: 51702; 51798; 81001; 81003; 87077; 87086; 99283

== ENCOUNTER 2017-08-19 20:23 | Emergency (ER) | payer MEDICARE, OTHER ==
--- NOTE | 2017-08-19 20:43 | ED Physician Documentation ---
History of Present Illness - Stated complaint Stated Complaint: MALE - Chief complaint Chief Complaint: General - History obtained from History obtained from: Patient - History of Present Illness Timing: Today (He's had issues with urinary retention ever since a left TKR in late March and has been grijalva dependent for the most part since then. Had grijalva removed today In the urologist's office. He successfully voided after the Grijalva removal but has not really been able to void since leaving the office and has severe suprapubic pressure again and feeling like his bladder is blocked. He was started on Cipro today.) Review of Systems Ten Systems: 10 systems reviewed and negative Constitutional: denies: Fever, Chills Throat: denies: Dental pain / toothache, Sore throat Cardiac: denies: Chest pain / pressure, Palpitations PD PAST MEDICAL HISTORY - Past Medical History Cardiovascular: Hypertension Respiratory: Pneumonia Endocrine/Autoimmune: HyPOthyroidism GI: GERD : Benign prostate hypertrophy HEENT: Chronic vision loss, Chronic hearing loss, Other Psych: Post traumatic stress disorder, Other Musculoskeletal: Osteoarthritis Derm: Other - Past Surgical History Past Surgical History: Yes General: Other Ortho: Arthroscopic surgery HEENT: Tonsil/Adenoidectomy, Other - Present Medications Home Medications: Ambulatory Orders Medication Instructions Recorded Confirmed Lisinopril 20 mg PO DAILY 08/07/15 05/13/17 Thyroid,Pork [[place] Thyroid] 30 mg PO DAILY 08/07/15 05/13/17 Prazosin HCl 5 mg PO DAILY 04/20/17 05/13/17 Zolpidem [Ambien] 2.5 mg PO HS PRN 04/20/17 05/13/17 Acetaminophen [Tylenol] 650 - 975 mg PO Q4HR PRN #0 tablet 05/01/17 05/13/17 [place]-3 Acid Ethyl Esters [Lovaza] 1 gm PO DAILY capsule 05/01/17 05/13/17 Lorazepam [Ativan] 1 mg PO TID PRN #5 tablet 05/09/17 05/13/17 Aspirin [Aspir-Low] 81 mg PO DAILY 05/13/17 05/13/17 Testosterone Cypionate 200 mg IM UD 05/13/17 05/13/17 [Depo-Testosterone] Rivaroxaban [Xarelto] 15 mg PO BID #40 tablet 05/18/17 Saccharomyces Boulardii [Florastor] 250 mg PO BID #20 capsule 05/18/17 Tamsulosin [Flomax] 0.4 mg PO BID #20 capsule 05/18/17 cefUROXime axetil [Ceftin] 500 mg PO Q12H #20 tablet 05/18/17 traMADol [Ultram] 50 mg PO Q4HR PRN #30 tablet 05/18/17 - Allergies Allergies/Adverse Reactions: Allergies Allergy/AdvReac Type Severity Reaction Status Date / Time amoxicillin trihydrate * AdvReac Unknown Verified 08/01/17 04:27 [From Augmentin] potassium clavulanate * AdvReac Unknown Verified 08/01/17 04:27 [From Augmentin] - Social History Does the pt smoke?: No Smoking Status: Never smoker Does the pt drink ETOH?: No Does the pt have substance abuse?: No - Immunizations Immunizations are current?: Yes - POLST Patient has POLST: No POLST Status: Full Code PD ED PE NORMAL - Vitals Vital signs reviewed: Yes - General General: Alert and oriented X 3, Other (appears uncomfortable) - Abdomen Abdomen: Normal bowel sounds, Soft, Other (Suprapubic TTP) - Extremities Extremities: No edema, No calf tenderness / cord - Neuro Neuro: Alert and oriented X 3, Normal speech Results - Vitals Vitals: Vital Signs - 24 hr 08/19/17 20:29 Temperature 36.2 C L Heart Rate 84 Respiratory 19 Rate Blood Pressure 171/98 H O2 Saturation 98 Oxygen O2 Source Room air PD MEDICAL DECISION MAKING - ED course ED course: The Grijalva was replaced and he is advised to continue his medications and talk with his urologist tomorrow. Departure - Departure Disposition: 01 Home, Self Care Clinical Impression: Urinary retention Condition: Good Record reviewed to determine appropriate education?: Yes Instructions: Leg Bag Care Dc, ED Catheter Care Grijalva Comments: Continue your medications including the antibiotic, and 2 prostate medications. Call your urologist's office tomorrow to arrange for follow-up and further treatment.
[2017-08-19 21:04] VITALS: BP 145/97
== END 2017-08-19 20:55 | disposition home or self-care (01) ==
LOC: ED 20:23
DX: R33.9 Retention of urine, unspecified (principal); Z98.890 Other specified postprocedural states; Z96.652 Presence of left artificial knee joint; I10 Essential (primary) hypertension; E03.9 Hypothyroidism, unspecified; K21.9 Gastro-esophageal reflux disease without esophagitis; N40.0 Benign prostatic hyperplasia without lower urinary tract symptoms; M19.90 Unspecified osteoarthritis, unspecified site; Z79.82 Long term (current) use of aspirin
CPT/HCPCS: 51702; 99283

== ENCOUNTER 2017-09-02 15:22 | Emergency (ER) | payer MEDICARE, OTHER ==
[2017-09-02] MEDS ORDERED: LIDOCAINE 2% URO-JET 5 ML SYRINGE UR STA (15:26)
--- NOTE | 2017-09-02 15:37 | ED Physician Documentation ---
PD HPI MALE - Stated complaint Stated Complaint: MALE - Chief complaint Chief Complaint: Abd Pain - History obtained from History obtained from: Patient, Family - History of Present Illness Timing - onset: Today Pain level max: 9 Pain level now: 9 Associated symptoms: Unable to urinate Similar symptoms before: Diagnosis (urinary retention) Recently seen: Clinic (seen in urology clinic today and catheter removed. now unable to urinate.) - Additional information Additional information: has had issues with urinary retention several months ago. Review of Systems Constitutional: denies: Fever, Chills GI: denies: Vomiting Skin: denies: Rash Musculoskeletal: denies: Neck pain, Back pain Neurologic: denies: Headache PD PAST MEDICAL HISTORY - Past Medical History Cardiovascular: Hypertension Respiratory: Pneumonia Endocrine/Autoimmune: HyPOthyroidism GI: GERD : Benign prostate hypertrophy HEENT: Chronic vision loss, Chronic hearing loss, Other Psych: Post traumatic stress disorder, Other Musculoskeletal: Osteoarthritis Derm: Other - Past Surgical History Past Surgical History: Yes General: Other Ortho: Arthroscopic surgery HEENT: Tonsil/Adenoidectomy, Other - Present Medications Home Medications: Ambulatory Orders Medication Instructions Recorded Confirmed Lisinopril 20 mg PO DAILY 08/07/15 09/02/17 Thyroid,Pork [[place] Thyroid] 30 mg PO DAILY 08/07/15 09/02/17 Prazosin HCl 5 mg PO DAILY 04/20/17 09/02/17 Zolpidem [Ambien] 2.5 mg PO HS PRN 04/20/17 09/02/17 Acetaminophen [Tylenol] 650 - 975 mg PO Q4HR PRN #0 tablet 05/01/17 09/02/17 [place]-3 Acid Ethyl Esters [Lovaza] 1 gm PO DAILY capsule 05/01/17 09/02/17 Lorazepam [Ativan] 1 mg PO TID PRN #5 tablet 05/09/17 09/02/17 Aspirin [Aspir-Low] 81 mg PO DAILY 05/13/17 09/02/17 Testosterone Cypionate 200 mg IM UD 05/13/17 09/02/17 [Depo-Testosterone] Rivaroxaban [Xarelto] 15 mg PO BID #40 tablet 05/18/17 09/02/17 Saccharomyces Boulardii [Florastor] 250 mg PO BID #20 capsule 05/18/17 09/02/17 Tamsulosin [Flomax] 0.4 mg PO BID #20 capsule 05/18/17 09/02/17 cefUROXime axetil [Ceftin] 500 mg PO Q12H #20 tablet 05/18/17 09/02/17 traMADol [Ultram] 50 mg PO Q4HR PRN #30 tablet 05/18/17 09/02/17 - Allergies Allergies/Adverse Reactions: Allergies Allergy/AdvReac Type Severity Reaction Status Date / Time amoxicillin trihydrate * AdvReac Unknown Verified 08/19/17 21:06 [From Augmentin] potassium clavulanate * AdvReac Unknown Verified 08/19/17 21:06 [From Augmentin] - Social History Does the pt smoke?: No Smoking Status: Never smoker Does the pt drink ETOH?: No Does the pt have substance abuse?: No - Immunizations Immunizations are current?: Yes - POLST Patient has POLST: No POLST Status: Full Code PD ED PE NORMAL - Vitals Vital signs reviewed: Yes - General General: Alert and oriented X 3, No acute distress - HEENT HEENT: Moist mucous membranes - Neck Neck: Supple, no meningeal sign - Cardiac Cardiac: RRR - Respiratory Respiratory: No respiratory distress, Clear bilaterally - Abdomen Abdomen: Soft, Non tender, Non distended - Derm Derm: Warm and dry - Neuro Neuro: Alert and oriented X 3 - Psych Psych: Normal mood, Normal affect Results - Vitals Vitals: Vital Signs - 24 hr 09/02/17 15:25 Temperature 36.8 C Heart Rate 103 H Respiratory 17 Rate Blood Pressure 175/101 H O2 Saturation 100 Oxygen O2 Source Room air - Labs Labs: Laboratory Tests 09/02/17 15:45 Urine Color YELLOW Urine Clarity CLEAR Urine pH 6.5 Ur Specific [place] <=1.005 Urine Protein NEGATIVE Urine Glucose (UA) NEGATIVE Urine Ketones NEGATIVE Urine Occult Blood NEGATIVE Urine Nitrite NEGATIVE Urine Bilirubin NEGATIVE Urine Urobilinogen 0.2 (NORMAL) Ur Leukocyte Esterase NEGATIVE Ur Microscopic Review NOT INDICATED Urine Culture Comments NOT INDICATED PD MEDICAL DECISION MAKING - ED course Complexity details: reviewed results, re-evaluated patient, considered differential, d/w patient ED course: Patient with acute urinary retention after catheter removal earlier today. [place] catheter placed and bladder drained. No evidence of UTI on UA. We will leave the catheter in place and follow-up with urology as scheduled. Patient counseled regarding signs and symptoms for which I believe and urgent re- evaluation would be necessary. Patient with good understanding of and agreement to plan and is comfortable going home at this time This document was made in part using voice recognition software. While efforts are made to proofread this document, sound alike and grammatical errors may occur. Departure - Departure Disposition: 01 Home, Self Care Clinical Impression: Urinary retention Condition: Good Instructions: ED Catheter Care [place] Follow-Up: Gilmar Morales DO [Primary Care Provider] - Kurt Mccann MD [Physician No Access] - Comments: Return if you worsen. Keep the catheter in place. Your urine is clean today.
[2017-09-02 15:49] LABS: BILIRUBIN,URINE NEGATIVE (NEGATIVE); GLUCOSE, URINE (UA) NEGATIVE (NEGATIVE); KETONES,URINE (UA) NEGATIVE (NEGATIVE); LEUKOCYTE ESTERASE, URINE NEGATIVE (NEGATIVE); NITRITE,URINE NEGATIVE (NEGATIVE); OCCULT BLOOD,URINE NEGATIVE (NEGATIVE); PH,URINE 6.5 PH (5.0-7.5); PROTEIN,URINE NEGATIVE (NEGATIVE); UROBILINOGEN,URINE 0.2 (NORMAL) E.U./dL (NORMAL)
[2017-09-02 15:50] LABS: CLARITY,URINE CLEAR (CLEAR)
[2017-09-02 16:20] VITALS: BP 145/90
== END 2017-09-02 16:24 | disposition home or self-care (01) ==
LOC: ED 15:22
DX: N40.1 Benign prostatic hyperplasia with lower urinary tract symptoms (principal); R33.8 Other retention of urine; I10 Essential (primary) hypertension; E03.9 Hypothyroidism, unspecified
CPT/HCPCS: 51702; 81001; 81003; 87086; 99283

== ENCOUNTER 2017-10-12 19:26 | Outpatient (CLI) | payer MEDICARE, OTHER | END 2017-10-12 19:27 | disposition home or self-care (01) | LOC: SC 19:26 | PROVIDERS: ATTEND Internal Medicine Pulmonary Disease | DX: G47.33 Obstructive sleep apnea (adult) (pediatric) (principal); G47.61 Periodic limb movement disorder; R09.02 Hypoxemia | CPT/HCPCS: 95810 ==

== ENCOUNTER 2017-10-19 10:49 | Emergency (ER) | payer MEDICARE, OTHER ==
[2017-10-19 11:17] LABS: BILIRUBIN,URINE NEGATIVE (NEGATIVE); GLUCOSE, URINE (UA) NEGATIVE (NEGATIVE); KETONES,URINE (UA) NEGATIVE (NEGATIVE); LEUKOCYTE ESTERASE, URINE NEGATIVE (NEGATIVE); NITRITE,URINE NEGATIVE (NEGATIVE); OCCULT BLOOD,URINE NEGATIVE (NEGATIVE); PROTEIN,URINE NEGATIVE (NEGATIVE); UROBILINOGEN,URINE 0.2 (NORMAL) E.U./dL (NORMAL)
[2017-10-19 11:18] LABS: CLARITY,URINE CLEAR (CLEAR)
--- NOTE | 2017-10-19 13:01 | ED Physician Documentation ---
PD HPI MALE - Stated complaint Stated Complaint: MALE - Chief complaint Chief Complaint: Abd Pain - History obtained from History obtained from: Patient PD PAST MEDICAL HISTORY - Past Medical History Past Medical History: Yes Cardiovascular: Hypertension Respiratory: Pneumonia Endocrine/Autoimmune: HyPOthyroidism GI: GERD : Benign prostate hypertrophy HEENT: Chronic vision loss, Chronic hearing loss, Other Psych: Post traumatic stress disorder, Other Musculoskeletal: Osteoarthritis Derm: Other - Past Surgical History Past Surgical History: Yes General: Other Ortho: Arthroscopic surgery HEENT: Tonsil/Adenoidectomy, Other - Present Medications Home Medications: Ambulatory Orders Medication Instructions Recorded Confirmed Lisinopril 20 mg PO DAILY 08/07/15 10/19/17 Thyroid,Pork [[place] Thyroid] 30 mg PO DAILY 08/07/15 10/19/17 Prazosin HCl 5 mg PO DAILY 04/20/17 10/19/17 Zolpidem [Ambien] 2.5 mg PO HS PRN 04/20/17 10/19/17 Acetaminophen [Tylenol] 650 - 975 mg PO Q4HR PRN #0 tablet 05/01/17 10/19/17 [place]-3 Acid Ethyl Esters [Lovaza] 1 gm PO DAILY capsule 05/01/17 10/19/17 Aspirin [Aspir-Low] 81 mg PO DAILY 05/13/17 10/19/17 Testosterone Cypionate 200 mg IM UD 05/13/17 10/19/17 [Depo-Testosterone] Saccharomyces Boulardii [Florastor] 250 mg PO BID #20 capsule 05/18/17 10/19/17 Tamsulosin [Flomax] 0.4 mg PO BID #20 capsule 05/18/17 10/19/17 traMADol [Ultram] 50 mg PO Q4HR PRN #30 tablet 05/18/17 10/19/17 Naproxen 375 mg PO BID #20 tablet 10/19/17 Phenazopyridine HCl 100 mg PO TID PRN #20 tablet 10/19/17 Sulfamethox/Trimeth 800/160 1 each PO BID #14 tablet 10/19/17 [Bactrim Ds 800/160] - Allergies Allergies/Adverse Reactions: Allergies Allergy/AdvReac Type Severity Reaction Status Date / Time amoxicillin trihydrate * AdvReac Unknown Verified 08/19/17 21:06 [From Augmentin] potassium clavulanate * AdvReac Unknown Verified 08/19/17 21:06 [From Augmentin] - Social History Does the pt smoke?: No Smoking Status: Never smoker Does the pt drink ETOH?: No Does the pt have substance abuse?: No - Immunizations Immunizations are current?: Yes - POLST Patient has POLST: No POLST Status: Full Code PD ED PE NORMAL - Vitals Vital signs reviewed: Yes - General General: Alert and oriented X 3, No acute distress, Well developed/nourished - HEENT HEENT: PERRL, Ears normal, Moist mucous membranes, Pharynx benign, Other ( frontal sinus tender to percussion) - Neck Neck: Supple, no meningeal sign, No bony TTP, No adenopathy - Cardiac Cardiac: RRR, No murmur - Respiratory Respiratory: Clear bilaterally - Male Male : Other (normal genitalia and meatus without discharge.) - Back Back: No CVA TTP, No spinal TTP - Derm Derm: Normal color, Warm and dry, No rash - Extremities Extremities: No tenderness to palpate, Normal ROM s pain - Neuro Neuro: Alert and oriented X 3, No motor deficit, Normal speech Results - Vitals Vitals: Oxygen O2 Source Room air - Labs Labs: Microbiology 10/19/17 11:00 Urine Culture - Final Urine,Clean Catch No growth Laboratory Tests 10/19/17 11:00 Urine Color YELLOW Urine Clarity CLEAR Urine pH 5.0 Ur Specific [place] >=1.030 H Urine Protein NEGATIVE Urine Glucose (UA) NEGATIVE Urine Ketones NEGATIVE Urine Occult Blood NEGATIVE Urine Nitrite NEGATIVE Urine Bilirubin NEGATIVE Urine Urobilinogen 0.2 (NORMAL) Ur Leukocyte Esterase NEGATIVE Ur Microscopic Review NOT INDICATED Urine Culture Comments NOT INDICATED PD MEDICAL DECISION MAKING - ED course Complexity details: reviewed results, considered differential (has had sinus symptoms for weeks. urethritis separate but will choose abx to cover. may be just inflammatory urethritis due to self caths.), d/w patient Departure - Departure Disposition: 01 Home, Self Care Clinical Impression: Urethritis Sinusitis, acute Qualifiers: Sinusitis location: frontal Recurrence: non-recurrent Qualified Code(s): J01.10 - Acute frontal sinusitis, unspecified Condition: Stable Record reviewed to determine appropriate education?: Yes Instructions: ED Sinusitis Abx Tx, ED Urethritis Infec Vs Inflam Male Follow-Up: Gilmar Morales DO [Primary Care Provider] - Prescriptions: Naproxen 375 mg PO BID #20 tablet Phenazopyridine HCl 100 mg PO TID PRN #20 tablet PRN Reason: Pain Sulfamethox/Trimeth 800/160 [Bactrim Ds 800/160] 1 each PO BID #14 tablet Comments: Drink lots of fluids. Continue the intermittent self caths. Bactrim twice daily for potential infection. This should help the sinus as well as urethra. Naproxen twice daily for 7-10 days for inflammation. You can add phenazopyridine to help with discomfort of the urinary tract. Recheck if not improved over the next several days. Discharge Date/Time: 10/19/17 13:53
[2017-10-19] MEDS ORDERED: SULFAMETH/TRIMETH DS 800/160 MG TABLET PO STA (13:23)
[2017-10-19] MEDS ORDERED: PHENAZOPYRIDINE 100 MG TABLET PO STA (13:23)
[2017-10-19 13:47] VITALS: BP 136/80
== END 2017-10-19 13:53 | disposition home or self-care (01) ==
LOC: ED 10:49
DX: N34.2 Other urethritis (principal); J01.10 Acute frontal sinusitis, unspecified; N40.0 Benign prostatic hyperplasia without lower urinary tract symptoms; I10 Essential (primary) hypertension; Z79.82 Long term (current) use of aspirin
CPT/HCPCS: 81003; 87086; 87491; 87591; 99283; A9270; 81001

== ENCOUNTER 2017-10-26 10:36 | Inpatient (IN) | payer MEDICARE, OTHER ==
--- NOTE | 2017-10-26 12:03 | XRAY Report ---
EXAM: CHEST RADIOGRAPHY EXAM DATE: 10/26/2017 11:48 AM. CLINICAL HISTORY: Shortness of breath, cough, chest pain x2 weeks. COMPARISON: Chest radiographs 09/07/2014. Report of CT angiogram of the chest 05/13/2017. TECHNIQUE: 2 views. FINDINGS: Lungs/Pleura: There are coarse interstitial and patchy opacities in the bilateral upper lungs and lat eral periphery of the right midlung. Minimal bibasilar opacities are present. There are small bilater al pleural effusions. No pneumothorax. Mediastinum: Heart and mediastinal contours are unremarkable. Other: No acute osseous abnormality. IMPRESSION: 1. Coarse interstitial and patchy pulmonary opacities primarily in the bilateral upper lungs and priscilla phery of the right mid lung, with minimal bibasilar opacities. Findings may represent sequela of pulm onary infarcts from the extensive bilateral pulmonary emboli reportedly seen on prior CT angiogram. P neumonia is also in the differential. 2. Small bilateral pleural effusions. [facility] Referring Provider Line: [phone] SITE ID: [id number]
[2017-10-26 12:51] LABS: BASOPHILS # (AUTO) 0.1 10^3/uL (0.0-0.1); BASOPHILS % (AUTO) 0.7 %; EOSINOPHILS # (AUTO) 1.1 10^3/uL (0.0-0.7); EOSINOPHILS % (AUTO) 7.7 %; HGB - HEMOGLOBIN 15.6 g/dL (14.0-18.0); LYMPHOCYTES # (AUTO) 0.8 10^3/uL (1.5-3.5); LYMPHOCYTES % (AUTO) 5.6 %; MEAN CORPUSCULAR HEMOGLOBIN 29.7 pg (27.0-31.0); MEAN CORPUSCULAR HGB CONC 34.2 g/dL (32.0-36.0); MEAN CORPUSCULAR VOLUME 86.7 fL (80.0-94.0); MEAN PLATELET VOLUME 7.7 fL (7.4-11.4); MONOCYTES # (AUTO) 0.4 10^3/uL (0.0-1.0); NEUTROPHILS # (AUTO) 12.1 10^3/uL (1.5-6.6); PLT - PLATELET COUNT 270 10^3/uL (130-450); RED BLOOD COUNT 5.28 10^6/uL (4.70-6.10); RED CELL DISTRIBUTION WIDTH 16.2 % (12.0-15.0); WHITE BLOOD COUNT 14.5 x10^3/uL (4.8-10.8)
--- NOTE | 2017-10-26 12:52 | ED Physician Documentation ---
PD HPI URI - Stated complaint Stated Complaint: SOA - Chief complaint Chief Complaint: General - History obtained from History obtained from: Patient - History of Present Illness Timing - onset: How many weeks ago (Almost 2 weeks ago) Timing details: Gradual onset, Still present Associated symptoms: Chills, Nasal congestion, Sinus pain, Productive cough. No : Fever Contributing factors: No: Sick contact, Travel, Immunocompromised Recently seen: Emergency Dept (5 or 6 days ago with diagnosis of sinusitis and possible bronchitis. He is prescribed Bactrim at the time. He has not had any improvement and has had worsening cough and dyspnea.) PD PAST MEDICAL HISTORY - Past Medical History Cardiovascular: Hypertension Respiratory: Pneumonia Endocrine/Autoimmune: HyPOthyroidism GI: GERD : Benign prostate hypertrophy HEENT: Chronic vision loss, Chronic hearing loss, Other Psych: Post traumatic stress disorder, Other Musculoskeletal: Osteoarthritis Derm: Other - Past Surgical History Past Surgical History: Yes General: Other Ortho: Arthroscopic surgery HEENT: Tonsil/Adenoidectomy, Other - Present Medications Home Medications: Ambulatory Orders Medication Instructions Recorded Confirmed Lisinopril 20 mg PO DAILY 08/07/15 10/19/17 Thyroid,Pork [[place] Thyroid] 30 mg PO DAILY 08/07/15 10/19/17 Prazosin HCl 5 mg PO DAILY 04/20/17 10/19/17 Zolpidem [Ambien] 2.5 mg PO HS PRN 04/20/17 10/19/17 Acetaminophen [Tylenol] 650 - 975 mg PO Q4HR PRN #0 tablet 05/01/17 10/19/17 [place]-3 Acid Ethyl Esters [Lovaza] 1 gm PO DAILY capsule 05/01/17 10/19/17 Aspirin [Aspir-Low] 81 mg PO DAILY 05/13/17 10/19/17 Testosterone Cypionate 200 mg IM UD 05/13/17 10/19/17 [Depo-Testosterone] Saccharomyces Boulardii [Florastor] 250 mg PO BID #20 capsule 05/18/17 10/19/17 Tamsulosin [Flomax] 0.4 mg PO BID #20 capsule 05/18/17 10/19/17 traMADol [Ultram] 50 mg PO Q4HR PRN #30 tablet 05/18/17 10/19/17 Naproxen 375 mg PO BID #20 tablet 02/19/18 Phenazopyridine HCl 100 mg PO TID PRN #20 tablet 10/19/17 Sulfamethox/Trimeth 800/160 1 each PO BID #14 tablet 10/19/17 [Bactrim Ds 800/160] - Allergies Allergies/Adverse Reactions: Allergies Allergy/AdvReac Type Severity Reaction Status Date / Time amoxicillin trihydrate * AdvReac Unknown Verified 08/19/17 21:06 [From Augmentin] potassium clavulanate * AdvReac Unknown Verified 08/19/17 21:06 [From Augmentin] - Social History Does the pt smoke?: No Smoking Status: Never smoker Does the pt drink ETOH?: No Does the pt have substance abuse?: No - Immunizations Immunizations are current?: Yes - POLST Patient has POLST: No POLST Status: Full Code Results - Vitals Vitals: Vital Signs - 24 hr 10/26/17 10/26/17 10/26/17 11:04 12:33 14:00 Temperature 37.2 C Heart Rate 84 80 74 Respiratory 18 24 14 Rate Blood Pressure 123/66 O2 Saturation 93 93 10/26/17 10/26/17 10/26/17 15:30 15:36 16:35 Temperature Heart Rate 78 81 83 Respiratory 20 12 18 Rate Blood Pressure 110/73 111/67 O2 Saturation 92 92 Oxygen O2 Source Nasal cannula - Labs Labs: Laboratory Tests 10/26/17 10/26/17 10/26/17 12:46 12:46 12:46 WBC 14.5 H RBC 5.28 Hgb 15.6 Hct 45.8 MCV 86.7 MCH 29.7 MCHC 34.2 RDW 16.2 H Plt Count 270 MPV 7.7 Neut # 12.1 H Lymph # 0.8 L [place] # 0.4 Eos # 1.1 H Baso # 0.1 Absolute Nucleated RBC 0.00 Nucleated RBC % 0.0 D-Dimer Sodium 135 Potassium 4.3 Chloride 100 L Carbon Dioxide 24 Anion Gap 11.0 BUN 20 Creatinine 1.3 H Estimated GFR (MDRD) 55 L Glucose 122 H Calcium 8.6 Total Bilirubin 1.1 H AST 56 H ALT 88 H Alkaline Phosphatase 44 Troponin I < 0.04 Total Protein 7.0 Albumin 3.2 Globulin 3.8 Albumin/Globulin Ratio 0.8 L Lipase 16 L 10/26/17 12:46 WBC RBC Hgb Hct MCV MCH MCHC RDW Plt Count MPV Neut # Lymph # [place] # Eos # Baso # Absolute Nucleated RBC Nucleated RBC % D-Dimer 757.4 H Sodium Potassium Chloride Carbon Dioxide Anion Gap BUN Creatinine Estimated GFR (MDRD) Glucose Calcium Total Bilirubin AST ALT Alkaline Phosphatase Troponin I Total Protein Albumin Globulin Albumin/Globulin Ratio Lipase PD MEDICAL DECISION MAKING - ED course Complexity details: re-evaluated patient (His oxygen saturations are anywhere from 83-88% on room air post nebulizer treatments. He does have considerable pneumonia on x-ray. He did get a CT of the chest which did not show any emboli but it was consistent with pneumonia. He is needing oxygen requirements which is not his baseline, he usually does not need oxygen. He was given nebulizer treatments, IV antibiotics, steroids. I talked with the hospitalist to admit the patient for further care.) Departure - Departure Disposition: 66 [facility] DC/Xfer Clinical Impression: Hypoxia Pneumonia Qualifiers: Pneumonia type: due to unspecified organism Laterality: right Lung location: upper lobe of lung Qualified Code(s): J18.1 - Lobar pneumonia, unspecified organism Dyspnea Qualifiers: Dyspnea type: shortness of breath Qualified Code(s): R06.02 - Shortness of breath; R06.00 - Dyspnea, unspecified; R06.01 - Orthopnea Clinical Impression: (Ruled Out): Pulmonary emboli Condition: Stable Record reviewed to determine appropriate education?: Yes
[2017-10-26 13:06] LABS: ALBUMIN 3.2 g/dL (3.2-5.5); ALBUMIN/GLOBULIN RATIO 0.8 (1.0-2.2); BILIRUBIN,TOTAL 1.1 mg/dL (0.2-1.0); CALCIUM 8.6 mg/dL (8.5-10.3); CREATININE 1.3 mg/dL (0.6-1.2)
[2017-10-26] MEDS ORDERED: HYDROcod/ACETAM 5/325 MG TABLET PO STA (13:13)
[2017-10-26] MEDS ORDERED: DEXAMETHASONE 10 MG/ML VIAL PO STA (13:13)
[2017-10-26] MEDS ORDERED: ALBUTEROL NEB 2.5 MG/3 ML INH STA ×3 (13:13→16:40)
[2017-10-26] MEDS ORDERED: AZITHROMYCIN 250 MG TABLET PO STA (13:13)
[2017-10-26] MEDS ORDERED: BENZONATATE 100 MG CAPSULE PO STA (13:13)
[2017-10-26] MEDS ORDERED: cefTRIAXone 1 GM in SODIUM CHLORIDE 0.9% MINIBAG 100 ML IV STA ×2 (14:33→16:56)
[2017-10-26] MEDS ORDERED: IOPAMIDOL-300 100 ML VIAL ONE ×2 (14:53→15:15)
--- NOTE | 2017-10-26 16:07 | CT Preliminary Report ---
Exam: CT CHEST ANGIO (PE) IMPRESSION: 1. No evidence of pulmonary embolus, aortic aneurysm or dissection. 2. Extensive bilateral upper lobe consolidative and groundglass opacities which extend peripherally t o the right and left midlung bilaterally. Sparing of the lower lungs. 3. Small pleural effusions. 4. Cardiomegaly. Mild coronary artery atherosclerosis. 5. Numerous subcentimeter mediastinal and hilar lymph nodes possibly reactive. [facility] SITE ID: [id number]
--- NOTE | 2017-10-26 16:17 | CT Report ---
EXAM: CT ANGIOGRAM CHEST EXAM DATE: 10/26/2017 03:30 PM. CLINICAL HISTORY: Dyspnea and pneumonia, with elevated D-dimer. COMPARISON: 10/26/2017. 05/13/2017. TECHNIQUE: Routine helical imaging was performed through the chest in the pulmonary arterial phase. I V Contrast: 80 mL of Isovue-300. Reconstructions: Coronal 3-D MIP reconstructions.Sagittal and deng l. In accordance with CT protocol optimization, one or more of the following dose reduction techniques w ere utilized for this exam: automated exposure control, adjustment of mA and/or KV based on patient s ize, or use of iterative reconstructive technique. FINDINGS: Pulmonary Arteries: Diagnostic quality: Adequate through the segmental arteries. No evidence for acute or chronic pulmona ry emboli. Maximal size of the mid main pulmonary outflow tract is 3 cm. Lungs/Pleura: Extensive bilateral upper lobe consolidative and groundglass opacities as well as septa l thickening extending to the mid lungs bilaterally with relative extend peripherally in the mid lung s. Upper lobe bronchial dilatation also present in the lower lobe, although less prominent. There are small pleural effusions. Mediastinum: Cardiomegaly. Coronary artery calcified plaque. Numerous largely subcentimeter mediastin al and lymph nodes. Visualized thyroid gland is unremarkable. Trace pericardial effusion. Thoracic Aorta: Normal-caliber thoracic aorta. No aneurysm. No dissection. Upper Abdomen: The spleen is enlarged measuring 15 cm. Included portions of the liver are unremarkabl e. No splenic or pancreatic lesions. Included portions of the pancreas, gallbladder, adrenals, and ki dneys are unremarkable. A portion of the kidneys are unremarkable. Included portions of the small bow el, colon, and stomach are unremarkable. Other: Degenerative changes of the thoracic spine. No acute osseous abnormalities. IMPRESSION: 1. No evidence of pulmonary embolus, aortic aneurysm or dissection. 2. Extensive bilateral upper lobe consolidative and groundglass opacities which extend peripherally t o the right and left midlung bilaterally. Sparing of the lower lungs. 3. Small pleural effusions. 4. Cardiomegaly. Mild coronary artery atherosclerosis. 5. Numerous subcentimeter mediastinal and hilar lymph nodes, possibly reactive. [facility] Referring Provider Line: [phone] SITE ID: [id number]
[2017-10-26] MEDS ORDERED: oxyCODONE 5 MG TABLET PO PRN (16:50)
[2017-10-26] MEDS ORDERED: PROCHLORPERAZINE 10 MG/2 ML VIAL IVP PRN (16:50)
[2017-10-26] MEDS ORDERED: IOPAMIDOL-300 100 ML VIAL IVP ONE (16:55)
[2017-10-26] MEDS ORDERED: AZITHROMYCIN INJ 500 MG in SODIUM CHLORIDE 0.9% 250 ML IV STA (16:56)
--- NOTE | 2017-10-26 17:31 | HISTORY & PHYSICAL EXAMINATION ---
Chief Complaint - Chief Complaint Chief Complaint: Shortness of breath History of Present Illness - Admitted From Admitted From:: Home - History Obtained From History obtained from: Patient and Dr. Zelaya Exam Limitations: None - History of Present Illness HPI Comment/Other: Mr. Eddie bloom is a 67-year-old gentleman with a history of shortness of breath and upper respiratory infection symptoms for about 2 weeks. He came to the [facility] emergency department about 1 week ago and was placed on Bactrim to cover both a sinusitis and a possible urinary tract infection however he is continued to worsen since that time until today when he woke up very short of breath and decided to come back to the emergency department.A chest x-ray in the emergency department found him to have a right-sided pneumonia with consolidations more at the apices. He also has an elevated white blood cell count of 14,000 and he was satting at 88% on room air initially. Patient also has a history of pulmonary emboli and a CT angiogram was negative for any pulmonary emboli at this time. The patient is anticoagulated. History - Past Medical History Cardiovascular: reports: Hypertension Respiratory: reports: Pneumonia Endocrine/Autoimmune: reports: HyPOthyroidism GI: reports: GERD : reports: Benign prostate hypertrophy HEENT: reports: Chronic vision loss, Chronic hearing loss, Other Psych: reports: Post traumatic stress disorder, Other Musculoskeletal: reports: Osteoarthritis Derm: reports: Other MRSA Hx?: No - Past Surgical History General: reports: Other Ortho: reports: Arthroscopic surgery HEENT: reports: Tonsil/Adenoidectomy, Other - Family & Social History Family History: Mother: , Father: , COPD/Emphysema Family History Comment/Other: This patient does not know how either of his parents as he was estranged from them. He says that there are not no incidences of cancer, hypertension, hypercholesterolemia, myocardial infarction , or diabetes in the family that he is aware of. Living arrangement: At home Living Situation: Alone - Substance History Use: Uses substance without health or social issues: Alcohol Abuse: Recurrent use of substance despite neg consequences: NONE Dependence: Experiences withdrawal or developed tolerances: NONE - POLST Patient has POLST: No POLST Status: Full Code Meds/Allgy - Home Medications Home Medications: Ambulatory Orders Medication Instructions Recorded Confirmed Lisinopril 20 mg PO DAILY 08/07/15 10/19/17 Thyroid,Pork [[place] Thyroid] 30 mg PO DAILY 08/07/15 10/19/17 Prazosin HCl 5 mg PO DAILY 04/20/17 10/19/17 Zolpidem [Ambien] 2.5 mg PO HS PRN 04/20/17 10/19/17 Acetaminophen [Tylenol] 650 - 975 mg PO Q4HR PRN #0 tablet 05/01/17 10/19/17 [place]-3 Acid Ethyl Esters [Lovaza] 1 gm PO DAILY capsule 05/01/17 10/19/17 Aspirin [Aspir-Low] 81 mg PO DAILY 05/13/17 10/19/17 Testosterone Cypionate 200 mg IM UD 05/13/17 10/19/17 [Depo-Testosterone] Saccharomyces Boulardii [Florastor] 250 mg PO BID #20 capsule 05/18/17 10/19/17 Tamsulosin [Flomax] 0.4 mg PO BID #20 capsule 05/18/17 10/19/17 traMADol [Ultram] 50 mg PO Q4HR PRN #30 tablet 05/18/17 10/19/17 Naproxen 375 mg PO BID #20 tablet 10/19/17 Phenazopyridine HCl 100 mg PO TID PRN #20 tablet 10/19/17 Sulfamethox/Trimeth 800/160 1 each PO BID #14 tablet 10/19/17 [Bactrim Ds 800/160] - Allergies Allergies/Adverse Reactions: Allergies Allergy/AdvReac Type Severity Reaction Status Date / Time amoxicillin trihydrate * AdvReac Unknown Verified 08/19/17 21:06 [From Augmentin] potassium clavulanate * AdvReac Unknown Verified 08/19/17 21:06 [From Augmentin] Review of Systems - Constitutional Constitutional: reports: Fatigue, Poor appetite. denies: Fever, Chills, Malaise , Weakness - Eyes Eyes: denies: Pain, Irritation, Amaurosis, Blurred vision - Ears, Nose & Throat Ears, Nose & Throat: denies: Ear pain, Hearing loss, Hearing aids, Tinnitus, Vertigo, Nasal pain, Nasal discharge - Cardiovascular Cariovascular: denies: Irregular heart rate, Palpitations, Chest pain, Edema - Respiratory Respiratory: reports: Cough, Sputum production, SOB with exertion. denies: Wheezing, Snoring, Hemoptysis, Orthopnea, SOB at rest - Gastrointestinal Gastrointestinal: denies: Abdominal pain, Abdominal distention, Constipation, Diarrhea, Change in bowel habits, Rectal bleeding - Genitourinary Genitourinary: denies: Dysuria, Frequency, Urgency, Hematuria - Musculoskeletal Musculoskeletal: denies: Muscle pain, Back pain, Muscle aches, Stiffness - Integumentary Integumentary: denies: Rash, Pruritis, Lesions, Dryness - Neurological Neurological: denies: General weakness, Focal weakness, Headache, Dizziness - Psychiatric Psychiatric: denies: Depression, Anxiety, Suicidal, Hallucinations - Endocrine Endocrine: denies: Polyuria, Polydypsia, Polyphagia - Hematologic/Lymphatic Hematologic/Lymphatic: denies: Anemia, Petechiae, Blood clots, Lymphadenopathy - All Other Systems All Other Systems: reports: Reviewed and negative Exam - Vital Signs Reviewed Vital Signs: Yes - Physical Exam General Appearance: positive: No acute distress, Alert Eyes Bilateral: positive: Normal inspection, PERRL, EOMI, No lid inflammation, Conjunctivae nml, No scleral icterus ENT: positive: ENT inspection nml, Pharynx nml, No signs of dehydration Neck: positive: Nml inspection, Thyroid nml, No JVD, Trachea midline. negative : Thyromegaly Respiratory: positive: Chest non-tender, No respiratory distress, Breath sounds nml. negative: Wheezes, Rales, Rhonchi Cardiovascular: positive: Regular rate & rhythm, No murmur, No gallop Peripheral Pulses: positive: 1+ Abdomen: positive: Non-tender, No organomegaly, Nml bowel sounds, No distention. negative: Guarding, Rebound Back: positive: Nml inspection. negative: CVA tenderness (R), CVA tenderness (L ) Skin: positive: Color nml, No rash, Warm, Dry. negative: Cyanosis Extremities: positive: Non-tender, Full ROM, Nml appearance, No pedal edema Neurologic/Psychiatric: positive: Oriented x3, CN's nml (2-12), Motor nml, Sensation nml, Mood/affect nml Conclusion/Plan - Problem List (1) Pneumonia Conclusion/Plan: We will admit the patient to the medical surgical floor, start him on IV antibiotics, and will give him supplemental oxygen and bronchodilators as necessary. Will monitor his white blood cell count and get serial chest x-rays. Qualifiers: Pneumonia type: due to unspecified organism Laterality: right Lung location: upper lobe of lung Qualified Code(s): J18.1 - Lobar pneumonia, unspecified organism (2) HTN (hypertension) Conclusion/Plan: Will controlled, continue lisinopril. (3) Hypothyroidism Conclusion/Plan: I will obtain a TSH level and continue the patient on his [place] Thyroid. (4) Hypercholesteremia Conclusion/Plan: We will continue the patient on his omega-3 acid tablets. (5) Acute kidney injury (nontraumatic) Conclusion/Plan: Likely related to dehydration, creatinine is only mildly elevated at 1.3. We will rehydrate the patient and monitor his electrolytes. - Lab Results Fish Bones: 10/26/17 12:46 10/26/17 12:46 - Diagnostic Imaging Results Diagnostic Imaging Results: positive: Final report reviewed Diagnostic Imaging Results Comments: EXAM: CHEST RADIOGRAPHY EXAM DATE: 10/26/2017 11:48 AM. CLINICAL HISTORY: Shortness of breath, cough, chest pain x2 weeks. COMPARISON: Chest radiographs 09/07/2014. Report of CT angiogram of the chest . TECHNIQUE: 2 views. FINDINGS: Lungs/Pleura: There are coarse interstitial and patchy opacities in the bilateral upper lungs and lateral periphery of the right midlung. Minimal bibasilar opacities are present. There are small bilateral pleural effusions. No pneumothorax. Mediastinum: Heart and mediastinal contours are unremarkable. Other: No acute osseous abnormality. IMPRESSION: 1. Coarse interstitial and patchy pulmonary opacities primarily in the bilateral upper lungs and periphery of the right mid lung, with minimal bibasilar opacities. Findings may represent sequela of pulmonary infarcts from the extensive bilateral pulmonary emboli reportedly seen on prior CT angiogram. Pneumonia is also in the differential. 2. Small bilateral pleural effusions EXAM: CT ANGIOGRAM CHEST EXAM DATE: 10/26/2017 03:30 PM. CLINICAL HISTORY: Dyspnea and pneumonia, with elevated D-dimer. COMPARISON: 10/26/2017. 05/13/2017. TECHNIQUE: Routine helical imaging was performed through the chest in the pulmonary arterial phase. IV Contrast: 80 mL of Isovue-300. Reconstructions: Coronal 3-D MIP reconstructions.Sagittal and coronal. In accordance with CT protocol optimization, one or more of the following dose reduction techniques were utilized for this exam: automated exposure control, adjustment of mA and/or KV based on patient size, or use of iterative reconstructive technique. FINDINGS: Pulmonary Arteries: Diagnostic quality: Adequate through the segmental arteries. No evidence for acute or chronic pulmonary emboli. Maximal size of the mid main pulmonary outflow tract is 3 cm. Lungs/Pleura: Extensive bilateral upper lobe consolidative and groundglass opacities as well as septal thickening extending to the mid lungs bilaterally with relative extend peripherally in the mid lungs. Upper lobe bronchial dilatation also present in the lower lobe, although less prominent. There are small pleural effusions. Mediastinum: Cardiomegaly. Coronary artery calcified plaque. Numerous largely subcentimeter mediastinal and lymph nodes. Visualized thyroid gland is unremarkable. Trace pericardial effusion. Thoracic Aorta: Normal-caliber thoracic aorta. No aneurysm. No dissection. Upper Abdomen: The spleen is enlarged measuring 15 cm. Included portions of the liver are unremarkable. No splenic or pancreatic lesions. Included portions of the pancreas, gallbladder, adrenals, and kidneys are unremarkable. A portion of the kidneys are unremarkable. Included portions of the small bowel, colon, and stomach are unremarkable. Other: Degenerative changes of the thoracic spine. No acute osseous abnormalities. IMPRESSION: 1. No evidence of pulmonary embolus, aortic aneurysm or dissection. 2. Extensive bilateral upper lobe consolidative and groundglass opacities which extend peripherally to the right and left midlung bilaterally. Sparing of the lower lungs. 3. Small pleural effusions. 4. Cardiomegaly. Mild coronary artery atherosclerosis. 5. Numerous subcentimeter mediastinal and hilar lymph nodes, possibly reactive. - EKG Results EKG Interpreted Independently: Yes EKG Comparison: Old EKG unavailable EKG Findings: NSR Core Measures - Anticipated LOS I expect patient to be DC'd or transferred within 96 hours.: Yes - DVT/VTE - Prophylaxis VTE/DVT Device ordered at admit?: Yes
[2017-10-26] MEDS: SODIUM CHLORIDE FLUSH 0.9% 10 ML SYRINGE IVP SCH ×2 (18:08→23:43)
[2017-10-26] MEDS: SACCHAROMYCES BOULARDII 250 MG CAPSULE PO SCH (20:21)
[2017-10-26] MEDS: TAMSULOSIN 0.4 MG CAPSULE PO SCH (20:21)
[2017-10-26] MEDS: guaiFENesin/CODEINE 5 ML UDC PO PRN (20:21)
[2017-10-26] MEDS ORDERED: PRAZOSIN 1 MG CAPSULE PO SCH (21:41)
[2017-10-27] MEDS: TEMAZEPAM 15 MG CAPSULE PO PRN ×2 (00:27→22:45)
[2017-10-27] MEDS: guaiFENesin/CODEINE 5 ML UDC PO PRN ×3 (04:08→20:21)
[2017-10-27] MEDS: TAMSULOSIN 0.4 MG CAPSULE PO SCH ×2 (08:42→20:22)
[2017-10-27] MEDS: ASPIRIN EC 81 MG TABLET PO SCH (08:42)
[2017-10-27] MEDS: SACCHAROMYCES BOULARDII 250 MG CAPSULE PO SCH (08:42)
[2017-10-27] MEDS: SODIUM CHLORIDE FLUSH 0.9% 10 ML SYRINGE IVP SCH ×3 (08:42→23:54)
[2017-10-27] MEDS: THYROID 60 MG TABLET PO SCH (08:42)
[2017-10-27] MEDS: cefTRIAXone 1 GM in SODIUM CHLORIDE 0.9% MINIBAG 100 ML IV SCH (08:43)
[2017-10-27] MEDS: POLYETHYLENE GLYCOL 3350 17 GM PACKET PO SCH (08:56)
[2017-10-27] MEDS ORDERED: PRAZOSIN 1 MG CAPSULE PO SCH ×2 (09:00→21:00)
[2017-10-27] MEDS: AZITHROMYCIN INJ 500 MG in SODIUM CHLORIDE 0.9% 250 ML IV SCH (09:27)
[2017-10-27] MEDS: LISINOPRIL 20 MG TABLET PO SCH (13:58)
--- NOTE | 2017-10-27 14:38 | PROVIDER PROGRESS NOTE ---
Assessment/Plan - Problem List (1) Pneumonia Qualifiers: Pneumonia type: due to unspecified organism Laterality: right Lung location: upper lobe of lung Qualified Code(s): J18.1 - Lobar pneumonia, unspecified organism Assessment/Plan: Continue with iv antibiotics and nebs. (2) HTN (hypertension) Qualifiers: Hypertension type: essential hypertension Qualified Code(s): I10 - Essential (primary) hypertension Assessment/Plan: Meds on hold today due to low BP. (3) Hypothyroidism Assessment/Plan: Awaiting TSH to confirm if replacement [place] thyroid is correct. - Current Meds Current Meds: Current Medications Generic Name Dose Route Start Last Admin Trade Name Freq PRN Reason Stop Dose Admin Aspirin 81 mg 10/27/17 09:00 10/27/17 08:42 Ecotrin PO 81 mg DAILY RASHAUN Administration Guaifenesin/Codeine Phosphate 5 ml 10/26/17 20:10 10/27/17 14:07 Robitussin Ac PO 5 ml Q6HR PRN Administration Cough Azithromycin 500 mg/ Sodium 250 mls @ 250 mls/hr 10/27/17 09:00 10/27/17 10: 30 Chloride IV Infused DAILY RASHAUN Infusion Ceftriaxone Sodium 1 gm/ 100 mls @ 200 mls/hr 10/27/17 09:00 10/27/17 09:15 Sodium Chloride IV Infused DAILY RASHAUN Infusion Lisinopril 20 mg 10/27/17 09:00 10/27/17 13:58 Zestril PO Not Given DAILY RASHAUN Polyethylene Glycol 17 gm 10/27/17 09:00 10/27/17 08:56 Miralax PO Not Given DAILY RASHAUN Saccharomyces Boulardii 250 mg 10/26/17 21:00 10/27/17 08:42 Florastor PO 250 mg BID RASHAUN Administration Sodium Chloride 10 ml 10/26/17 17:00 10/27/17 08:42 Normal Saline Flush 0.9% IVP 10 ml 0100,0900,1700 RASHAUN Administration Tamsulosin HCl 0.4 mg 10/26/17 21:00 10/27/17 08:42 Flomax PO 0.4 mg BID RASHAUN Administration Temazepam 15 mg 10/26/17 16:50 10/27/17 00:27 Restoril PO 15 mg QPM PRN Administration Insomnia Thyroid 30 mg 10/27/17 09:00 10/27/17 08:42 [place] Thyroid PO 30 mg DAILY RASHAUN Administration - Lab Result Fish Bone Diagrams: 10/26/17 12:46 10/26/17 12:46 Subjective - Subjective Patient Reports: Feeling Better, Other ("Only coughing when takes a deep breath. ") Nursing Reports: No Complaints Objective Vital Signs: Vital Signs - 24 hr 10/26/17 10/26/17 10/26/17 17:46 17:50 20:26 Temperature 36.6 C 36.4 C L Heart Rate 84 Heart Rate [ 75 78 Brachial] Respiratory 20 20 16 Rate Blood Pressure 119/76 Blood Pressure 111/70 111/70 [Right Brachial artery] O2 Saturation 83 L 95 94 10/27/17 10/27/17 10/27/17 00:00 04:00 07:55 Temperature 36.5 C 36.3 C L 36.4 C L Heart Rate Heart Rate [ 70 67 65 Brachial] Respiratory 18 16 20 Rate Blood Pressure Blood Pressure 97/58 L 98/49 L 96/56 L [Right Brachial artery] O2 Saturation 92 95 92 10/27/17 13:15 Temperature 36.7 C Heart Rate Heart Rate [ 74 Brachial] Respiratory 20 Rate Blood Pressure Blood Pressure 101/52 L [Right Brachial artery] O2 Saturation 92 Oxygen O2 Source Room air I&O (Last 24 Hrs): Intake and Output Totals x24h 10/25/17 10/26/17 10/27/17 23:59 23:59 23:59 Intake Total 300 790 Output Total 300 400 Balance 0 390 General: Alert, Oriented x3 HEENT: Mucous membr. moist/pink Neck: Supple, No JVD Neuro: Non Focal Cardiovascular: Regular rate, No murmurs Respiratory: Breath sounds nml Abdomen: Soft Extremities: No edema - Results Results: Laboratory Results WBC 14.5 x10^3/uL (4.8-10.8) H 10/26/17 12:46 RBC 5.28 10^6/uL (4.70-6.10) 10/26/17 12:46 Hgb 15.6 g/dL (14.0-18.0) 10/26/17 12:46 Hct 45.8 % (42.0-52.0) 10/26/17 12:46 MCV 86.7 fL (80.0-94.0) 10/26/17 12:46 MCH 29.7 pg (27.0-31.0) 10/26/17 12:46 MCHC 34.2 g/dL (32.0-36.0) 10/26/17 12:46 RDW 16.2 % (12.0-15.0) H 10/26/17 12:46 Plt Count 270 10^3/uL (130-450) 10/26/17 12:46 MPV 7.7 fL (7.4-11.4) 10/26/17 12:46 Neut # 12.1 10^3/uL (1.5-6.6) H 10/26/17 12:46 Lymph # 0.8 10^3/uL (1.5-3.5) L 10/26/17 12:46 [place] # 0.4 10^3/uL (0.0-1.0) 10/26/17 12:46 Eos # 1.1 10^3/uL (0.0-0.7) H 10/26/17 12:46 Baso # 0.1 10^3/uL (0.0-0.1) 10/26/17 12:46 Absolute Nucleated RBC 0.00 x10^3/uL 10/26/17 12:46 Nucleated RBC % 0.0 /100WBC 10/26/17 12:46 D-Dimer 757.4 ng/mL (200.0-255.0) H 10/26/17 12:46 Sodium 135 mmol/L (135-145) 10/26/17 12:46 Potassium 4.3 mmol/L (3.5-5.0) 10/26/17 12:46 Chloride 100 mmol/L (101-111) L 10/26/17 12:46 Carbon Dioxide 24 mmol/L (21-32) 10/26/17 12:46 Anion Gap 11.0 (6-13) 10/26/17 12:46 BUN 20 mg/dL (6-20) 10/26/17 12:46 Creatinine 1.3 mg/dL (0.6-1.2) H 10/26/17 12:46 Estimated GFR (MDRD) 55 (>89) L 10/26/17 12:46 Glucose 122 mg/dL (70-100) H 10/26/17 12:46 Calcium 8.6 mg/dL (8.5-10.3) 10/26/17 12:46 Total Bilirubin 1.1 mg/dL (0.2-1.0) H 10/26/17 12:46 AST 56 IU/L (10-42) H 10/26/17 12:46 ALT 88 IU/L (10-60) H 10/26/17 12:46 Alkaline Phosphatase 44 IU/L (42-121) 10/26/17 12:46 Troponin I < 0.04 ng/mL (<0.49) 10/26/17 12:46 Total Protein 7.0 g/dL (6.7-8.2) 10/26/17 12:46 Albumin 3.2 g/dL (3.2-5.5) 10/26/17 12:46 Globulin 3.8 g/dL (2.1-4.2) 10/26/17 12:46 Albumin/Globulin Ratio 0.8 (1.0-2.2) L 10/26/17 12:46 Lipase 16 U/L (22-51) L 10/26/17 12:46 - Procedures Procedures: Procedures REPLACE OF L KNEE JT WITH SYNTH SUB, CEMENT, OPEN APPROACH (04/28/17)
[2017-10-27] MEDS ORDERED: OXYMETAZOLINE NASAL SPRAY NAS PRN (17:59)
[2017-10-27] MEDS: BENZOCAINE/MENTHOL LOZENGE MM PRN ×2 (18:14→22:24)
[2017-10-27] MEDS: methylPREDNISolone SUCCINATE 40 MG/ML VIAL IVP SCH ×2 (18:15→22:10)
[2017-10-27] MEDS: SODIUM CHLORIDE FLUSH 0.9% 10 ML SYRINGE IVP PRN ×2 (18:17→22:11)
[2017-10-27] MEDS: IPRATROPIUM/ALBUTEROL 3 ML NEB INH PRN (18:40)
[2017-10-28 04:51] LABS: BASOPHILS % (AUTO) 1.6 %; EOSINOPHILS % (AUTO) 0.4 %; HGB - HEMOGLOBIN 14.3 g/dL (14.0-18.0); MEAN CORPUSCULAR HEMOGLOBIN 29.3 pg (27.0-31.0); MEAN CORPUSCULAR HGB CONC 33.4 g/dL (32.0-36.0); MEAN CORPUSCULAR VOLUME 87.6 fL (80.0-94.0); MONOCYTES % (AUTO) 2.4 %; NEUTROPHILS % (AUTO) 87.6 %; PLT - PLATELET COUNT 343 10^3/uL (130-450); RED BLOOD COUNT 4.91 10^6/uL (4.70-6.10); RED CELL DISTRIBUTION WIDTH 16.2 % (12.0-15.0); WHITE BLOOD COUNT 13.6 x10^3/uL (4.8-10.8)
[2017-10-28 04:56] LABS: ABNORMAL LYMPHS % (MANUAL) 0 %
[2017-10-28 06:43] LABS: BAND NEUTROPHILS % (MANUAL) 1 %; EOSINOPHILS # (MANUAL) 0.1 10^3/uL (0-0.7); LYMPHOCYTES # (MANUAL) 1.9 10^3/uL (1.5-3.5); LYMPHOCYTES % (MANUAL) 7 %; MONOCYTES # (MANUAL) 0.1 10^3/uL (0.0-1.0); NEUTROPHILS # (MANUAL) 11.4 10^3/uL (1.5-6.6); NEUTROPHILS % (MANUAL) 83 %
[2017-10-28 06:44] LABS: DIFFERENTIAL COMMENT MANUAL DIFFERENTIAL; PLATELET ESTIMATE, MANUAL NORMAL (130-450,000) (NORMAL); PLATELET MORPHOLOGY NORMAL APPEARANCE (NORMAL); RBC MORPHOLOGY (MULTIPLE) NORMAL APPEARANCE (NORMAL)
[2017-10-28] MEDS: methylPREDNISolone SUCCINATE 40 MG/ML VIAL IVP SCH (07:41)
[2017-10-28] MEDS: SODIUM CHLORIDE FLUSH 0.9% 10 ML SYRINGE IVP SCH (07:44)
[2017-10-28 07:57] VITALS: BP 104/58
[2017-10-28] MEDS ORDERED: SACCHAROMYCES BOULARDII 250 MG CAPSULE PO SCH (08:00)
--- NOTE | 2017-10-28 09:10 | Discharge Plan ---
Discharge Plan Disposition: 01 Home, Self Care Condition: Stable Prescriptions: guaiFENesin/CODEINE [Robitussin AC] 5 ml PO Q6HR PRN #30 ml PRN Reason: Cough Diet: Low Sodium Activity Restrictions: Activity as Tolerated Shower Restrictions: No Driving Restrictions: No Instruction Topics: Pneumonia Tx Additional Instructions or Follow Up instructions: Resume all your pre-hospital medications. Take the antibiotic prescription til all pills are done. Use the cough suppressant liquid as needed. See your doctor in follow-up in 2-3 weeks. No Smoking: If you smoke, Please STOP! Call for help. Follow-up with: Gilmar Morales DO [Primary Care Provider] -
[2017-10-28] MEDS: cefTRIAXone 1 GM in SODIUM CHLORIDE 0.9% MINIBAG 100 ML IV SCH (09:15)
[2017-10-28] MEDS: TAMSULOSIN 0.4 MG CAPSULE PO SCH (09:19)
[2017-10-28] MEDS: THYROID 60 MG TABLET PO SCH (09:19)
[2017-10-28] MEDS: LISINOPRIL 20 MG TABLET PO SCH (09:19)
[2017-10-28] MEDS: POLYETHYLENE GLYCOL 3350 17 GM PACKET PO SCH (09:19)
[2017-10-28] MEDS: ASPIRIN EC 81 MG TABLET PO SCH (09:19)
[2017-10-28] MEDS: BENZOCAINE/MENTHOL LOZENGE MM PRN (09:51)
[2017-10-28] MEDS: AZITHROMYCIN INJ 500 MG in SODIUM CHLORIDE 0.9% 250 ML IV SCH (10:00)
[2017-10-28] MEDS: IPRATROPIUM/ALBUTEROL 3 ML NEB INH PRN (10:30)
--- NOTE | 2017-11-10 03:33 | DISCHARGE SUMMARY ---
Physician: Cristal Arrieta MD DATE OF ADMISSION: 10/26/2017 DATE OF DISCHARGE: 10/28/2017 HISTORY OF PRESENT ILLNESS: This is a 67-year-old, white male with a history of hypertension, hypothyroidism, posttraumatic stress disorder, osteoarthritis, BPH, GERD, who presented with a 2-week history of shortness of breath and upper respiratory infection. One week previously he had been put on Bactrim for sinusitis and a possible UTI. On the day of admission, he awoke severely short of breath at rest and, in the emergency room, was found to have an elevated white count of 14,000, saturation of 88% on room air and right upper lobe pneumonia. The patient has a history of pulmonary emboli and a CT angiogram was negative for any pulmonary emboli. The patient was anticoagulated before admission. HOSPITAL COURSE AND DISCHARGE DIAGNOSES 1. Community-acquired pneumonia. There were no sputum samples available for culture. The patient was started on empiric antibiotics and then transitioned to empiric Levaquin 750 mg daily for a 7-day outpatient course of treatment, as well as Robitussin A-C for treatment of his symptoms. With this management, he improved quickly. 2. Hypertension. The patient's blood pressure was controlled on current medications. 3. Hypothyroidism. TSH level was normal at 1.54. The patient was continued on his thyroid management while here. LABORATORIES AND IMAGING: Reviewed and summarized above. ALLERGIES 1. AMOXICILLIN. 2. POTASSIUM. 3. CLAVULANATE. MEDICATIONS AT DISCHARGE 1. Levaquin 750 mg p.o. daily for 7 days. 2. Lisinopril 20 mg p.o. daily. 3. Naprosyn 375 mg b.i.d. p.r.n. 4. Prazosin 5 mg p.o. daily. 5. Flomax 0.4 mg p.o. b.i.d. 6. Depo-Testosterone. 7. [place] Thyroid 30 mg p.o. daily. 8. Ambien 2.5 mg at bedtime p.r.n. insomnia. 9. Phenazopyridine 100 mg p.o. t.i.d. P.r.n. 10. Clomipramine 25 mg p.o. at bedtime. 11. Baby aspirin. 12. Ultram p.r.n. 13. Tylenol p.r.n. CONDITION AT DISCHARGE: Stable. PHYSICAL EXAMINATION AT DISCHARGE VITAL SIGNS: Blood pressure 104/58, afebrile, heart rate 69 in sinus rhythm, O2 saturation 94% on room air. HEENT: Unremarkable. NECK: Without JVD or carotid bruits. CHEST: Clear. HEART: Sounds normal. ABDOMEN: Soft, obese. EXTREMITIES: Without edema or rash. NEUROLOGIC: Grossly intact. CODE STATUS: FULL CODE. FOLLOWUP: With his PCP in 2-3 weeks. Time required to complete this entire discharge and dictation was 30 minutes. TD: 11/10/2017 03:32
== END 2017-10-28 12:30 | disposition home or self-care (01) | DRG 194 ==
LOC: ED 10:36 → MS2 16:50
PROVIDERS: ADMIT Hospitalist; ATTEND Internal Medicine
DX: R09.02 Hypoxemia (principal); J18.1 Lobar pneumonia, unspecified organism; N17.9 Acute kidney failure, unspecified; I10 Essential (primary) hypertension; E03.9 Hypothyroidism, unspecified; K21.9 Gastro-esophageal reflux disease without esophagitis; F43.10 Post-traumatic stress disorder, unspecified; N40.0 Benign prostatic hyperplasia without lower urinary tract symptoms; H54.7 Unspecified visual loss; H91.90 Unspecified hearing loss, unspecified ear; M19.90 Unspecified osteoarthritis, unspecified site; Z79.2 Long term (current) use of antibiotics; Z79.82 Long term (current) use of aspirin; Z79.899 Other long term (current) drug therapy; Z86.711 Personal history of pulmonary embolism; Z87.01 Personal history of pneumonia (recurrent)
CPT/HCPCS: 36415; 71046; 71275; 80048; 80053; 83690; 84443; 84484; 85025; 85379; 93005; 94640; 96365; 99284

== ENCOUNTER 2017-11-04 13:16 | Outpatient (CLI) | payer MEDICARE, OTHER | END 2017-11-04 13:17 | disposition home or self-care (01) | LOC: SC 13:16 | PROVIDERS: ATTEND Nurse Practitioner Family | DX: R09.02 Hypoxemia (principal); R06.83 Snoring; G47.61 Periodic limb movement disorder | CPT/HCPCS: 99214; G0463; 99212 ==

== ENCOUNTER 2018-01-31 09:30 | Emergency (ER) | payer MEDICARE, OTHER ==
[2018-01-31 09:54] LABS: BILIRUBIN,URINE NEGATIVE (NEGATIVE); GLUCOSE, URINE (UA) NEGATIVE (NEGATIVE); KETONES,URINE (UA) TRACE mg/dL (NEGATIVE); LEUKOCYTE ESTERASE, URINE NEGATIVE (NEGATIVE); NITRITE,URINE NEGATIVE (NEGATIVE); OCCULT BLOOD,URINE TRACE-INTA (NEGATIVE); PH,URINE 6.5 PH (5.0-7.5); PROTEIN,URINE NEGATIVE (NEGATIVE); UROBILINOGEN,URINE 0.2 (NORMAL) E.U./dL (NORMAL)
[2018-01-31 09:55] LABS: CLARITY,URINE CLEAR (CLEAR)
[2018-01-31] MEDS ORDERED: KETOROLAC 60 MG/2 ML VIAL IM STA (11:32)
[2018-01-31] MEDS ORDERED: PHENAZOPYRIDINE 100 MG TABLET PO STA (11:32)
--- NOTE | 2018-01-31 11:32 | ED Physician Documentation ---
History of Present Illness - Stated complaint Stated Complaint: MALE - Chief complaint Chief Complaint: General - Additonal information Additional information: hx from pt s/p penile implant 12/[address] Melendez urology [place] today having severe diff urinating, urinary freq, bladder spasms no fever Review of Systems Constitutional: denies: Fever GI: reports: Abdominal Pain (bladder) : reports: Other (penile pain). denies: Testicular pain PD PAST MEDICAL HISTORY - Past Medical History Cardiovascular: Hypertension Respiratory: Pneumonia Endocrine/Autoimmune: HyPOthyroidism GI: GERD : Benign prostate hypertrophy HEENT: Chronic vision loss, Chronic hearing loss, Other Psych: Post traumatic stress disorder, Other Musculoskeletal: Osteoarthritis Derm: Other - Past Surgical History Past Surgical History: Yes General: Other Ortho: Arthroscopic surgery HEENT: Tonsil/Adenoidectomy, Other - Present Medications Home Medications: Ambulatory Orders Medication Instructions Recorded Confirmed Lisinopril 20 mg PO DAILY 08/07/15 10/27/17 Thyroid,Pork [[place] Thyroid] 30 mg PO DAILY 08/07/15 10/27/17 Prazosin HCl 5 mg PO DAILY 04/20/17 10/27/17 Aspirin [Aspir-Low] 81 mg PO DAILY 05/13/17 10/27/17 Testosterone Cypionate 200 mg IM Q30D 05/13/17 10/27/17 [Depo-Testosterone] traMADol [Ultram] 50 mg PO Q4HR PRN #30 tablet 05/18/17 10/27/17 Acetaminophen [Tylenol] 650 mg PO Q4HR PRN 10/27/17 10/27/17 Phenazopyridine [Pyridium] 100 mg PO Q8H PRN #9 tablet 01/31/18 - Allergies Allergies/Adverse Reactions: Allergies Allergy/AdvReac Type Severity Reaction Status Date / Time amoxicillin trihydrate * AdvReac Unknown Verified 01/31/18 09:39 [From Augmentin] potassium clavulanate * AdvReac Unknown Verified 01/31/18 09:39 [From Augmentin] - Social History Does the pt smoke?: No Smoking Status: Never smoker Does the pt drink ETOH?: No Does the pt have substance abuse?: No - Immunizations Immunizations are current?: Yes - POLST Patient has POLST: No POLST Status: Full Code PD ED PE NORMAL - Vitals Vital signs reviewed: Yes - Abdomen Abdomen: Soft, Other (bladder TTP) - Male Male : Other (scrotal incision with skin bulges but no erythema or dehisc, no scrotal test TTP, penil implant in inflated, cir, no lesions, no dc, diffusely TTP, pt is very uncomfotable and restless) Results - Vitals Vitals: Vital Signs - 24 hr 01/31/18 01/31/18 09:37 12:46 Temperature 36.6 C 36.4 C L Heart Rate 76 82 Respiratory 18 16 Rate Blood Pressure 155/82 H 134/78 H O2 Saturation 100 96 Oxygen O2 Source Room air - Labs Labs: Laboratory Tests 01/31/18 09:45 Urine Color YELLOW Urine Clarity CLEAR Urine pH 6.5 Ur Specific [place] 1.015 Urine Protein NEGATIVE Urine Glucose (UA) NEGATIVE Urine Ketones TRACE Urine Occult Blood TRACE-INTA Urine Nitrite NEGATIVE Urine Bilirubin NEGATIVE Urine Urobilinogen 0.2 (NORMAL) Ur Leukocyte Esterase NEGATIVE Ur Microscopic Review NOT INDICATED Urine Culture Comments NOT INDICATED PD MEDICAL DECISION MAKING - ED course ED course: d/w urology if able to urinate and only 20 retained and no infection rec pyridium dc and fup in clinic if not better with pyridum will also consider trying B&O supp sx improved not reslved pt absolutely refuses to consider a suppository so will dc Departure - Departure Disposition: 01 Home, Self Care Clinical Impression: Dysuria Follow-Up: [facility] [Provider Group] Prescriptions: Phenazopyridine [Pyridium] 100 mg PO Q8H PRN #9 tablet PRN Reason: painful urination Comments: There is no urine infection. You are able to mostly empty your bladder I spoke to your urologist and she advises that if there is not infection and no major amount of retention of urine it is OK for you to go home with pyridium to help ease the bladder spasms She would like to see you in clinic next week for a recheck Return if worse
[2018-01-31 12:47] VITALS: BP 134/78
== END 2018-01-31 13:08 | disposition home or self-care (01) ==
LOC: ED 09:30
DX: R30.0 Dysuria (principal); N32.89 Other specified disorders of bladder; Z96.89 Presence of other specified functional implants; I10 Essential (primary) hypertension; E03.9 Hypothyroidism, unspecified; K21.9 Gastro-esophageal reflux disease without esophagitis; N40.0 Benign prostatic hyperplasia without lower urinary tract symptoms; M19.90 Unspecified osteoarthritis, unspecified site
CPT/HCPCS: 81003; 96372; 99283; A9270; 81001; 87086

== ENCOUNTER 2018-06-18 14:54 | Outpatient (CLI) | payer MEDICARE, OTHER ==
--- NOTE | 2018-06-19 21:55 | MRI Report ---
Reason: IMPINGEMENT SYNDROME OF RIGHT SHOULDER Procedure Date: 06/18/2018 Accession Number: [id number] / [id number] Procedure: MRI - Shoulder RT W/O CPT Code: FULL RESULT: EXAM: RIGHT SHOULDER MRI WITHOUT CONTRAST EXAM DATE: 06/18/2018 04:05 PM. CLINICAL HISTORY: Impingement syndrome of right shoulder. COMPARISON: None. TECHNIQUE: Multiplanar, multisequence T1-weighted and fluid-sensitive sequences of the shoulder without contrast. Other: None. FINDINGS: Acromioclavicular Region: The acromion is type II. AC joint is moderately arthritic.The coracoacromial and coracoclavicular ligaments are intact. No subacromial/subdeltoid bursal fluid. Glenohumeral Region: Well maintained, no arthritic changes. No effusion or loose bodies. The articular cartilage is unremarkable. The glenohumeral ligaments and joint capsule are unremarkable. Bone Marrow: Intact artifact from surgical stays placed in the proximal humerus. Series 501 image 14. Labrum: The labrum is unremarkable on this nonarthrographic study. Musculature/Rotator Cuff: Some increased T2 signal seen in the distal supraspinatus and to a lesser extent distal infraspinatus portion of the rotator cuff. Subscapularis is thin but intact. Teres minor is normal. No full-thickness fluid-filled gaps are identified. No proximal muscular edema or fatty atrophy of the muscle bundles of the rotator cuff. Biceps Tendon: Patient is status post tenodesis long head of biceps, appears attached. Other: The subcutaneous tissues are unremarkable. IMPRESSION: 1. Type II unipartite undersurface osseous acromion shape. AC joint is moderately arthritic. 2. Some increased T2 signal in the distal supraspinatus and to a lesser extent distal infraspinatus indicating moderate tendinitis/tendinopathy. Subscapularis is thin and intact. 3. Patient is status post tenodesis long head of biceps which appears attached. [facility] MUSCULOSKELETAL RADIOLOGY SECTION
== END 2018-06-18 14:55 | disposition home or self-care (01) ==
LOC: DI 14:54
PROVIDERS: ATTEND Physician Assistant
DX: M75.41 Impingement syndrome of right shoulder (principal); M19.011 Primary osteoarthritis, right shoulder; M75.81 Other shoulder lesions, right shoulder

== ENCOUNTER 2018-08-16 11:35 | Emergency (ER) | payer MEDICARE, OTHER ==
--- NOTE | 2018-08-16 13:11 | ED Physician Documentation ---
PD HPI MALE - Stated complaint Stated Complaint: REQ BLOOD TEST - Chief complaint Chief Complaint: General - History obtained from History obtained from: Patient - History of Present Illness Timing - onset: Other (he does not have any genital symptoms. He is in new relationship and his new partner wants him to get tested for STDs before having intercourse. He has date set for this coming weekend, so there is timeliness to the testing for him.) Associated symptoms: No: Dysuria, Urinary frequency, Discharge, Genital sore / lesion PD HPI MALE CONTRIB FACTORS: Not sexually active (but hoping to be) Similar symptoms before: Has not had sx before Review of Systems Constitutional: denies: Fever, Chills : denies: Dysuria, Frequency, Discharge Skin: denies: Rash, Lesions PD PAST MEDICAL HISTORY - Past Medical History Cardiovascular: Hypertension Respiratory: Pneumonia Endocrine/Autoimmune: HyPOthyroidism GI: GERD : Benign prostate hypertrophy HEENT: Chronic vision loss, Chronic hearing loss, Other Psych: Post traumatic stress disorder, Other Musculoskeletal: Osteoarthritis Derm: Other - Past Surgical History Past Surgical History: Yes General: Other Ortho: Arthroscopic surgery HEENT: Tonsil/Adenoidectomy, Other - Present Medications Home Medications: Ambulatory Orders Medication Instructions Recorded Confirmed Lisinopril 20 mg PO DAILY 08/07/15 10/27/17 Thyroid,Pork [[place] Thyroid] 30 mg PO DAILY 08/07/15 10/27/17 Prazosin HCl 5 mg PO DAILY 04/20/17 10/27/17 Aspirin [Aspir-Low] 81 mg PO DAILY 05/13/17 10/27/17 Testosterone Cypionate 200 mg IM Q30D 05/13/17 10/27/17 [Depo-Testosterone] traMADol [Ultram] 50 mg PO Q4HR PRN #30 tablet 05/18/17 10/27/17 Acetaminophen [Tylenol] 650 mg PO Q4HR PRN 10/27/17 10/27/17 Phenazopyridine [Pyridium] 100 mg PO Q8H PRN #9 tablet 01/31/18 - Allergies Allergies/Adverse Reactions: Allergies Allergy/AdvReac Type Severity Reaction Status Date / Time amoxicillin trihydrate * AdvReac Unknown Verified 01/31/18 09:39 [From Augmentin] potassium clavulanate * AdvReac Unknown Verified 01/31/18 09:39 [From Augmentin] - Social History Does the pt smoke?: No Smoking Status: Never smoker Does the pt drink ETOH?: No Does the pt have substance abuse?: No - Immunizations Immunizations are current?: Yes - POLST Patient has POLST: No POLST Status: Full Code PD ED PE NORMAL - Vitals Vital signs reviewed: Yes - General General: Alert and oriented X 3, No acute distress, Well developed/nourished - HEENT HEENT: Pharynx benign - Neck Neck: No adenopathy - Abdomen Abdomen: Soft, Non tender - Male Male : Deferred - Neuro Neuro: Alert and oriented X 3, Normal speech Results - Vitals Vitals: Vital Signs - 24 hr 08/16/18 08/16/18 11:43 13:48 Temperature 37.0 C 36.7 C Heart Rate 98 96 Respiratory 18 12 Rate Blood Pressure 105/89 H 141/89 H O2 Saturation 98 96 Oxygen O2 Source Room air PD MEDICAL DECISION MAKING - ED course Complexity details: considered differential (advised him that we would not get results back stat this evening, but would be a day for bloods and 2-3 days for urine results. ), d/w patient Departure - Departure Disposition: 01 Home, Self Care Clinical Impression: Screening for STDs (sexually transmitted diseases) Condition: Stable Record reviewed to determine appropriate education?: Yes Follow-Up: Hilda Chilel MD [Primary Care Provider] - Comments: We should get the blood tests back in a day and the urine test back in 2-3 days. Typically would try to call you with the results. Recheck if not having the results and 3 days. Discharge Date/Time: 08/16/18 14:01
[2018-08-16 13:49] VITALS: BP 141/89
[2018-08-17 14:42] LABS: HIV AG/AB 4TH GEN NON-REACTIVE (NON-REACTIVE)
== END 2018-08-16 14:01 | disposition home or self-care (01) ==
LOC: ED 11:35
DX: Z11.3 Encounter for screening for infections with a predominantly sexual mode of transmission (principal); I10 Essential (primary) hypertension; E03.9 Hypothyroidism, unspecified; Z79.82 Long term (current) use of aspirin
CPT/HCPCS: 36415; 86780; 87491; 87591; 99282; 99283; G0475; 87389

== ENCOUNTER 2018-11-10 10:19 | Emergency (ER) | payer MEDICARE, OTHER ==
[2018-11-10 10:33] VITALS: BP 130/70
--- NOTE | 2018-11-10 12:05 | ED Physician Documentation ---
History of Present Illness - Stated complaint Stated Complaint: THROAT PAIN/COUGH - Chief complaint Chief Complaint: General - History obtained from History obtained from: Patient - History of Present Illness Timing: Other (36 hours of body aches, frontal sinus pain. Cough with sore throat. No fevers, but +chills.) Review of Systems Constitutional: reports: Chills, Myalgias, Fatigue Nose: reports: Rhinorrhea / runny nose, Congestion, Sinus pressure / pain Throat: reports: Sore throat Respiratory: reports: Cough. denies: Dyspnea PD PAST MEDICAL HISTORY - Past Medical History Cardiovascular: Hypertension Respiratory: Pneumonia Endocrine/Autoimmune: HyPOthyroidism GI: GERD : Benign prostate hypertrophy HEENT: Chronic vision loss, Chronic hearing loss, Other Psych: Post traumatic stress disorder, Other Musculoskeletal: Osteoarthritis Derm: Other - Past Surgical History Past Surgical History: Yes General: Other Ortho: Arthroscopic surgery HEENT: Tonsil/Adenoidectomy, Other - Present Medications Home Medications: Ambulatory Orders Medication Instructions Recorded Confirmed Lisinopril 20 mg PO DAILY 08/07/15 10/27/17 Thyroid,Pork [[place] Thyroid] 30 mg PO DAILY 08/07/15 10/27/17 Prazosin HCl 5 mg PO DAILY 04/20/17 10/27/17 Aspirin [Aspir-Low] 81 mg PO DAILY 05/13/17 10/27/17 Testosterone Cypionate 200 mg IM Q30D 05/13/17 10/27/17 [Depo-Testosterone] traMADol [Ultram] 50 mg PO Q4HR PRN #30 tablet 05/18/17 10/27/17 Acetaminophen [Tylenol] 650 mg PO Q4HR PRN 10/27/17 10/27/17 Hydrocodone/Acetaminophen 1 - 2 each PO Q6H PRN #14 tablet 11/10/18 [Hydrocodon-Acetaminophen 5-325] Oseltamivir [Tamiflu] 75 mg PO BID #10 capsule 11/10/18 guaiFENesin/CODEINE [Robitussin AC] 5 - 10 ml PO Q6H PRN #120 ml 11/10/18 - Allergies Allergies/Adverse Reactions: Allergies Allergy/AdvReac Type Severity Reaction Status Date / Time amoxicillin trihydrate * AdvReac Unknown Verified 11/10/18 10:33 [From Augmentin] potassium clavulanate * AdvReac Unknown Verified 11/10/18 10:33 [From Augmentin] - Social History Does the pt smoke?: No Smoking Status: Never smoker Does the pt drink ETOH?: No Does the pt have substance abuse?: No - Immunizations Immunizations are current?: Yes - POLST Patient has POLST: No POLST Status: Full Code PD ED PE NORMAL - Vitals Vital signs reviewed: Yes - General General: Alert and oriented X 3, No acute distress - HEENT HEENT: PERRL, EOMI, Ears normal, Pharynx benign - Neck Neck: Supple, no meningeal sign, No bony TTP - Cardiac Cardiac: RRR, No murmur - Respiratory Respiratory: No respiratory distress, Clear bilaterally - Abdomen Abdomen: Non tender - Derm Derm: No rash - Neuro Neuro: Alert and oriented X 3, Normal speech Results - Vitals Vitals: Vital Signs - 24 hr 11/10/18 10:28 Temperature 37.5 C Heart Rate 91 Respiratory 16 Rate Blood Pressure 130/70 O2 Saturation 95 Oxygen O2 Source Room air - Labs Labs: Laboratory Tests 11/10/18 11/10/18 11:20 11:20 Influenza A (Rapid) POSITIVE H Influenza B (Rapid) Negative Group A Strep Rapid Negative PD MEDICAL DECISION MAKING - ED course ED course: This is a 68-year-old gentleman with viral URI, specifically influenza A. He is within the window for Tamiflu treatment. The short time course and lack of "double sickening" portends against a bacterial superinfection. As does a normal exam. Departure - Departure Disposition: 01 Home, Self Care Clinical Impression: Influenza A Condition: Good Record reviewed to determine appropriate education?: Yes Instructions: ED Flu, Medication: Tamiflu (Oseltamivir) Prescriptions: guaiFENesin/CODEINE [Robitussin AC] 5 - 10 ml PO Q6H PRN #120 ml PRN Reason: Cough Hydrocodone/Acetaminophen [Hydrocodon-Acetaminophen 5-325] 1 - 2 each PO Q6H PRN #14 tablet PRN Reason: pain Oseltamivir [Tamiflu] 75 mg PO BID #10 capsule Comments: Return if worse or not better in 3-4 days.
== END 2018-11-10 12:14 | disposition home or self-care (01) ==
LOC: ED 10:19
DX: I10 Essential (primary) hypertension (principal); J10.89 Influenza due to other identified influenza virus with other manifestations
CPT/HCPCS: 87070; 87275; 87276; 87430; 99283

== ENCOUNTER 2019-05-03 13:33 | Outpatient (CLI) | payer MEDICARE, OTHER ==
--- NOTE | 2019-05-03 17:25 | XRAY Report ---
Reason: DYSPHAGIA, DISEASES OF PHARYNX Procedure Date: 05/03/2019 Accession Number: [id number] / [id number] Procedure: FL - Modified Barium Swallow W/SP CPT Code: FULL RESULT: EXAM: MODIFIED BARIUM SWALLOW EXAM DATE: 05/03/2019 02:17 PM. CLINICAL HISTORY: DYSPHAGIA, DISEASES OF PHARYNX. COMPARISON: None. TECHNIQUE: Under the direction of speech pathology, patient swallowed various consistencies of barium under lateral fluoroscopic observation of the neck. Fluoroscopy Time: 1:07 minutes. Number of Images: 108. FINDINGS: Swallowing Mechanism: Normal oral phase and swallowing reflex. Airway Protection: Normal epiglottic motion. No episodes of tracheal penetration or aspiration with all consistencies of barium. Pharynx: Normal. No significant vallecular or piriform sinus contrast pooling. Other: None. IMPRESSION: Normal modified barium swallow. No aspiration identified. [facility]
== END 2019-05-03 13:34 | disposition home or self-care (01) ==
LOC: DI 13:33
PROVIDERS: ATTEND Otolaryngology
DX: R13.19 Other dysphagia (principal); J39.2 Other diseases of pharynx
CPT/HCPCS: 74230

== ENCOUNTER 2019-08-23 12:54 | Outpatient (CLI) | payer MEDICARE, OTHER ==
--- NOTE | 2019-08-23 14:19 | CT Report ---
Reason: RLQ ABD PAIN Procedure Date: 08/23/2019 Accession Number: [id number] / [id number] Procedure: CT - Abdomen/Pelvis WO CPT Code: Final Report FULL RESULT: EXAM: CT ABDOMEN AND PELVIS EXAM DATE: 08/23/2019 01:45 PM. CLINICAL HISTORY: Right lower quadrant abdominal pain. COMPARISONS: ABDOMEN/PELVIS W/O 05/15/2017 11:57 AM. TECHNIQUE: Routine helical CT imaging was performed through the abdomen and pelvis. IV contrast: None. Enteric contrast: No. Reconstructions: Coronal and sagittal. In accordance with CT protocol optimization, one or more of the following dose reduction techniques were utilized for this exam: automated exposure control, adjustment of mA and/or KV based on patient size, or use of iterative reconstructive technique. FINDINGS: Lung Bases: Unremarkable. Liver: Normal. No masses. Gallbladder/Bile Ducts: Cholelithiasis. Spleen: Normal. Pancreas: Normal. Adrenal Glands: Normal. Kidneys: There is a left renal cyst, no hydronephrosis. Peritoneal Cavity/Bowel: There is no bowel obstruction. There is no free fluid or free air. There is no lymphadenopathy by size criteria. Pelvic Organs: Normal. The bladder and visualized pelvic organs are within normal limits. Vasculature: No aneurysms or other significant abnormality. Bones: No significant abnormality. Other: A penile implant is noted in expected configuration with the pump reservoir in the right lower quadrant and no discontinuity within the tubing leading from the reservoir to the junctional device. IMPRESSION: Limited examination in the absence of intravenous contrast with no unexpected findings related to the penile implant. [facility]
== END 2019-08-23 12:55 | disposition home or self-care (01) ==
LOC: DI 12:54
PROVIDERS: ATTEND Urology
DX: R10.31 Right lower quadrant pain (principal)
CPT/HCPCS: 74176

== ENCOUNTER 2019-09-22 10:59 | Outpatient (CLI) | payer MEDICARE, OTHER ==
--- NOTE | 2019-09-22 12:36 | CT Report ---
Reason: CHRONIC SINUSITIS Procedure Date: 09/22/2019 Accession Number: [id number] / [id number] Procedure: CT - Sinuses CPT Code: Final Report FULL RESULT: EXAM: CT SINUS EXAM DATE: 09/22/2019 11:26 AM. HISTORY: Chronic sinusitis. COMPARISONS: None. TECHNIQUE: Routine multi-axial CT imaging performed through the sinuses. Iodinated IV contrast: None. Reconstructions: Multiplanar reformats. In accordance with CT protocol optimization, one or more of the following dose reduction techniques were utilized for this exam: automated exposure control, adjustment of mA and/or KV based on patient size, or use of iterative reconstructive technique. FINDINGS: RIGHT Frontal: Minimal mucosal thickening. Ethmoid: Minimal to mild mucosal thickening. Maxillary: Multifocal mucosal thickening, especially prominent and multilobulated inferiorly, up to about 9 mm in thickness. No air-fluid level. Sphenoid: Clear. Drainage Pathways: No evidence for right side paranasal sinus obstruction. LEFT Frontal: Minimal mucosal thickening inferiorly. Ethmoid: Minimal multifocal mucosal thickening, no opacification. Maxillary: Minimal to mild multifocal multilobulated mucosal thickening. No air-fluid level. Sphenoid: Clear. Drainage Pathways: No evidence for left side paranasal sinus obstruction. Nasal Cavity: No dominant space-occupying soft tissue mass or obstruction. Osseous Structures: Grossly intact essentially midline nasal septum. There are lucent defects in the medial corona of both maxillary sinuses suggestive of previous surgical antrostomies. Orbits: Unremarkable. Other: Clear mastoids. IMPRESSION: 1. Multifocal paranasal sinus mucosal thickening. 2. No paranasal sinus opacification, air-fluid level or obstruction. 3. Patent bilateral medial maxillary sinus antrostomies. [facility]
== END 2019-09-22 11:00 | disposition home or self-care (01) ==
LOC: DI 10:59
PROVIDERS: ATTEND Otolaryngology
DX: R13.19 Other dysphagia (principal); R05 Cough; J20.9 Acute bronchitis, unspecified; J32.8 Other chronic sinusitis
CPT/HCPCS: 70486

== ENCOUNTER 2019-09-25 00:47 | Emergency (ER) | payer MEDICARE, OTHER ==
--- NOTE | 2019-09-25 01:18 | ED Physician Documentation ---
History of Present Illness - Stated complaint Stated Complaint: CANNOT URINATE - Chief complaint Chief Complaint: Abd Pain - History obtained from History obtained from: Patient (The patient is a very pleasant 69-year-old male with a history of urinary retention presents tonight unable to urinate he reports he is got a history of enlarged prostate. He denies any other complaints.) Review of Systems Constitutional: reports: Reviewed and negative Eyes: reports: Reviewed and negative Ears: reports: Reviewed and negative Nose: reports: Reviewed and negative Throat: reports: Reviewed and negative Cardiac: reports: Reviewed and negative Respiratory: reports: Reviewed and negative GI: reports: Reviewed and negative : reports: Unable to Void Skin: reports: Reviewed and negative Musculoskeletal: reports: Reviewed and negative Neurologic: reports: Reviewed and negative Psychiatric: reports: Reviewed and negative Endocrine: reports: Reviewed and negative Immunocompromised: reports: Reviewed and negative PD PAST MEDICAL HISTORY - Past Medical History Past Medical History: Yes Cardiovascular: Hypertension Respiratory: Pneumonia Endocrine/Autoimmune: HyPOthyroidism GI: GERD : Benign prostate hypertrophy, Retention, Other HEENT: Chronic vision loss, Chronic hearing loss, Other Psych: Post traumatic stress disorder, Other Musculoskeletal: Osteoarthritis Derm: Other - Past Surgical History Past Surgical History: Yes General: Other Ortho: Arthroscopic surgery HEENT: Tonsil/Adenoidectomy, Other - Present Medications Home Medications: Ambulatory Orders Medication Instructions Recorded Confirmed Thyroid,Pork [[place] Thyroid] 30 mg PO DAILY 08/07/15 09/25/19 lisinopriL [Lisinopril] 20 mg PO DAILY 08/07/15 10/27/17 Prazosin HCl 5 mg PO DAILY 04/20/17 10/27/17 Aspirin [Aspir-Low] 81 mg PO DAILY 05/13/17 09/25/19 Testosterone Cypionate 200 mg IM Q30D 05/13/17 09/25/19 [Depo-Testosterone] traMADol [Ultram] 50 mg PO Q4HR PRN #30 tablet 05/18/17 10/27/17 Acetaminophen [Tylenol] 650 mg PO Q4HR PRN 10/27/17 09/25/19 guaiFENesin/CODEINE [Robitussin AC] 5 - 10 ml PO Q6H PRN #120 ml 11/10/18 09/25/19 Nortriptyline HCl 50 mg PO QPM 01/26/20 01/26/20 Oxybutynin [Ditropan] 5 mg PO QPM 09/25/19 09/25/19 - Allergies Allergies/Adverse Reactions: Allergies Allergy/AdvReac Type Severity Reaction Status Date / Time amoxicillin trihydrate * AdvReac Unknown Verified 09/25/19 01:12 [From Augmentin] potassium clavulanate * AdvReac Unknown Verified 09/25/19 01:12 [From Augmentin] - Social History Does the pt smoke?: No Smoking Status: Never smoker Does the pt drink ETOH?: No Does the pt have substance abuse?: No - Immunizations Immunizations are current?: Yes - POLST Patient has POLST: No POLST Status: Full Code PD ED PE NORMAL - Vitals Vital signs reviewed: Yes - General General: Alert and oriented X 3, No acute distress - HEENT HEENT: PERRL - Neck Neck: Supple, no meningeal sign - Cardiac Cardiac: RRR, No murmur - Respiratory Respiratory: Clear bilaterally - Abdomen Abdomen: Normal bowel sounds, Soft, Non tender, Other (Ended bladder, No midline abdominal pulsatile mass) - Male Male : Other (Distended bladder) - Derm Derm: Warm and dry - Extremities Extremities: No deformity - Neuro Neuro: Alert and oriented X 3 - Psych Psych: Normal mood, Normal affect Results - Vitals Vitals: Vital Signs - 24 hr 09/25/19 01:00 Temperature 36.5 C Heart Rate 90 Respiratory 20 Rate Blood Pressure 163/91 H O2 Saturation 96 Oxygen O2 Source Room air PD MEDICAL DECISION MAKING - ED course Complexity details: other (Aguillon catheter inserted 1000 cc of clear urine drained from the bladder patient reports pain is resolved and he would like to be discharged home with a Aguillon in place and he will follow-up with urologist this week.) Departure - Departure Disposition: 01 Home, Self Care Clinical Impression: Urinary retention Instructions: ED Retention Urinary Male, ED Catheter Care Agu[place]
[2019-09-25 01:39] LABS: BILIRUBIN,URINE NEGATIVE (NEGATIVE); GLUCOSE, URINE (UA) NEGATIVE (NEGATIVE); KETONES,URINE (UA) NEGATIVE (NEGATIVE); LEUKOCYTE ESTERASE, URINE NEGATIVE (NEGATIVE); NITRITE,URINE NEGATIVE (NEGATIVE); OCCULT BLOOD,URINE MODERATE (NEGATIVE); PH,URINE 5.5 PH (5.0-7.5); PROTEIN,URINE NEGATIVE (NEGATIVE); UROBILINOGEN,URINE 0.2 (NORMAL) E.U./dL (NORMAL)
[2019-09-25 01:41] LABS: CLARITY,URINE CLEAR (CLEAR)
[2019-09-25 01:45] LABS: BACTERIA,URINE None Seen /HPF (None Seen); RBC,URINE 0-5 /HPF (0-5); SQUAMOUS EPITHELIAL CELL,UR NONE SEEN (<= Few)
[2019-09-25 02:02] VITALS: BP 127/72
== END 2019-09-25 02:22 | disposition home or self-care (01) ==
LOC: ED 00:47
DX: N40.1 Benign prostatic hyperplasia with lower urinary tract symptoms (principal); R33.8 Other retention of urine; I10 Essential (primary) hypertension; Z79.82 Long term (current) use of aspirin
CPT/HCPCS: 51702; 81001; 81003; 87086; 99282; 99283

== ENCOUNTER 2020-06-24 10:25 | Emergency (ER) | payer MEDICARE, OTHER ==
[2020-06-24 10:38] VITALS: BP 136/79
[2020-06-24] MEDS ORDERED: DOXYCYCLINE 100 MG TABLET PO STA (11:14)
--- NOTE | 2020-06-24 11:17 | ED Physician Documentation ---
History of Present Illness - Stated complaint Stated Complaint: SINUS/VERTIGO - Chief complaint Chief Complaint: Heent - History obtained from History obtained from: Patient - Additonal information Additional information: Patient comes emergency department complaining of sinus pain, drainage, and vertigo for the last week. He has not had any fevers. Patient states is a longstanding history of recurrent sinusitis, and has seen ENT for years for this. He states he requires antibiotics about once a year, and this feels like prior episodes. He states he tried to get into see his ENT, but they could not see him for a couple of weeks and recommended he come to the ER, as they did not want to prescribe antibiotics without seeing him. Patient states that some years ago, he had recurrent infection in his sinuses for an entire year and was finally referred to infectious disease by ENT. He was at that time given IV Unasyn, as he could not take Augmentin, due to side effects, and he states that this did finally clear up the infection. He states the only thing that is different this time from prior episodes of sinusitis is that he has positional vertigo, which is worse if he bends over and then stands up or if he turns his head either way. No nausea or vomiting. No other complaints at this time. Review of Systems Ten Systems: 10 systems reviewed and negative Constitutional: reports: Reviewed and negative. denies: Fever Eyes: reports: Reviewed and negative Ears: reports: Reviewed and negative. denies: Loss of hearing, Tinnitus/ringing Nose: reports: Rhinorrhea / runny nose (Green), Congestion, Sinus pressure / pain Throat: reports: Reviewed and negative Cardiac: reports: Reviewed and negative Respiratory: reports: Reviewed and negative. denies: Cough GI: reports: Reviewed and negative : reports: Reviewed and negative Skin: reports: Reviewed and negative Musculoskeletal: reports: Reviewed and negative. denies: Neck pain Neurologic: reports: Other (Vertigo) Psychiatric: reports: Reviewed and negative Endocrine: reports: Reviewed and negative Immunocompromised: reports: Reviewed and negative PD PAST MEDICAL HISTORY - Past Medical History Past Medical History: Yes Cardiovascular: Hypertension Respiratory: Pneumonia Endocrine/Autoimmune: HyPOthyroidism GI: GERD : Benign prostate hypertrophy, Retention, Other HEENT: Chronic vision loss, Chronic hearing loss, Other Psych: Post traumatic stress disorder, Other Musculoskeletal: Osteoarthritis Derm: Other - Past Surgical History Past Surgical History: Yes General: Other Ortho: Arthroscopic surgery HEENT: Tonsil/Adenoidectomy, Other - Present Medications Home Medications: Ambulatory Orders Medication Instructions Recorded Confirmed Thyroid,Pork [[place] Thyroid] 30 mg PO DAILY 08/07/15 09/25/19 lisinopriL [Lisinopril] 20 mg PO DAILY 08/07/15 10/27/17 Prazosin HCl 5 mg PO DAILY 04/20/17 10/27/17 Aspirin [Aspir-Low] 81 mg PO DAILY 05/13/17 09/25/19 Testosterone Cypionate 200 mg IM Q30D 05/13/17 09/25/19 [Depo-Testosterone] traMADol [Ultram] 50 mg PO Q4HR PRN #30 tablet 05/18/17 10/27/17 Acetaminophen [Tylenol] 650 mg PO Q4HR PRN 10/27/17 09/25/19 guaiFENesin/CODEINE [Robitussin AC] 5 - 10 ml PO Q6H PRN #120 ml 11/10/18 09/25/19 Nortriptyline HCl 50 mg PO QPM 09/25/19 09/25/19 Oxybutynin [Ditropan] 5 mg PO QPM 09/25/19 09/25/19 Doxycycline Hyclate 100 mg PO BID #14 capsule 06/24/20 Meclizine HCl 25 mg PO Q6HR PRN #14 tablet 06/24/20 - Allergies Allergies/Adverse Reactions: Allergies Allergy/AdvReac Type Severity Reaction Status Date / Time amoxicillin trihydrate * AdvReac Unknown Verified 06/24/20 10:38 [From Augmentin] potassium clavulanate * AdvReac Unknown Verified 06/24/20 10:38 [From Augmentin] - Social History Does the pt smoke?: No Smoking Status: Never smoker Does the pt drink ETOH?: No Does the pt have substance abuse?: No - Immunizations Immunizations are current?: Yes - POLST Patient has POLST: No POLST Status: Full Code PD ED PE NORMAL - Vitals Vital signs reviewed: Yes - General General: Alert and oriented X 3, No acute distress, Well developed/nourished - HEENT HEENT: Atraumatic, PERRL, EOMI, Ears normal, Moist mucous membranes, Dentition benign - Neck Neck: Supple, no meningeal sign, No adenopathy - Respiratory Respiratory: No respiratory distress - Derm Derm: Warm and dry - Extremities Extremities: No deformity - Neuro Neuro: Alert and oriented X 3, motor room controller 2-12 intact, No motor deficit, No sensory deficit, Normal speech, Other (Grossly normal) - Psych Psych: Normal mood, Normal affect Results - Vitals Vitals: Vital Signs - 24 hr 06/24/20 10:35 Temperature 36.1 C L Heart Rate 73 Respiratory 16 Rate Blood Pressure 136/79 H O2 Saturation 96 Oxygen O2 Source Room air PD MEDICAL DECISION MAKING - ED course Complexity details: considered differential, d/w patient ED course: Based on the patient's sinus pain and extensive history of sinusitis with need for PICC line and IV Unasyn after infectious disease referral, I did decide to treat the patient with antibiotics this time. The patient was given first dose of antibiotics here in the department. I have discussed with him that it is very important that he follow-up with ENT on this issue. Departure - Departure Clinical Impression: Sinusitis Qualifiers: Sinusitis location: unspecified location Chronicity: acute Recurrence: recurrent Qualified Code(s): J01.91 - Acute recurrent sinusitis, unspecified Condition: Stable Instructions: ED Sinusitis Abx Tx Prescriptions: Meclizine HCl 25 mg PO Q6HR PRN #14 tablet PRN Reason: Dizziness Doxycycline Hyclate 100 mg PO BID #14 capsule Comments: Please call Dr. Harmon of ENT to set up a follow-up appointment.
== END 2020-06-24 11:23 | disposition home or self-care (01) ==
LOC: ED 10:25
DX: J01.91 Acute recurrent sinusitis, unspecified (principal); I10 Essential (primary) hypertension
CPT/HCPCS: 99282; 99284; A9270

== ENCOUNTER 2021-01-24 13:35 | Emergency (ER) | payer MEDICARE, OTHER ==
[2021-01-24 14:16] LABS: BILIRUBIN,URINE NEGATIVE (NEGATIVE); GLUCOSE, URINE (UA) NEGATIVE (NEGATIVE); KETONES,URINE (UA) NEGATIVE (NEGATIVE); LEUKOCYTE ESTERASE, URINE NEGATIVE (NEGATIVE); NITRITE,URINE NEGATIVE (NEGATIVE); OCCULT BLOOD,URINE NEGATIVE (NEGATIVE); PROTEIN,URINE NEGATIVE (NEGATIVE); UROBILINOGEN,URINE 0.2 (NORMAL) E.U./dL (NORMAL)
[2021-01-24 14:18] LABS: CLARITY,URINE CLEAR (CLEAR)
[2021-01-24 14:22] LABS: BASOPHILS # (AUTO) 0.1 10^3/uL (0.0-0.1); BASOPHILS % (AUTO) 0.6 %; EOSINOPHILS # (AUTO) 0.5 10^3/uL (0.0-0.7); EOSINOPHILS % (AUTO) 5.4 %; HCT - HEMATOCRIT 53.2 % (42.0-52.0); HGB - HEMOGLOBIN 18.3 g/dL (14.0-18.0); LYMPHOCYTES # (AUTO) 1.4 10^3/uL (1.5-3.5); LYMPHOCYTES % (AUTO) 14.2 %; MEAN CORPUSCULAR HEMOGLOBIN 29.7 pg (27.0-31.0); MEAN CORPUSCULAR HGB CONC 34.4 g/dL (32.0-36.0); MEAN CORPUSCULAR VOLUME 86.2 fL (80.0-94.0); MONOCYTES # (AUTO) 0.9 10^3/uL (0.0-1.0); MONOCYTES % (AUTO) 8.7 %; NEUTROPHILS % (AUTO) 70.6 %; PLT - PLATELET COUNT 177 10^3/uL (130-450); RED BLOOD COUNT 6.17 10^6/uL (4.70-6.10); RED CELL DISTRIBUTION WIDTH 14.4 % (12.0-15.0)
[2021-01-24 14:35] LABS: ALBUMIN 4.2 g/dL (3.2-5.5); ALBUMIN/GLOBULIN RATIO 1.4 (1.0-2.2); BILIRUBIN,TOTAL 1.4 mg/dL (0.2-1.0); CALCIUM 8.8 mg/dL (8.5-10.3); CREATININE 1.4 mg/dL (0.6-1.2); TOTAL PROTEIN 7.1 g/dL (6.7-8.2)
--- NOTE | 2021-01-24 14:53 | ED Physician Documentation ---
PD HPI ABD PAIN - Stated complaint Stated Complaint: R SIDE PX - Chief complaint Chief Complaint: Abd Pain - History obtained from History obtained from: Patient - History of Present Illness Timing - onset: How many days ago (4) Timing - duration: Days (4) Timing - details: Gradual onset, Still present Quality: Sharp, Pain Location: RLQ Radiation: Lower back Improved by: Laying still Worsened by: Moving, Breathing, Position, Palpation Associated symptoms: No: Nausea, Vomiting Similar symptoms before: Has not had sx before Recently seen: Not recently seen - Additional information Additional information: Previously well 70-year-old male has developed right lower quadrant abdominal pain that is sharp in nature and began about 4 days ago. He has had increasing pain day by day. He has been able to eat he has a reduced appetite today. He has not had a fever. He has pain with movement and pain to palpation and pain at rest. Review of Systems Constitutional: denies: Fever Eyes: denies: Decreased vision Ears: denies: Ear pain Nose: denies: Rhinorrhea / runny nose, Congestion Throat: denies: Sore throat Cardiac: denies: Chest pain / pressure Respiratory: denies: Dyspnea GI: reports: Abdominal Pain. denies: Nausea, Vomiting, Constipation, Diarrhea : denies: Dysuria, Frequency PD PAST MEDICAL HISTORY - Past Medical History Past Medical History: Yes Cardiovascular: Hypertension Respiratory: Pneumonia Endocrine/Autoimmune: HyPOthyroidism GI: GERD : Benign prostate hypertrophy, Retention, Other HEENT: Chronic vision loss, Chronic hearing loss, Other Psych: Post traumatic stress disorder, Other Musculoskeletal: Osteoarthritis Derm: Other - Past Surgical History Past Surgical History: Yes General: Other Ortho: Arthroscopic surgery HEENT: Tonsil/Adenoidectomy, Other - Present Medications Home Medications: Ambulatory Orders Medication Instructions Recorded Confirmed Thyroid,Pork [[place] Thyroid] 30 mg PO DAILY 08/07/15 09/25/19 lisinopriL [Lisinopril] 20 mg PO DAILY 08/07/15 10/27/17 Prazosin HCl 5 mg PO DAILY 04/20/17 10/27/17 Aspirin [Aspir-Low] 81 mg PO DAILY 05/13/17 09/25/19 Testosterone Cypionate 200 mg IM Q30D 05/13/17 09/25/19 [Depo-Testosterone] traMADol [Ultram] 50 mg PO Q4HR PRN #30 tablet 05/18/17 10/27/17 Acetaminophen [Tylenol] 650 mg PO Q4HR PRN 10/27/17 09/25/19 guaiFENesin/CODEINE [Robitussin AC] 5 - 10 ml PO Q6H PRN #120 ml 11/10/18 09/25/19 Nortriptyline HCl 50 mg PO QPM 09/25/19 09/25/19 Oxybutynin [Ditropan] 5 mg PO QPM 09/25/19 09/25/19 Doxycycline Hyclate 100 mg PO BID #14 capsule 06/24/20 Meclizine HCl 25 mg PO Q6HR PRN #14 tablet 06/24/20 - Allergies Allergies/Adverse Reactions: Allergies Allergy/AdvReac Type Severity Reaction Status Date / Time amoxicillin trihydrate * AdvReac Unknown Verified 01/24/21 13:56 [From Augmentin] potassium clavulanate * AdvReac Unknown Verified 01/24/21 13:56 [From Augmentin] - Social History Does the pt smoke?: No Smoking Status: Never smoker Does the pt drink ETOH?: No Does the pt have substance abuse?: No - Immunizations Immunizations are current?: Yes - POLST Patient has POLST: No POLST Status: Full Code PD ED PE NORMAL - Vitals Vital signs reviewed: Yes (hypertensive ) - General General: Alert and oriented X 3, No acute distress, Well developed/nourished - Neck Neck: Supple, no meningeal sign, No bony TTP - Cardiac Cardiac: RRR, No murmur - Respiratory Respiratory: No respiratory distress, Clear bilaterally - Abdomen Abdomen: Normal bowel sounds, Soft, Non distended, No organomegaly, Other (specific area of tenderness just above the penile implant resivoir. There is pain to deep palpation and tenderness referred to the area with rebound. There is no overlying erythema or swelling. ) - Back Back: No CVA TTP, No spinal TTP - Derm Derm: Normal color, Warm and dry, No rash - Extremities Extremities: No deformity, No edema - Neuro Neuro: Alert and oriented X 3, locomotive pipe fitter 2-12 intact, No motor deficit, No sensory deficit, Normal speech Eye Opening: Spontaneous Motor: Obeys Commands Verbal: Oriented GCS Score: 15 - Psych Psych: Normal mood, Normal affect Results - Vitals Vitals: Vital Signs - 24 hr 01/24/21 01/24/21 01/24/21 13:56 14:36 16:49 Temperature 37.2 C 36.5 C Heart Rate 90 69 76 Respiratory 16 16 18 Rate Blood Pressure 131/72 H 136/79 H 135/87 H O2 Saturation 96 93 96 Oxygen O2 Source Room air - Labs Labs: Laboratory Tests 01/24/21 01/24/21 01/24/21 14:06 14:15 14:15 WBC 10.0 RBC 6.17 H Hgb 18.3 H Hct 53.2 H MCV 86.2 MCH 29.7 MCHC 34.4 RDW 14.4 Plt Count 177 MPV 10.0 Neut # (Auto) 7.0 H Lymph # (Auto) 1.4 L [place] # (Auto) 0.9 Eos # (Auto) 0.5 Baso # (Auto) 0.1 Absolute Nucleated RBC 0.00 Nucleated RBC % 0.0 Sodium 139 Potassium 4.0 Chloride 105 Carbon Dioxide 29 Anion Gap 5.0 L BUN 22 H Creatinine 1.4 H Estimated GFR (MDRD) 50 L Glucose 142 H Calcium 8.8 Total Bilirubin 1.4 H AST 21 ALT 24 Alkaline Phosphatase 56 Total Protein 7.1 Albumin 4.2 Globulin 2.9 Albumin/Globulin Ratio 1.4 Lipase 29 Urine Color DARK YELLOW Urine Clarity CLEAR Urine pH 6.0 Ur Specific [place] >=1.030 H Urine Protein NEGATIVE Urine Glucose (UA) NEGATIVE Urine Ketones NEGATIVE Urine Occult Blood NEGATIVE Urine Nitrite NEGATIVE Urine Bilirubin NEGATIVE Urine Urobilinogen 0.2 (NORMAL) Ur Leukocyte Esterase NEGATIVE Ur Microscopic Review NOT INDICATED Urine Culture Comments NOT INDICATED - Rads (name of study) CT ab/pel with Radiology: Prelim report reviewed (1. There is new mild fat stranding surrounding the right anterior pelvic penile pump reservoir which may indicate infection/inflammation versus surrounding soft tissue injury if there is a history of recent trauma to this region. Clinical correlation recommended. Appendix is not seen. ), Final report received ( No evidence of appendicitis. Cholelithiasis without evidence of cholecystitis.), EMP read indepedently, See rad report PD MEDICAL DECISION MAKING - ED course Complexity details: reviewed old records, reviewed results, re-evaluated patient, considered differential, d/w patient ED course: CT ab/pel with: Impression: 1. There is a new mild fat stranding surrounding the right anterior pelvic penile pump reservoir which may indicate infection/inflammation versus surrounding soft tissue injury. If there is a history of recent trauma to this region. Clinical correlation is recommended. Appendix is not seen. No evidence of appendicitis. Cholelithiasis without evidence of cholecystitis. The patient does have a history of excessive use of the reservoir and penile implant over the past week. He was concerned this may be the issue. He is administered a dose of dexamethasone 10 mg intravenously. Departure - Departure Disposition: 01 Home, Self Care Clinical Impression: Other mechanical complication of implanted penile prosthesis, initial encounter Condition: Stable Instructions: ED Strain Abdominal Muscle Follow-Up: KATHARINE MENDEZ MD [Primary Care Provider] - Delores Sr MD [Physician No Access] - Comments: Today it appears the pain you are having in your right lower quadrant is related to the reservoir of the penile implant. There is inflammation around this and this is likely an injury and not an infection. If you develop fever or redness over the area worsening pain return to the emergency department. Expect her symptoms otherwise to resolve in the next 2 to 7 days. Discharge Date/Time: 01/24/21 17:27
[2021-01-24] MEDS ORDERED: IOVERSOL 320 100 ML VIAL IVP ONE ×2 (15:06→23:31)
[2021-01-24] MEDS ORDERED: SODIUM CHLORIDE 0.9% 1,000 ML IV STA (16:03)
--- NOTE | 2021-01-24 16:09 | CT Report ---
PROCEDURE: Abdomen/Pelvis W INDICATIONS: RLQ pain tenderness CONTRAST: IV CONTRAST: Optiray 320 ml: 100 PO CONTRAST: *NO PO CONTRAST TECHNIQUE: After the administration of IV contrast, 5 mm thick sections acquired from the diaphragms to the symp hysis. 5 mm thick coronal and sagittal reformats were acquired. For radiation dose reduction, the f ollowing was used: automated exposure control, adjustment of mA and/or kV according to patient size. COMPARISON: None. FINDINGS: Image quality: Excellent. ABDOMEN: Lung bases: Lung bases are clear. Heart size is normal. Solid organs: Liver and spleen are normal in size and enhancement. Gallbladder demonstrates multipl e calculi within its lumen, as before Biliary system is non dilated. Pancreas enhances normally. N o adrenal nodules. Kidneys demonstrate normal size and enhancement, without hydronephrosis. Peritoneum and bowel: Bowel loops demonstrate normal wall thickness and caliber. Appendix not seen. No evidence of appendicitis. No free fluid or air. Nodes and vessels: No retroperitoneal or mesenteric adenopathy by size criteria. Aorta and inferior vena cava are normal in size. Miscellaneous: No ventral hernias. PELVIS: Genitourinary: Bladder wall thickness is normal. Miscellaneous: No inguinal hernias or adenopathy. There is a reservoir within the right anterior pe lvis, as before, which demonstrates new, mild surrounding fat stranding. Bones: No suspicious bony l esions. No vertebral body compression fractures. IMPRESSION: 1. There is new mild fat stranding surrounding the right anterior pelvic penile pump reservoir which may indicate infection/inflammation versus surrounding soft tissue injury of there is a history of re cent trauma to this region. Clinical correlation recommended. 2. Appendix not seen. No evidence of appendicitis. 3. Cholelithiasis with no evidence of cholecystitis. Reviewed by: Jimy Crespo MD on 01/24/2021 4:08 PM PDT Approved by: Jimy Crespo MD on 01/24/2021 4:08 PM PDT Station ID: [id number]
[2021-01-24] MEDS ORDERED: DEXAMETHASONE 10 MG/ML VIAL IVP STA (16:20)
[2021-01-24 16:50] VITALS: BP 135/87
== END 2021-01-24 17:27 | disposition home or self-care (01) ==
LOC: ED 13:35
DX: T83.490A Other mechanical complication of implanted penile prosthesis, initial encounter (principal)
CPT/HCPCS: 36415; 74177; 80053; 81003; 83690; 85025; 96361; 96374; 99284; Q9967; 81001; 87086

== ENCOUNTER 2021-02-06 11:00 | Emergency (ER) | payer MEDICARE, OTHER ==
--- OUTSIDE RECORDS SUMMARY | 2021-02-06 11:04 | EXTERNAL MEDICAL SUMMARY RPT | Continuity of Care Document ---
:1950 Demographics Phone Unavailable Preferred Language Unknown Marital Status Unknown Anglican Affiliation Unknown Race Unknown Ethnic Group Unknown Author Organization [facility] Address [address] [id number] Phone Allergies Encounters Medications Problems Results
--- OUTSIDE RECORDS SUMMARY | 2021-02-06 11:06 | EXTERNAL MEDICAL SUMMARY RPT | Continuity of Care Document ---
:1950 Demographics Phone Unavailable Preferred Language Unknown Marital Status Unknown Episcopalian Affiliation Unknown Race Unknown Ethnic Group Unknown Author Organization [facility] Address [address] [id number] Phone Allergies Encounters Medications Problems Results
[2021-02-06 11:13] VITALS: BP 148/90
--- NOTE | 2021-02-06 12:14 | ED Physician Documentation ---
History of Present Illness - Stated complaint Stated Complaint: MALE - Chief complaint Chief Complaint: General - History obtained from History obtained from: Patient - Additonal information Additional information: 71-year-old gentleman is patient susana, he has been dating a nurse for about 3 weeks and she demands that he have STD testing prior to "taking it to the next level." He has no symptoms of STDs. Review of Systems Constitutional: denies: Fever, Chills, Fatigue, Weight Loss GI: denies: Abdominal Pain : denies: Dysuria, Frequency PD PAST MEDICAL HISTORY - Past Medical History Cardiovascular: Hypertension Respiratory: Pneumonia Endocrine/Autoimmune: HyPOthyroidism GI: GERD : Benign prostate hypertrophy, Retention, Other HEENT: Chronic vision loss, Chronic hearing loss, Other Psych: Post traumatic stress disorder, Other Musculoskeletal: Osteoarthritis Derm: Other - Past Surgical History Past Surgical History: Yes General: Other Ortho: Arthroscopic surgery HEENT: Tonsil/Adenoidectomy, Other - Present Medications Home Medications: Ambulatory Orders Medication Instructions Recorded Confirmed Thyroid,Pork [[place] Thyroid] 30 mg PO DAILY 08/07/15 09/25/19 lisinopriL [Lisinopril] 20 mg PO DAILY 08/07/15 10/27/17 Prazosin HCl 5 mg PO DAILY 04/20/17 10/27/17 Aspirin [Aspir-Low] 81 mg PO DAILY 05/13/17 09/25/19 Testosterone Cypionate 200 mg IM Q30D 05/13/17 09/25/19 [Depo-Testosterone] traMADol [Ultram] 50 mg PO Q4HR PRN #30 tablet 05/18/17 10/27/17 Acetaminophen [Tylenol] 650 mg PO Q4HR PRN 10/27/17 09/25/19 guaiFENesin/CODEINE [Robitussin AC] 5 - 10 ml PO Q6H PRN #120 ml 11/10/18 09/25/19 Nortriptyline HCl 50 mg PO QPM 09/25/19 09/25/19 Oxybutynin [Ditropan] 5 mg PO QPM 09/25/19 09/25/19 Doxycycline Hyclate 100 mg PO BID #14 capsule 06/24/20 Meclizine HCl 25 mg PO Q6HR PRN #14 tablet 06/24/20 - Allergies Allergies/Adverse Reactions: Allergies Allergy/AdvReac Type Severity Reaction Status Date / Time amoxicillin trihydrate * AdvReac Unknown Verified 02/06/21 11:13 [From Augmentin] potassium clavulanate * AdvReac Unknown Verified 02/06/21 11:13 [From Augmentin] - Social History Does the pt smoke?: No Smoking Status: Never smoker Does the pt drink ETOH?: No Does the pt have substance abuse?: No - Immunizations Immunizations are current?: Yes - POLST Patient has POLST: No POLST Status: Full Code PD ED PE NORMAL - Vitals Vital signs reviewed: Yes - General General: Alert and oriented X 3, No acute distress - HEENT HEENT: PERRL, EOMI - Neck Neck: Supple, no meningeal sign, No bony TTP - Neuro Neuro: Alert and oriented X 3, Normal speech - Psych Psych: Normal mood, Normal affect Results - Vitals Vitals: Vital Signs - 24 hr 02/06/21 11:08 Temperature 36.5 C Heart Rate 89 Respiratory 16 Rate Blood Pressure 148/90 H O2 Saturation 96 Oxygen O2 Source Room air PD MEDICAL DECISION MAKING - ED course ED course: Discussed with him that asymptomatic STD testing prior to a new relationship is really not an appropriate use of the emergency department. [place]ited outpatient appointment. Departure - Departure Disposition: 01 Home, Self Care Clinical Impression: Encounter for medical screening examination Condition: Good Record reviewed to determine appropriate education?: Yes Comments: Dr. Lovett on [facility] should be calling you Thursday at 2:20 PM for further evaluation and treatment and they can arrange for outpatient STD testing for you. Return for new or worsening symptoms.
== END 2021-02-06 12:32 | disposition home or self-care (01) ==
LOC: ED 11:00
DX: Z01.89 Encounter for other specified special examinations (principal); I10 Essential (primary) hypertension
CPT/HCPCS: 99281

== ENCOUNTER 2022-10-29 12:25 | Day surgery (SDC) | payer MEDICARE, OTHER ==
--- NOTE | 2022-10-29 13:17 | ANESTHESIA ---
Pre-Anesthesia VS, & Labs - Diagnosis screening - Procedure colonoscopy Height: 6 ft Weight (kg): 101.6 kg Body Mass Index: 30.4 BMI Classification: Obese - NPO Other (prep as directed) Home Medications and Allergies Home Medications: Ambulatory Orders Ascorbic Acid [Vitamin C] 1,000 mg PO DAILY 10/28/22 Carbidopa/Levodopa 25/100 [Sinemet 25 mg/100 mg] 1 each PO TID 10/28/22 Cetirizine [ZyrTEC] 10 mg PO ONCE 10/28/22 Multivitamin 1 each PO DAILY 10/28/22 [place]-3/Dha/Epa/Fish Oil [Fish Oil 1,200 mg Softgel] 1,200 mg PO DAILY 10/28/22 hydrOXYzine HCL [Hydroxyzine HCl] 25 mg PO HS 10/28/22 traZODone [Desyrel] 50 mg PO HS 10/28/22 Thyroid,Pork [[place] Thyroid] 30 mg PO DAILY 08/07/15 Prazosin HCl 5 mg PO DAILY 04/20/17 Aspirin [Aspir-Low] 81 mg PO DAILY 05/13/17 Testosterone Cypionate [Depo-Testosterone] 200 mg IM Q30D 05/13/17 Ascorbic Acid [Vitamin C] 1,000 mg PO DAILY 10/28/22 Carbidopa/Levodopa 25/100 [Sinemet 25 mg/100 mg] 1 each PO TID 10/28/22 Cetirizine [ZyrTEC] 10 mg PO ONCE 10/28/22 Multivitamin 1 each PO DAILY 10/28/22 [place]-3/Dha/Epa/Fish Oil [Fish Oil 1,200 mg Softgel] 1,200 mg PO DAILY 10/28/22 hydrOXYzine HCL [Hydroxyzine HCl] 25 mg PO HS 10/28/22 traZODone [Desyrel] 50 mg PO HS 10/28/22 Allergies/Adverse Reactions: Allergies Allergy/AdvReac Type Severity Reaction Status Date / Time amoxicillin trihydrate * AdvReac Unknown Verified 10/28/22 12:00 [From Augmentin] potassium clavulanate * AdvReac Unknown Verified 10/29/22 13:19 [From Augmentin] Anes History & Medical History - Anesthetic History Anesthesia Complications: reports: No previous complications - Medical History Cardiovascular: reports: Hypertension Pulmonary: reports: Pneumonia Gastrointestinal: reports: GERD Urinary: reports: Benign prostate hypertrophy, Retention, Other Musculoskeletal: reports: Osteoarthritis Endocrine/Autoimmune: reports: HyPOthyroidism Skin: reports: Other Smoking Status: Never smoker - Surgical History General: reports: Other Eyes Ears Nose Throat (EENT): reports: Tonsil/Adenoidectomy, Other Orthopedic: reports: Arthroscopic surgery Exam General: Alert, Oriented x3 Dental: WNL Mouth Opening: Greater than 4 Fingerbreadths Neck Mobility: Normal Mallampati classification: II Thyromental Distance: greater than 6 cm Respiratory: Lungs clear Cardiovascular: Regular rate Plan Anesthesia Type: Total IV Consent for Procedure(s) Verified and Reviewed: Yes Code Status: Attempt Resuscitation ASA classification: 2-Mild systemic disease Is this case an emergency?: No
[2022-10-29] MEDS ORDERED: LACTATED RINGERS 1,000 ML IV ONE (13:18)
[2022-10-29] MEDS ORDERED: PROPOFOL 500 MG/50 ML 500 MG/50 ML VIAL ONE (13:21)
[2022-10-29] MEDS ORDERED: LACTATED RINGERS 700 ML IV ONE (14:27)
--- NOTE | 2022-10-29 14:46 | ANESTHESIA POST OP EVALUATION ---
Anesthesia Post Eval - Post Anesthesia Eval Vitals: Last Vital Signs Temp 36.5 C 10/29/22 14:45 Pulse 61 10/29/22 14:45 Resp 18 10/29/22 14:45 BP 103/61 10/29/22 14:45 Pulse Ox 93 10/29/22 14:45 O2 Flow Rate CV Function Including HR & BP: Stable Pain Control: Satisfactory Nausea & Vomiting: Negative Mental Status: Baseline Respiratory Status: Airway Patent Hydration Status: Satisfactory Anesthesia Complications: None
[2022-10-29 14:51] VITALS: BP 101/66
== END 2022-10-29 12:26 | disposition home or self-care (01) ==
LOC: SDS 12:25
PROVIDERS: ATTEND Surgery
PROC: 0DBP8ZZ Excision of Rectum, Via Natural or Artificial Opening Endoscopic (ICD-10-PCS; principal; 2022-10-29 13:45)
DX: Z12.11 Encounter for screening for malignant neoplasm of colon (principal); K62.1 Rectal polyp; K64.8 Other hemorrhoids; E66.9 Obesity, unspecified; Z68.30 Body mass index [BMI] 30.0-30.9, adult
CPT/HCPCS: 45380; J7120

== ENCOUNTER 2022-12-21 10:27 | Emergency (ER) | payer MEDICARE, OTHER ==
[2022-12-21 10:43] VITALS: BP 134/75
[2022-12-21 11:12] LABS: BILIRUBIN,URINE NEGATIVE (NEGATIVE)
[2022-12-21 11:16] LABS: CLARITY,URINE BLOODY (CLEAR); OCCULT BLOOD,URINE LARGE (NEGATIVE)
[2022-12-21 11:18] LABS: BACTERIA,URINE Rare /HPF (None Seen); RBC,URINE TNTC /HPF (0-5); SQUAMOUS EPITHELIAL CELL,UR NONE SEEN (<= Few)
[2022-12-21] MEDS ORDERED: LIDOCAINE 1% 2 ML VIAL MC ONE (11:28)
[2022-12-21] MEDS ORDERED: cefTRIAXone 1 GM VIAL IM STA (11:28)
--- NOTE | 2022-12-21 11:36 | ED Physician Documentation ---
History of Present Illness - Stated complaint Stated Complaint: MALE - Chief complaint Chief Complaint: Abd Pain - History obtained from History obtained from: Patient - History of Present Illness Timing: Today Pain level max: 4 Pain level now: 3 - Additonal information Additional information: Patient is a 72-year-old male who presents to the emergency department with hematuria and dysuria that started today. He states he has had approximately 9 UTIs in the past. Nothing seems to make this better or worse. Has a history of a TURP. Penile implants. He is followed by Dr. Sr with [facility] urology. Review of Systems Constitutional: denies: Fever, Chills GI: denies: Vomiting Skin: denies: Rash Neurologic: denies: Headache PD PAST MEDICAL HISTORY - Past Medical History Cardiovascular: Hypertension Respiratory: Pneumonia Endocrine/Autoimmune: HyPOthyroidism GI: GERD : Benign prostate hypertrophy, Retention, Other HEENT: Chronic vision loss, Chronic hearing loss, Other Psych: Post traumatic stress disorder, Other Musculoskeletal: Osteoarthritis Derm: Other - Past Surgical History Past Surgical History: Yes General: Other Ortho: Arthroscopic surgery HEENT: Tonsil/Adenoidectomy, Other - Present Medications Home Medications: Ambulatory Orders Medication Instructions Recorded Confirmed Thyroid,Pork [[place] Thyroid] 30 mg PO DAILY 08/07/15 10/28/22 Prazosin HCl 5 mg PO DAILY 04/20/17 10/28/22 Aspirin [Aspir-Low] 81 mg PO DAILY 05/13/17 10/28/22 Testosterone Cypionate 200 mg IM Q30D 05/13/17 10/29/22 [Depo-Testosterone] traMADol [Ultram] 50 mg PO Q4HR PRN #30 tablet 05/18/17 10/28/22 Ascorbic Acid [Vitamin C] 1,000 mg PO DAILY 10/28/22 10/28/22 Carbidopa/Levodopa 25/100 [Sinemet 1 each PO TID 10/28/22 10/29/22 25 mg/100 mg] Cetirizine [ZyrTEC] 10 mg PO ONCE 10/28/22 10/29/22 Multivitamin 1 each PO DAILY 10/28/22 10/28/22 [place]-3/Dha/Epa/Fish Oil [Fish Oil 1,200 mg PO DAILY 10/28/22 10/28/22 1,200 mg Softgel] hydrOXYzine HCL [Hydroxyzine HCl] 25 mg PO HS 10/28/22 10/28/22 traZODone [Desyrel] 50 mg PO HS 10/28/22 10/28/22 Cefdinir 300 mg PO BID #20 cap 12/21/22 - Allergies Allergies/Adverse Reactions: Allergies Allergy/AdvReac Type Severity Reaction Status Date / Time amoxicillin trihydrate * AdvReac Unknown Verified 12/21/22 10:43 [From Augmentin] potassium clavulanate * AdvReac Unknown Verified 12/21/22 10:43 [From Augmentin] - Social History Does the pt smoke?: No Smoking Status: Never smoker Does the pt drink ETOH?: No Does the pt have substance abuse?: No - Immunizations Immunizations are current?: Yes - POLST Patient has POLST: No POLST Status: Full Code PD ED PE NORMAL - Vitals Vital signs reviewed: Yes - General General: Alert and oriented X 3, No acute distress - HEENT HEENT: Moist mucous membranes - Neck Neck: Supple, no meningeal sign - Cardiac Cardiac: RRR - Respiratory Respiratory: No respiratory distress, Clear bilaterally - Abdomen Abdomen: Soft, Non tender, Non distended - Male Male : Other (normal external exam) - Derm Derm: Warm and dry - Neuro Neuro: Alert and oriented X 3 - Psych Psych: Normal mood, Normal affect Results - Vitals Vitals: Vital Signs - 24 hr 12/21/22 10:40 Temperature 36.8 C Heart Rate 61 Respiratory 16 Rate Blood Pressure 134/75 H O2 Saturation 94 Oxygen O2 Source Room air - Labs Labs: Laboratory Tests 12/21/22 10:54 Urine Color RED/BLOODY Urine Clarity BLOODY Urine pH Ur Specific [place] Urine Protein Urine Glucose (UA) Urine Ketones Urine Occult Blood LARGE H Urine Nitrite Urine Bilirubin NEGATIVE Urine Urobilinogen Ur Leukocyte Esterase Urine RBC TNTC H Urine WBC 11-25 H Ur Squamous Epith Cells NONE SEEN Urine Bacteria Rare Ur Microscopic Review INDICATED Urine Culture Comments INDICATED PD Medical Decision Making - ED course Complexity details: considered differential, d/w patient ED course: 72-year-old male with dysuria and hematuria. Bacteria in the urine as well. We will treat as a UTI and have him follow-up closely with his urologist. Patient is well-appearing, nontoxic. Afebrile. Similar to prior UTIs. Patient counseled regarding signs and symptoms for which I believe and urgent re- evaluation would be necessary. Patient with good understanding of and agreement to plan and is comfortable going home at this time This document was made in part using voice recognition software. While efforts are made to proofread this document, sound alike and grammatical errors may occur. Departure - Departure Disposition: Home, Self Care Clinical Impression: UTI (urinary tract infection) Qualifiers: Urinary tract infection type: acute cystitis Hematuria presence: with hematuria Qualified Code(s): N30.01 - Acute cystitis with hematuria Hematuria Qualifiers: Hematuria type: gross Qualified Code(s): R31.0 - Gross hematuria Condition: Good Instructions: ED Hematuria, ED UTI Cystitis Male Follow-Up: OCTAVIO LOPEZ DO [Primary Care Provider] - Delores Sr MD [Physician No Access] - Prescriptions: Cefdinir 300 mg PO BID #20 cap Comments: Your prescriptions were sent to [facility] in [place]. Please take all antibiotics until gone. It is important that you follow-up with urology to ensure there are no other issues with your urinary system. If the blood in the urine fails to resolve with treatment of the infection, you will likely need further investigation of your kidneys and bladder. Please return for fevers or worsening symptoms. Please do note that there is no urology available at this hospital. Please make sure you are also drinking plenty of water today to help prevent any clotting in your bladder. Discharge Date/Time: 12/21/22 11:51
== END 2022-12-21 11:51 | disposition home or self-care (01) ==
LOC: ED 10:27
DX: N30.01 Acute cystitis with hematuria (principal)
CPT/HCPCS: 81001; 81003; 87086; 96372; 99283

== ENCOUNTER 2023-02-11 16:35 | Emergency (ER) | payer MEDICARE, OTHER ==
[2023-02-11 16:49] VITALS: BP 139/73
[2023-02-11] MEDS ORDERED: PROPARACAINE 0.5% OPHTH DROPS 15 ML LEFTEYE STA (17:13)
--- NOTE | 2023-02-11 17:24 | ED Physician Documentation ---
PD HPI OPHTHO - Stated complaint Stated Complaint: L EYE PX - Chief complaint Chief Complaint: Heent - History obtained from History obtained from: Patient - History of Present Illness Timing - onset: Today Timing - duration: Minutes Timing - details: Abrupt onset, Still present Location: Left Quality / character: Burning, Throbbing, Sharp Associated symptoms: Redness, Swelling, FB sensation. No: Decreased vision, Loss of vision Contributing factors: Chemical exposure, base (aluminum chloride) Similar symptoms before: Has not had sx before Recently seen: Not recently seen - Additional information Additional information: 73-year-old great urinary shoe ring uses aluminum chloride to stop bleeding when he is shaving. Today he was shaving use some of the aluminum chloride and he went to put some eyedrops in and he picked up the wrong bottle and put drops of aluminum "laid directly into his eye. He had immediate severe pain and he immediately applied copious amounts of water to his eye. Despite the copious amounts of water he continues to have a foreign body sensation and has significant redness and dryness to the lower conjunctival sac.He has not been ill recently. Review of Systems Constitutional: denies: Fever Nose: denies: Congestion Throat: denies: Sore throat Respiratory: denies: Cough GI: denies: Vomiting, Diarrhea PD PAST MEDICAL HISTORY - Past Medical History Cardiovascular: Hypertension Respiratory: Pneumonia Endocrine/Autoimmune: HyPOthyroidism GI: GERD : Benign prostate hypertrophy, Retention, Other HEENT: Chronic vision loss, Chronic hearing loss, Other Psych: Post traumatic stress disorder, Other Musculoskeletal: Osteoarthritis Derm: Other - Past Surgical History Past Surgical History: Yes General: Other Ortho: Arthroscopic surgery HEENT: Tonsil/Adenoidectomy, Other - Present Medications Home Medications: Ambulatory Orders Medication Instructions Recorded Confirmed Thyroid,Pork [[place] Thyroid] 30 mg PO DAILY 08/07/15 10/28/22 Prazosin HCl 5 mg PO DAILY 04/20/17 10/28/22 Aspirin [Aspir-Low] 81 mg PO DAILY 05/13/17 10/28/22 Testosterone Cypionate 200 mg IM Q30D 05/13/17 10/29/22 [Depo-Testosterone] traMADol [Ultram] 50 mg PO Q4HR PRN #30 tablet 05/18/17 10/28/22 Ascorbic Acid [Vitamin C] 1,000 mg PO DAILY 10/28/22 10/28/22 Carbidopa/Levodopa 25/100 [Sinemet 1 each PO TID 10/28/22 10/29/22 25 mg/100 mg] Cetirizine [ZyrTEC] 10 mg PO ONCE 10/28/22 10/29/22 Multivitamin 1 each PO DAILY 10/28/22 10/28/22 [place]-3/Dha/Epa/Fish Oil [Fish Oil 1,200 mg PO DAILY 10/28/22 10/28/22 1,200 mg Softgel] hydrOXYzine HCL [Hydroxyzine HCl] 25 mg PO HS 10/28/22 10/28/22 traZODone [Desyrel] 50 mg PO HS 10/28/22 10/28/22 Cefdinir 300 mg PO BID #20 cap 12/21/22 Neomycin/Poly/Dex Ophth Drops 1 drops LEFTEYE QID #5 ml 02/11/23 [Maxitrol Ophth Drops] - Allergies Allergies/Adverse Reactions: Allergies Allergy/AdvReac Type Severity Reaction Status Date / Time amoxicillin trihydrate * AdvReac Unknown Verified 02/11/23 16:47 [From Augmentin] potassium clavulanate * AdvReac Unknown Verified 02/11/23 16:47 [From Augmentin] - Social History Does the pt smoke?: No Smoking Status: Never smoker Does the pt drink ETOH?: No Does the pt have substance abuse?: No - Immunizations Immunizations are current?: Yes - POLST Patient has POLST: No POLST Status: Full Code PD ED PE NORMAL - Vitals Vital signs reviewed: Yes (Hypertensive mild) - General General: Alert and oriented X 3, No acute distress, Well developed/nourished - HEENT HEENT: Atraumatic, PERRL, EOMI, Other (There is significant injection to the lower sclera on the left side the conjunctive a is dry. There is no cloudiness to the cornea the pH is 8. 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 He had significant burning with this and immediately flushed his eye. He arrives to the emergency department he has a pH of 8 and he is administered Alcaine and his eye is further irrigated. He initially has some stinging this eventually resolves completely. Recheck of his pH is 7. He is examined for corneal abrasion and has no fluoroscein uptake. We will place him on some drops and have him follow up with opthamology as needed. Departure - Departure Disposition: 01 Home, Self Care Clinical Impression: Chemical conjunctivitis of left eye Condition: Stable Instructions: ED Chemical Conjunctivitis Follow-Up: OCTAVIO LOPEZ DO [Primary Care Provider] - Your, eye doctor [Other] Prescriptions: Neomycin/Poly/Dex Ophth Drops [Maxitrol Ophth Drops] 1 drops LEFTEYE QID #5 ml Comments: Eddie today you got some base chemical in your eye and we have irrigated your eye thoroughly. If you continue to have a foreign body sensation in your eye after tomorrow follow-up with your eye doctor. I have E scribed some antibiotic drops for you to the [facility] in [place]. You should only need to use this 1 to 2 days. When your symptoms are resolved you can discontinue this and you do not necessarily need to follow-up with your immunochemist.
== END 2023-02-11 18:29 | disposition home or self-care (01) ==
LOC: ED 16:35
DX: T49.2X1A Poisoning by local astringents and local detergents, accidental (unintentional), initial encounter (principal); H10.212 Acute toxic conjunctivitis, left eye; Y92.009 Unspecified place in unspecified non-institutional (private) residence as the place of occurrence of the external cause
CPT/HCPCS: 99282; 99283; J3490

== ENCOUNTER 2023-05-06 12:38 | Outpatient (CLI) | payer MEDICARE, OTHER ==
[2023-05-06] MEDS ORDERED: iohexoL-300 100 ML VIAL IVP ONE (13:30)
--- NOTE | 2023-05-06 15:16 | CT Report ---
PROCEDURE: IVP INDICATIONS: GROSS HEMATURIA CONTRAST: 140mL Omni 300 TECHNIQUE: After the administration of intravenous contrast, 5 mm thick sections acquired from the diaphragms to the symphysis. 5 mm thick coronal and sagittal reformats were acquired. For radiation dose reducti on, the following was used: automated exposure control, adjustment of mA and/or kV according to regina ent size. COMPARISON: 01/24/2021 FINDINGS: Image quality: Good Lower chest: Basal scarring/atelectasis. Small possible hiatal hernia. Overall heart size within norm al limits. Solid organs: Liver appears unremarkable. Cholelithiasis. No pathologic biliary ductal dilation or pa ncreatic ductal dilation. No splenomegaly. No adrenal nodules. Left renal cyst is present. No solid renal mass identified. No hydronephrosis. No obstructing stone. No ureter filling defects or dilation. Areas of nonopacification may represent peristalsis. Vessels and lymph nodes: No abdominal aortic aneurysm. There are atherosclerotic calcifications. No l ymphadenopathy by size criteria. The main portal vein appears patent. Bowel and peritoneum: No bowel obstruction. No drainable abscess or pathologic ascites. Mild to moder ate fecal loading. Body wall: Bilateral fat-containing inguinal hernias and small umbilical hernia. Small internal fluid or nodule within the umbilical hernia is unchanged. Pelvis: Suspected TURP changes. Heterogeneous enlarged prostate. There is ill-defined soft tissue kuldip und the bladder apex and outlet, possibly related to the prostate BPH. Mild diffuse bladder wall enha ncement, not well evaluated on CT. Penile pump is seen. Bones: There are degenerative changes, no acute or suspicious finding. IMPRESSION: No solid renal mass on CT IVP. No hydronephrosis or calcified renal stone. Lower tract disease, including the above described prostate and bladder findings can be further evalu ated with cystoscopy, PSA correlation, and possible prostate MRI. These are not well evaluated on CT. Cholelithiasis. Other stable and incidental findings above. Reviewed by: Jerod Landa MD on 05/06/2023 3:14 PM PDT Approved by: Jerod Landa MD on 05/06/2023 3:14 PM PDT Station ID: [id number]
== END 2023-05-06 12:39 | disposition home or self-care (01) ==
LOC: DI 12:38
PROVIDERS: ATTEND Physician Assistant Medical
DX: R31.0 Gross hematuria (principal); K80.20 Calculus of gallbladder without cholecystitis without obstruction; N40.0 Benign prostatic hyperplasia without lower urinary tract symptoms
CPT/HCPCS: 74178; Q9967

== ENCOUNTER 2023-07-22 10:23 | Emergency (ER) | payer MEDICARE, OTHER ==
--- NOTE | 2023-07-22 10:56 | XRAY Report ---
PROCEDURE: Wrist 4 View RT INDICATIONS: Trauma TECHNIQUE: 3 views of the wrist were acquired. COMPARISON: None. FINDINGS: Bones: No fractures or dislocations. Osteoarthritic changes are noted throughout wrist joints. No s uspicious bony lesions. Scaphoid is grossly intact. Soft tissues: No suspicious soft tissue calcifications or masses. IMPRESSION: No acute bony abnormality. 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 Reviewed by: Louis Valdez MD on 07/22/2023 10:55 AM [facility] Approved by: Louis Valdez MD on 07/22/2023 10:55 AM [facility] Station ID: [id number]
--- NOTE | 2023-07-22 13:40 | ED Physician Documentation ---
PD HPI UPPER EXT INJURY - Stated complaint Stated Complaint: RT WRIST INJ - Chief complaint Chief Complaint: Ext Problem - History obtained from History obtained from: Patient - History of Present Illness Location: Right, Wrist Type of injury: No: Fall, Twist, Puncture wound Where injury occurred: Home Timing - onset: How many days ago (several) Timing - details: Gradual onset, Still present Associated symptoms: Swelling, Discolored (focal area of redness and marked tenderness ulnar palmar wrist. No skin lesions.). No: Weakness, Numbness Similar symptoms before: Has not had sx before Review of Systems Constitutional: denies: Fever, Chills Skin: denies: Abrasion (s), Laceration (s) Neurologic: reports: Numbness (ulnar side of thumb tip. He had been wearing wrist support that wraps at base of thumb initially.). denies: Focal weakness PD PAST MEDICAL HISTORY - Past Medical History Cardiovascular: Hypertension Respiratory: Pneumonia Endocrine/Autoimmune: HyPOthyroidism GI: GERD : Benign prostate hypertrophy, Retention, Other HEENT: Chronic vision loss, Chronic hearing loss, Other Psych: Post traumatic stress disorder, Other Musculoskeletal: Osteoarthritis, Other (no history of gout. ) Derm: Other - Past Surgical History Past Surgical History: Yes General: Other Ortho: Arthroscopic surgery HEENT: Tonsil/Adenoidectomy, Other - Present Medications Home Medications: Ambulatory Orders Medication Instructions Recorded Confirmed Thyroid,Pork [[place] Thyroid] 30 mg PO DAILY 08/07/15 10/28/22 Prazosin HCl 5 mg PO DAILY 04/20/17 10/28/22 Aspirin [Aspir-Low] 81 mg PO DAILY 05/13/17 10/28/22 Testosterone Cypionate 200 mg IM Q30D 05/13/17 10/29/22 [Depo-Testosterone] traMADol [Ultram] 50 mg PO Q4HR PRN #30 tablet 05/18/17 10/28/22 Ascorbic Acid [Vitamin C] 1,000 mg PO DAILY 10/28/22 10/28/22 Carbidopa/Levodopa 25/100 [Sinemet 1 each PO TID 10/28/22 10/29/22 25 mg/100 mg] Cetirizine [ZyrTEC] 10 mg PO ONCE 10/28/22 10/29/22 Multivitamin 1 each PO DAILY 10/28/22 10/28/22 [place]-3/Dha/Epa/Fish Oil [Fish Oil 1,200 mg PO DAILY 10/28/22 10/28/22 1,200 mg Softgel] hydrOXYzine HCL [Hydroxyzine HCl] 25 mg PO HS 10/28/22 10/28/22 traZODone [Desyrel] 50 mg PO HS 10/28/22 10/28/22 Cefdinir 300 mg PO BID #20 cap 12/21/22 Neomycin/Poly/Dex Ophth Drops 1 drops LEFTEYE QID #5 ml 02/11/23 [Maxitrol Ophth Drops] HYDROcod/ACETAM 5/325 [[place] 5/325] 1 ea PO Q6H PRN #14 tablet 07/22/23 Naproxen 500 mg PO BID #20 tab 07/22/23 - Allergies Allergies/Adverse Reactions: Allergies Allergy/AdvReac Type Severity Reaction Status Date / Time amoxicillin trihydrate * AdvReac Unknown Verified 02/11/23 16:47 [From Augmentin] potassium clavulanate * AdvReac Unknown Verified 02/11/23 16:47 [From Augmentin] - Social History Does the pt smoke?: No Smoking Status: Never smoker Does the pt drink ETOH?: No Does the pt have substance abuse?: No - Immunizations Immunizations are current?: Yes - POLST Patient has POLST: No POLST Status: Full Code PD ED PE NORMAL - Vitals Vital signs reviewed: Yes - General General: Alert and oriented X 3, Well developed/nourished - Derm Derm: Normal color, Warm and dry - Extremities Extremities: Other (palmar aspect of wrist on ulnar side at the hamate prominance with marked local redness and tenderness to even light touch focally. No skin sores/lesions. other than the redness. ) - Neuro Neuro: Alert and oriented X 3, No motor deficit, Normal speech, Other (mild decreased sensation to touch ulnar side tip of thumb. Base of thumb not tender nor redness. ) Results - Vitals Vitals: Vital Signs - 24 hr 07/22/23 07/22/23 10:31 14:29 Temperature 36.8 C 36.6 C Heart Rate 62 57 L Respiratory 16 16 Rate Blood Pressure 124/70 139/88 H O2 Saturation 99 97 Oxygen O2 Source Room air - Rads (name of study) wrist xray Relevant Findings:: Prelim report reviewed, EMP independent interpretation of test (no bony abnormalitiy) PD Medical Decision Making - ED course Complexity details: reviewed results, considered differential (such focal marked tenderness with local redness without skin lesions oerwise would be suggestive of gout or focal arthritis. Not expecting infection so localized and without nidus lesion. ), d/w patient Departure - Departure Disposition: 01 Home, Self Care Clinical Impression: Wrist pain, acute Condition: Stable Record reviewed to determine appropriate education?: Yes Follow-Up: KATHARINE MENDEZ MD [Primary Care Provider] - Prescriptions: Naproxen 500 mg PO BID #20 tab HYDROcod/ACETAM 5/325 [[place] 5/325] 1 ea PO Q6H PRN #14 tablet PRN Reason: Pain Comments: I do not see any skin sores or signs of an introduction point for infection or even a insect bite. Your x-ray is normal without any obvious bony abnormality in the area. Consideration would be some local inflammation such as tendinitis. Given the marked tenderness and redness of the area, other consideration would be a joint inflammation such as gout. At this point I would treat it with some anti-inflammatories. I wrote for higher strength naproxen to use twice daily with food for the next 7 to 10 days. To that add Tylenol 500 to 650 mg 4 times daily if regularly for the next several days to week for pain. For worse pain, add hydrocodone/acetaminophen every 6-8 hours if needed. I would anticipate a gradual improvement over the next 3 to 2 to 3 days. And resolution by 3 to 5 days. Recheck if not better in that timeframe 1 recheck if worsening. In particular watch for increasing redness or any opening of wounds or drainage, red streaks or general symptoms such as fever. At this point it does not not appear infection but more localized and inflammation. I am prescribing a short course of narcotic pain medication for you. These are potentially dangerous and addictive medications that should be used carefully. These medications may constipate you. Take an [id number]-[id number] stool softener such as docusate twice daily with plenty of water while taking these medications. If you go 24 hours without a bowel movement, take [id number] MiraLAX, per package instructions. Do not drink or drive while taking these medications. If you received narcotic or sedating medications while in the emergency department do not drive for 24 hours. Store this medication in a safe, secure place and out of reach of children. It is a violation of federal law to give or sell this medication to another person or to use in a manner other than prescribed. The ED will not refill narcotic prescriptions, including prescriptions lost or stolen. You can dispose of unwanted medications at the [facility]'s office or at several pharmacies such as [email or web address]. Forms: PCP List Discharge Date/Time: 07/22/23 14:30
[2023-07-22] MEDS ORDERED: NAPROXEN 250 MG TABLET PO STA (14:04)
[2023-07-22] MEDS ORDERED: dexAMETHasone 4 MG TABLET PO STA (14:04)
[2023-07-22] MEDS: HYDROcod/ACETAM 5/325 MG TABLET PO STA (14:20)
[2023-07-22 14:32] VITALS: BP 139/88; O2SAT 97
== END 2023-07-22 14:30 | disposition home or self-care (01) ==
LOC: ED 10:23
DX: M25.531 Pain in right wrist (principal); I10 Essential (primary) hypertension
CPT/HCPCS: 73110; 99283; 99284; A9270; J8540

== ENCOUNTER 2023-08-21 10:26 | Emergency (ER) | payer MEDICARE, OTHER ==
[2023-08-21 10:59] VITALS: BP 121/70; O2SAT 95
[2023-08-21 11:23] LABS: BILIRUBIN,URINE MODERATE (NEGATIVE); GLUCOSE, URINE (UA) NEGATIVE (NEGATIVE); KETONES,URINE (UA) TRACE mg/dL (NEGATIVE); LEUKOCYTE ESTERASE, URINE TRACE (NEGATIVE); NITRITE,URINE POSITIVE (NEGATIVE); OCCULT BLOOD,URINE LARGE (NEGATIVE); PROTEIN,URINE >=300 mg/dL (NEGATIVE); UROBILINOGEN,URINE 1 (NORMAL) E.U./dL (NORMAL)
[2023-08-21 11:27] LABS: CLARITY,URINE CLOUDY (CLEAR)
[2023-08-21 11:32] LABS: BACTERIA,URINE Moderate /HPF (None Seen); RBC,URINE TNTC /HPF (0-5); SQUAMOUS EPITHELIAL CELL,UR RARE Squamous (<= Few); WBC,URINE 0-3 /HPF (0-3)
--- NOTE | 2023-08-21 12:28 | ED Physician Documentation ---
PD HPI MALE - Stated complaint Stated Complaint: - Chief complaint Chief Complaint: UTI - History obtained from History obtained from: Patient - Additional information Additional information: 73-year-old male with history of prostate enlargement status post TURP in 2017 presents for 1 day of hematuria. States that exact same thing happened in November of this year, he was diagnosed with a urinary tract infection, which improved with antibiotics. He subsequently had a CAT scan performed in May and cystoscopy in May with urology, which he reports were "normal". Patient went to bed in his usual state of health, but when he woke up this morning he noticed bright red blood in his urine, prompting him to come in for evaluation. Denies fevers, chills, back pain, other complaints at this time. Review of Systems Constitutional: denies: Fever, Chills GI: denies: Abdominal Pain, Nausea, Vomiting : reports: Hematuria. denies: Dysuria, Frequency, Hesitancy, Unable to Void Musculoskeletal: denies: Neck pain, Back pain, Extremity pain PD PAST MEDICAL HISTORY - Past Medical History Cardiovascular: Hypertension Respiratory: Pneumonia Endocrine/Autoimmune: HyPOthyroidism GI: GERD : Benign prostate hypertrophy, Retention, Other HEENT: Chronic vision loss, Chronic hearing loss, Other Psych: Post traumatic stress disorder, Other Musculoskeletal: Osteoarthritis, Other Derm: Other - Past Surgical History Past Surgical History: Yes General: Other Ortho: Arthroscopic surgery HEENT: Tonsil/Adenoidectomy, Other - Present Medications Home Medications: Ambulatory Orders Medication Instructions Recorded Confirmed Thyroid,Pork [[place] Thyroid] 30 mg PO DAILY 08/07/15 10/28/22 Prazosin HCl 5 mg PO DAILY 04/20/17 10/28/22 Aspirin [Aspir-Low] 81 mg PO DAILY 05/13/17 10/28/22 Testosterone Cypionate 200 mg IM Q30D 05/13/17 10/29/22 [Depo-Testosterone] traMADol [Ultram] 50 mg PO Q4HR PRN #30 tablet 05/18/17 10/28/22 Ascorbic Acid [Vitamin C] 1,000 mg PO DAILY 10/28/22 10/28/22 Carbidopa/Levodopa 25/100 [Sinemet 1 each PO TID 10/28/22 10/29/22 25 mg/100 mg] Cetirizine [ZyrTEC] 10 mg PO ONCE 10/28/22 10/29/22 Multivitamin 1 each PO DAILY 10/28/22 10/28/22 [place]-3/Dha/Epa/Fish Oil [Fish Oil 1,200 mg PO DAILY 10/28/22 10/28/22 1,200 mg Softgel] hydrOXYzine HCL [Hydroxyzine HCl] 25 mg PO HS 10/28/22 10/28/22 traZODone [Desyrel] 50 mg PO HS 10/28/22 10/28/22 Cefdinir 300 mg PO BID #20 cap 12/21/22 Neomycin/Poly/Dex Ophth Drops 1 drops LEFTEYE QID #5 ml 02/11/23 [Maxitrol Ophth Drops] HYDROcod/ACETAM 5/325 [[place] 5/325] 1 ea PO Q6H PRN #14 tablet 07/22/23 Naproxen 500 mg PO BID #20 tab 07/22/23 Sulfamethox/Trimeth 800/160 1 each PO BID #20 tablet 08/21/23 [Bactrim Ds 800/160] - Allergies Allergies/Adverse Reactions: Allergies Allergy/AdvReac Type Severity Reaction Status Date / Time amoxicillin trihydrate * AdvReac Unknown Verified 02/11/23 16:47 [From Augmentin] potassium clavulanate * AdvReac Unknown Verified 02/11/23 16:47 [From Augmentin] - Social History Does the pt smoke?: No Smoking Status: Never smoker Does the pt drink ETOH?: No Does the pt have substance abuse?: No - Immunizations Immunizations are current?: Yes - POLST Patient has POLST: No POLST Status: Full Code PD ED PE NORMAL - Vitals Vital signs reviewed: Yes - General General: Alert and oriented X 3, No acute distress, Well developed/nourished - HEENT HEENT: Atraumatic - Neck Neck: Supple, no meningeal sign - Cardiac Cardiac: RRR, Strong equal pulses - Respiratory Respiratory: No respiratory distress, Clear bilaterally - Abdomen Abdomen: Soft, Non tender, Non distended - Back Back: No CVA TTP, No spinal TTP - Derm Derm: Normal color, Warm and dry, No rash - Extremities Extremities: No deformity, No tenderness to palpate, Normal ROM s pain - Neuro Neuro: Alert and oriented X 3, manager of clinical 2-12 intact, No motor deficit, Normal speech Results - Vitals Vitals: Vital Signs - 24 hr 08/21/23 10:53 Temperature 36.3 C L Heart Rate 62 Respiratory 15 Rate Blood Pressure 121/70 O2 Saturation 95 Oxygen O2 Source Room air - Labs Labs: Laboratory Tests 08/21/23 11:07 Urine Color BROWN Urine Clarity CLOUDY Urine pH 5.0 Ur Specific [place] >=1.030 H Urine Protein >=300 H Urine Glucose (UA) NEGATIVE Urine Ketones TRACE Urine Occult Blood LARGE H Urine Nitrite POSITIVE H Urine Bilirubin MODERATE H Urine Urobilinogen 1 (NORMAL) Ur Leukocyte Esterase TRACE H Urine RBC TNTC H Urine WBC 0-3 Ur Squamous Epith Cells RARE Squamous Urine Bacteria Moderate H Ur Microscopic Review INDICATED Urine Culture Comments INDICATED PD Medical Decision Making - ED course Complexity details: reviewed old records, reviewed results, re-evaluated patient, considered differential, d/w patient, d/w family ED course: This is an otherwise well-appearing patient with 1 day of hematuria. Records reviewed, patient was seen for hematuria in November earlier this year. I reviewed the CT report from May that showed a possibly enlarged prostate, but no other acute findings. Patient reports unremarkable cystoscopy 2 months prior. There are no physical exam abnormalities, no CVA tenderness bilaterally. Urinalysis with RBCs, nitrites, bacteria. Urine culture sent for analysis. While patient was treated for UTI in November his culture did not grow any organisms, however in the presence of moderate bacteria, nitrites, blood we will treat again as urinary tract infection. Bactrim sent to pharmacy of choice. I brought up the possibility of starting Flomax with the patient, however he is reluctant to start this medication as he does not want to be on any additional medications long-term. I recommended that he discuss possibility of starting Flomax with his urologist. Patient counseled to drink plenty of fluids, and to follow-up with his urology for further management of hematuria. Departure - Departure Disposition: 01 Home, Self Care Clinical Impression: UTI (urinary tract infection) Qualifiers: Urinary tract infection type: acute cystitis Hematuria presence: with hematuria Qualified Code(s): N30.01 - Acute cystitis with hematuria Hematuria Qualifiers: Hematuria type: unspecified type Qualified Code(s): R31.9 - Hematuria, unspecified Condition: Stable Instructions: ED UTI Cystitis Male Prescriptions: Sulfamethox/Trimeth 800/160 [Bactrim Ds 800/160] 1 each PO BID #20 tablet Discharge Date/Time: 08/21/23 12:45
== END 2023-08-21 12:45 | disposition home or self-care (01) ==
LOC: ED 10:26
DX: N30.01 Acute cystitis with hematuria (principal)
CPT/HCPCS: 81001; 81003; 87086; 99283

== ENCOUNTER 2023-09-04 18:18 | Outpatient (CLI) | payer MEDICARE, OTHER ==
--- NOTE | 2023-09-07 02:43 | Ultrasound Report ---
PROCEDURE: Renal (Retroperitoneal) INDICATIONS: GROSS HEMATURIA TECHNIQUE: Real-time scanning was performed of the retroperitoneal organs, with image documentation. COMPARISON: None. FINDINGS: Kidneys: Kidneys are normal in size. Right kidney measures 12.3 cm long; left kidney measures 12.6 cm long. Right renal cortical thickness is 1.8 cm; left renal cortical thickness is 1.5 cm. No nasrin d masses, hydronephrosis, or nephrolithiasis. Left simple cyst measuring 2.4 x 2.3 cm. Bladder: Pre-void bladder volume is 96.1 mL. Post-void residual is 5.4 mL. Pre-void images demonst rate no intraluminal masses or stones. On pre-void images, ureteral jets are not visualized related to patient unable to maintain a full bladder. (Of note, ureteral jets may not be detectable in up to 25% of cases due to insufficient differences in specific gravity between ureteral and bladder urine) . Miscellaneous: No free abdominal fluid. Prostatomegaly with prostate measuring 7.0 x 5.5 x 6.5 cm IMPRESSION: No nephrolithiasis or hydronephrosis. Left renal simple cyst measuring 2.4 cm. Prostatomegaly. Reviewed by: Dana Rodriguez MD on 09/07/2023 2:42 AM PST Approved by: Dana Rodriguez MD on 09/07/2023 2:42 AM PST Station ID: [id number]
== END 2023-09-04 18:19 | disposition home or self-care (01) ==
LOC: DI 18:18
PROVIDERS: ATTEND Physician Assistant Medical
DX: N28.1 Cyst of kidney, acquired (principal); N40.0 Benign prostatic hyperplasia without lower urinary tract symptoms; R31.0 Gross hematuria